=== PATIENT | female | born 1975 | race Caucasian/White ===

== ENCOUNTER 2020-01-05 22:11 | Emergency (ER) | payer SELFPAY ==
[2020-01-05 22:44] VITALS: BP 146/83; PULSE 91; RESP 18; TEMP 36.9; O2SAT 97; BMI 29.5
--- NOTE | 2020-01-05 22:59 | CTR_ITS ---
PROCEDURE INFORMATION: Exam: CT Abdomen And Pelvis With Contrast Exam date and time: 01/05/2020 11:41 PM Age: 44 years old Clinical indication: Other: Blood in stool; Abdominal pain; Acute; Prior surgery; Surgery date: 6+ months; Surgery type: Hysterectomy, bladder; Additional info: Diffuse abd pain, blood in stool TECHNIQUE: Imaging protocol: Computed tomography of the abdomen and pelvis with intravenous contrast. Total DLP: 1445.56 mGy-cm Radiation optimization: All CT scans at this facility use at least one of these dose optimization techniques: automated exposure control; mA and/or kV adjustment per patient size (includes targeted exams where dose is matched to clinical indication); or iterative reconstruction. Contrast material: OMNI 300; Contrast volume: 95 ml; Contrast route: 20G; COMPARISON: No relevant prior studies available. FINDINGS: Liver: Normal. No mass. Gallbladder and bile ducts: The gallbladder appears contracted. There is some haziness seen adjacent to the gallbladder wall. Acalculous cholecystitis cannot be entirely excluded. Pancreas: Normal. No ductal dilation. Spleen: Normal. No splenomegaly. Adrenals: Normal. No mass. Kidneys and ureters: Normal. No hydronephrosis. Stomach and bowel: See Reproductive Finding. Appendix: The appendix is visualized and is normal in configuration. Intraperitoneal space: Unremarkable. No free air. No significant fluid collection. Vasculature: Unremarkable. No abdominal aortic aneurysm. Lymph nodes: Unremarkable. No enlarged lymph nodes. Bladder: Unremarkable as visualized. Reproductive: Status post hysterectomy. There are some strandy and hazy opacity seen adjacent to the vaginal cuff possibly representing postoperative scarring although inflammatory changes cannot be excluded. There is some bowel wall thickening of the rectosigmoid junction adjacent to the strandy opacities and colitis cannot be excluded. Bones/joints: Unremarkable. No acute fracture. Soft tissues: Unremarkable. CT/CT abdomen pelvis w con* [id number] IMPRESSION: 1. There are strandy opacity seen within the pelvic floor adjacent to the distal sigmoid colon. There is mild bowel wall thickening of the distal sigmoid colon as well. Colitis cannot be excluded. 2. Hazy opacities are seen along the serosal margin of the contracted gallbladder. Acalculous cholecystitis cannot be excluded. Radiation Dose CTDIVOL = (mGy): DLP = 1445.56 (mGy-cm)
--- NOTE | 2020-01-05 23:00 | W.ED.ABDPA2 ---
HPI - Abdominal Pain General: Chief Complaint: Abdominal Pain Stated Complaint: abd pain Time Seen by Provider: 01/05/20 22:59 Source: patient Mode of arrival: ambulatory Limitations: no limitations History of Present Illness: HPI narrative: Patient comes in with lower abdominal pain and left abdominal pain for approximately 1 week. Patient reports worsening discomfort and noticeable blood in the stool. Patient states he feels like burning when she pees. Patient denies any pain with defecation. Patient appears well. Patient appears in mild to moderate pain. Associated Symptoms: Reports dysuria Review of Systems General: Reports: 10 or more systems reviewed and unremarkable except in HPI and below GI: Reports: abdominal pain : Reports: painful urination PFSH ED PFSH: Social History Smoking and tobacco status: current every day smoker Physical Exam Const: COMMON NORMALS: no apparent distress and oriented x3 GENERAL APPEARANCE: cooperative HENMT: COMMON NORMALS: normocephalic, external ears normal, EAC's normal, TM's normal bilaterally and external nose normal HEAD & SCALP: normal to inspection and normocephalic FACE & SINUS: normal facial exam NOSE: external nose normal GENERAL EAR: hearing not grossly impaired EXTERNAL EAR: Yes external ears normal EXTERNAL AUDITORY CANAL: EAC's normal TYMPANIC MEMBRANE: TM's normal bilaterally MOUTH: oral and palatal mucosa normal THROAT: posterior oropharynx normal Eye: COMMON NORMALS: PERRL and EOMs intact bilaterally PUPIL: Yes PERRL Neck/C-Spine: COMMON NORMALS: full ROM and no lymphadenopathy Lymph: LYMPHATIC: no lymphedema noted Chest: COMMONS NORMALS: inspection of chest normal and palpation of chest normal Resp: COMMON NORMALS: normal respiratory effort AUSCULTATION: wheezes expiratory wheezes Cardio: COMMON NORMALS: regular rate and regular rhythm RATE: regular rate RHYTHM: regular rhythm GI: COMMON NORMALS: normal to inspection, nondistended, normoactive bowel sounds PALPATION: Yes tender (diffuse, increase left abd wall) : COMMON NORMALS: Yes no CVA tenderness BLADDER/KIDNEY EXAM: Yes no CVA tenderness Back/Pelvis: COMMON NORMALS: no CVA tenderness and thoracic and lumbar spine normal to inspection Extremity: COMMON NORMALS: normal to inspection GENERAL: No edema Neuro: COMMON NORMALS: oriented x3, moves all extremities and no focal motor deficits Psych: COMMON NORMALS: mental status grossly normal and cooperative Skin: COMMON NORMALS: no rashes or lesions noted GENERAL SKIN EXAM: no rashes or lesions noted Course Vital Signs: Vital signs: Vital Signs Temperature 98.5 F 01/05/20 22:44 Pulse Rate 74 01/06/20 01:08 Respiratory Rate 18 01/06/20 01:08 Blood Pressure 123/86 01/06/20 01:08 Pulse Oximetry 98 01/06/20 01:08 MDM - Abdominal Pain MDM Narrative: Medical decision making narrative: Patient comes in today with left lower quadrant pain and pelvic pain. Patient states that she has had some blood in her stool for the last 2 to 3 weeks, and now she is also noted some pain with urination. Patient appears well. Exam notes tenderness to the left lower abdomen. Vital signs are normal. Differential diagnosis includes diverticulitis, UTI, renal calculi, appendicitis, colitis. Laboratory values were fairly normal. CBC showed no abnormalities, CMP showed no abnormalities, and UA was clean. CT scan did note some colitis in the left lower sigmoid colon. Also some pelvic wall inflammation. And some possible inflammation of the gallbladder. Laboratory values did not confirm the gallbladder problem. Suspect patient may have some segmental colitis due to diverticulosis we will treat for this with Cipro and Flaghardik. With recommendations for follow-up with surgeon for colonoscopy. Patient reported understanding and agreed to plan. Lab Data: Labs: Lab Results 01/05/20 01/05/20 01/05/20 Range/Units 22:51 23:00 23:00 WBC 7.0 (4.0-10.0) 10^3/ uL RBC 4.83 (4.1-5.3) 10^6/u L Hgb 13.7 (11.5-15.3) g/dL Hct 41.7 (37.0-47.0) % MCV 86.3 (81-99) fL MCH 28.4 (28.0-34.0) pg MCHC 32.9 (30.0-36.0) g/dL RDW 13.1 (12.1-15.1) % Plt Count 281 (130-400) 10^3/c mm MPV 10.7 H (7.4-10.4) fL Neut % (Auto) 36.0 % Lymph % (Auto) 41.3 % [place] % (Auto) 14.8 % Eos % (Auto) 7.4 % Baso % (Auto) 0.4 % Neut # (Auto) 2.5 (1.8-7.7) 10^3/u L Lymph # (Auto) 2.9 (0.8-4.8) 10^3/u L [place] # (Auto) 1.0 H (0.2-0.9) 10^3/u L Eos # (Auto) 0.5 (0.0-0.8) 10^3/u L Baso # (Auto) 0.0 (0.0-0.1) 10^3/u L Nucleated RBC % (a uto) 0 % Nucleated RBCs # 0.0 /100WBC Sodium 137 (136-145) mmol/L Potassium 4.1 (3.5-5.1) mmol/L Chloride 100 (98-107) mmol/L Carbon Dioxide 26 (22-29) mmol/L Anion Gap 15.1 (5-19) BUN 10 (6-20) mg/dL Creatinine 0.8 (0.5-0.9) mg/dL GFR Calculation 77.2 L (90-130) mL/min Glucose 95 (65-115) mg/dL Calcium 9.9 (8.5-10.5) mg/dL Total Bilirubin 0.2 (0.15-1.2) mg/dL AST 27 (0-32) U/L ALT 29 (0-33) U/L Alkaline Phosphata se 117 H (35-105) IU/L Total Protein 8.0 (6.6-8.7) g/dL Albumin 4.5 (3.5-5.2) g/dL Globulin 3.5 (1.3-4.6) g/dL Lipase 18 (13-60) U/L HCG, Qual (Negative) Urine Color Yellow (Yellow) Urine Appearance Clear (CLEAR) Urine pH 5 (5-7) Ur Specific Gravit y 1.020 (1.005-1.030) Urine Protein Neg (Negative) Urine Glucose (UA) Norm (Normal) Urine Ketones Negative (Negative) Urine Blood Neg (Negative) Urine Nitrate Negative (Negative) Urine Bilirubin Neg (NEGATIVE) Urine Urobilinogen Norm (Negative) mg/dL Ur Leukocyte Jacinda ase Negative (Negative) 01/05/20 Range/Units 23:00 WBC (4.0-10.0) 10^3/ uL RBC (4.1-5.3) 10^6/u L Hgb (11.5-15.3) g/dL Hct (37.0-47.0) % MCV (81-99) fL MCH (28.0-34.0) pg MCHC (30.0-36.0) g/dL RDW (12.1-15.1) % Plt Count (130-400) 10^3/c mm MPV (7.4-10.4) fL Neut % (Auto) % Lymph % (Auto) % [place] % (Auto) % Eos % (Auto) % Baso % (Auto) % Neut # (Auto) (1.8-7.7) 10^3/u L Lymph # (Auto) (0.8-4.8) 10^3/u L [place] # (Auto) (0.2-0.9) 10^3/u L Eos # (Auto) (0.0-0.8) 10^3/u L Baso # (Auto) (0.0-0.1) 10^3/u L Nucleated RBC % (a uto) % Nucleated RBCs # /100WBC Sodium (136-145) mmol/L Potassium (3.5-5.1) mmol/L Chloride (98-107) mmol/L Carbon Dioxide (22-29) mmol/L Anion Gap (5-19) BUN (6-20) mg/dL Creatinine (0.5-0.9) mg/dL GFR Calculation (90-130) mL/min Glucose (65-115) mg/dL Calcium (8.5-10.5) mg/dL Total Bilirubin (0.15-1.2) mg/dL AST (0-32) U/L ALT (0-33) U/L Alkaline Phosphata se (35-105) IU/L Total Protein (6.6-8.7) g/dL Albumin (3.5-5.2) g/dL Globulin (1.3-4.6) g/dL Lipase (13-60) U/L HCG, Qual Negative (Negative) Urine Color (Yellow) Urine Appearance (CLEAR) Urine pH (5-7) Ur Specific Gravit y (1.005-1.030) Urine Protein (Negative) Urine Glucose (UA) (Normal) Urine Ketones (Negative) Urine Blood (Negative) Urine Nitrate (Negative) Urine Bilirubin (NEGATIVE) Urine Urobilinogen (Negative) mg/dL Ur Leukocyte Jacinda ase (Negative) Discharge Plan Discharge Patient Disposition: Home, Self-Care Clinical Impression: Segmental colitis Qualifiers: Digestive disease complication type: unspecified complication Qualified Code(s): K50.119 - Crohn's disease of large intestine with unspecified complications Condition: Stable Prescriptions: New Cipro 500 mg tablet 500 mg PO BID Qty: 14 RF: 0 metronidazole 500 mg tablet 500 mg PO BID 7 Days Qty: 14 RF: 0 hydrocodone-acetaminophen 5-325 mg tablet 1 tab PO Q8H PRN (Reason: pain) Qty: 7 RF: 0 Discharge Orders: Discharge Order (Routine); Ordered 01/06/20 Ordered By: Jason Stock Referrals: Natalie Eric, [facility] [Primary Care Provider] - Discharge Diet: Usual diet Discharge Activity: Increase activity as tolerated Patient Instructions: Infectious Colitis (ED) Activity Restrictions/Additional Instructions: Drink plenty of fluids Activity as tolerated Medications as directed Follow-up with primary care in one week Case management will contact you regarding follow-up appointment for surgeon for colonoscopy. [email or web address] Discharge Date/Time: 01/06/20 01:08 Coding Level of Care Code ED Set Up [employer] Automatic Line for Justine Fwd Exam Comprehensive
[2020-01-05 23:09] LABS: Basophils % 0.4 %; Eosinophils # 0.5 10^3/uL (0.0-0.8); Eosinophils % 7.4 %; Hematocrit 41.7 % (37.0-47.0); Hemoglobin 13.7 g/dL (11.5-15.3); Lymphocytes # 2.9 10^3/uL (0.8-4.8); Lymphocytes % 41.3 %; Mean Corpuscular HGB Conc 32.9 g/dL (30.0-36.0); Mean Corpuscular Hemoglobin 28.4 pg (28.0-34.0); Mean Corpuscular Volume 86.3 fL (81-99); Mean Platelet Volume 10.7 fL (7.4-10.4); Monocytes % 14.8 %; Neutrophils # 2.5 10^3/uL (1.8-7.7); Nucleated Red Blood Cells % 0 %; Platelet Count 281 10^3/cmm (130-400); Red Blood Count 4.83 10^6/uL (4.1-5.3); Red Cell Distribution Width 13.1 % (12.1-15.1)
[2020-01-05] MEDS: HYDROcodone-acetaminophen 7.5-325 mg Tablet 1 TAB PO (23:12)
[2020-01-05] MEDS: ondansetron 4 MG Tablet PO (23:13)
[2020-01-05 23:21] LABS: Add Urine Microscopic? NO
[2020-01-05 23:26] LABS: Alanine Aminotransferase 29 U/L (0-33); Albumin Level 4.5 g/dL (3.5-5.2); Alkaline Phosphatase 117 IU/L (35-105); Anion Gap 15.1 (5-19); Aspartate Amino Transferase 27 U/L (0-32); Blood Urea Nitrogen 10 mg/dL (6-20); Calcium 9.9 mg/dL (8.5-10.5); Carbon Dioxide 26 mmol/L (22-29); Chloride 100 mmol/L (98-107); Creatinine Clr Calc Pharmacy 105.4336; Globulin 3.5 g/dL (1.3-4.6); Glomerular Filtration Rate 77.2 mL/min (90-130); Glucose 95 mg/dL (65-115); Lipase 18 U/L (13-60); Potassium 4.1 mmol/L (3.5-5.1); Sodium 137 mmol/L (136-145); Total Bilirubin 0.2 mg/dL (0.15-1.2)
[2020-01-05] MEDS: sodium chloride 0.9% 1,000 ML 999 ML IV (23:27)
[2020-01-05 23:28] LABS: Bilirubin Urine Neg (NEGATIVE); Blood Urine Neg (Negative); Glucose Urine UA Norm (Normal); Ketones Urine Negative (Negative); Leukocyte Esterase Urine Negative (Negative); Nitrate Urine Negative (Negative); Protein Urine Neg (Negative); Urine Appearance Clear (CLEAR); Urine Color Yellow (Yellow); Urobilinogen Urine Norm (Negative); pH Urine 5 (5-7)
[2020-01-05 23:36] LABS: HCG, Serum Qual Negative (Negative)
[2020-01-06] MEDS: iohexol 300 mg/mL 100 mL Btl IV (00:18)
[2020-01-06] MEDS: ciprofloxacin 500 mg Tablet PO (01:01)
[2020-01-06] MEDS: metroNIDAZOLE 500 MG Tablet PO (01:01)
[2020-01-06 01:08] VITALS: BP 123/86; PULSE 74; RESP 18; O2SAT 98
--- NOTE | 2020-01-06 14:03 | DCPLANNER ---
sourcing manager had message to schedule a follow up appointment for patient with [facility]. sourcing manager called patient to confirm that patient wanted to have the appointment scheduled. sourcing manager was unable to speak with patient at this time a voicemail was left for patient to return counter caser phone call.
== END 2020-01-06 01:08 | disposition home or self-care (01) ==
PROVIDERS: Emergency Provider Nurse Practitioner Family; Family Provider Nurse Practitioner; PCP Nurse Practitioner
DX: K50.10 Crohn's disease of large intestine without complications (principal); F17.200 Nicotine dependence, unspecified, uncomplicated
CPT/HCPCS: 74177; 80053; 81003; 83690; 84703; 85025; 96360; 99282; 99283; J7030; Q0162; Q9967

== ENCOUNTER 2020-04-14 23:51 | Emergency (ER) | payer SELFPAY ==
[2020-04-15 00:19] VITALS: BP 136/88; PULSE 74; RESP 14; TEMP 36.8; O2SAT 98; BMI 29.5
--- NOTE | 2020-04-15 00:29 | ED_ITS ---
HPI - Neuro Symptoms/Deficit General: Chief Complaint: Neuro Symptoms/Deficit Stated Complaint: high bp/dizziness Time Seen by Provider: 04/15/20 00:29 History of Present Illness: HPI Narrative: Oxana is a nice 44-year-old female who states that about 5 PM today she felt like she developed a headache in the left side her for her face became numb. She had noticed the previous day that her blood pressure was elevated but did not have the symptoms of headache and facial numbness till today. Because they persisted and she was getting concerned about the possibility of a stroke she presented here to the emergency department. She states her left arm feels strange but other than that she denies any other complaints or concerns. Associated symptoms: Reports headache(s); Deny chest pain, diaphoresis, malaise, nausea, syncope, vertigo or vomiting Review of Systems Const: Denies: fever(s), chills, body aches, fatigue, malaise or diaphoresis Eyes: Denies: change in vision, blind spots or photophobia ENMT: Denies: throat pain, odynophagia, hoarseness, swelling of lips/tongue, ear or mastoid pain, ear discharge, change in hearing or nasal discharge Card: Denies: chest pain, palpitations, irregular heart rhythm, edema, lightheadedness, syncope, pre-syncope, dyspnea on exertion or orthopnea Resp: Denies: dyspnea, productive cough, non-productive cough, wheezing, hemoptysis or chest congestion GI: Denies: abdominal pain, nausea, vomiting, hematemesis, coffee ground emesis, heartburn, diarrhea, constipation, GI cramping, hematochezia or melena : Denies: flank pain, dysuria, urinary frequency, urinary urgency or hematuria Musc: Denies: neck pain, back pain, extremity pain, extremity swelling, joint pain, joint swelling, joint redness, joint warmth or joint stiffness Skin/Breast: Denies: rash, pruritus, erythema, skin tenderness or jaundice Neuro: Reports: headache(s), numbness in extremities and weakness in extremities; Denies: lack of coordination, difficulty walking, dizziness, vertigo, confusion or Slurred speech present Hudson/Lymph: Denies: easy bruising, easy bleeding, petechiae, purpura or enlarged lymph nodes All/Imm: Denies: urticaria, throat swelling, tongue swelling, facial swelling or acute wheezing PFSH ED PFSH: Medical History (Updated 04/15/20 @ 02:58 by Jennifer Willingham) Migraines Social History Smoking and tobacco status: current every day smoker NIH stroke score NIHSS: Level Of Consciousness - 1a: 0 Level Of Consciousness Questions - 1b: Both Correct Level Of Consciousness Commands - 1c: Both Correct Best Gaze - 2: Normal Visual Santos - 3: No Visual Loss Facial Palsy - 4: Normal Motor Arm Right - 5: No Drift Motor Arm Left - 5: Drift Motor Leg Right - 6: No Drift Motor Leg Left - 6: Drift Limb Ataxia - 7: Present In One Limb Sensory - 8: Mild To Moderate Loss Best Language - 9: No Aphasia Dysarthia - 10: Normal Extinction And Inattention - 11: 0 Score: Total Score: 4 Physical Exam Const: COMMON NORMALS: no acute distress, patient oriented x3, no limitations, healthy appearing and well nourished GENERAL APPEARANCE: cooperative, well kempt and well developed HENMT: COMMON NORMALS: normocephalic, atraumatic, hearing grossly normal bilaterally, external ears normal, EAC's normal, Normal external nose present and moist oral mucous membranes HEAD & SCALP: normocephalic and atraumatic NOSE: Normal external nose present and Normal nares present EXTERNAL EAR: Yes external ears normal EXTERNAL AUDITORY CANAL: EAC's normal MOUTH: Normal oral and palatal mucosa present, lip normal and tongue normal Eye: COMMON NORMALS: Equal, round and reactive pupils present, EOMs intact bilaterally, conjunctivae normal and no scleral icterus GENERAL EYE: appearance normal, both eyes and all related structures ALIGNMENT: Yes alignment normal PERIORBITAL: periorbital findings normal EYELID: eyelids normal CONJUNCTIVA: Yes conjunctivae normal SCLERA: sclerae normal PUPIL: Yes Equal, round and reactive pupils present Neck/C-Spine: COMMON NORMALS: full ROM, no lymphadenopathy, supple, no me ningeal signs and no JVD GENERAL: Yes normal visual inspection and Yes trachea midline Chest: COMMONS NORMALS: normal inspection of the chest and normal palpation of entire chest wall Resp: COMMON NORMALS: normal respiratory effort, No retractions, No use of accessory muscles and clear to auscultation bilaterally EFFORT & INSPECTION: Yes able to speak in complete sentences and Yes symmetric chest movement AUSCULTATION: clear to auscultation bilaterally, no crackles, no rales, no rhonchi and no wheezes Cardio: COMMON NORMALS: no JVD, regular rate, regular rhythm, S1 normal heart sound present, S2 normal heart sound present, No gallops present (Cardio), No clicks present (Cardio), No murmurs present (Cardio) and No rub (Cardio) RATE: regular rate RHYTHM: regular rhythm HEART SOUNDS: S1 normal heart sound present and S2 normal heart sound present GI: COMMON NORMALS: Soft to palpation and No hepatosplenomegaly present PALPATION: Yes Soft to palpation, No Tenderness to palpation present (GI), No Guarding due to palpation present (GI), No Rigid due to palpation, Yes No hepatosplenomegaly present, No Hernia present, No Palpable mass present and No Pulsatile mass present : COMMON NORMALS: Yes no CVA tenderness BLADDER/KIDNEY EXAM: Yes no CVA tenderness EXTERNAL FEMALE EXAM: No Hernia present Back/Pelvis: COMMON NORMALS: no CVA tenderness, thoracic and lumbar spine normal to inspection, no thoracic nor lumbar tenderness and thoraco-lumbar ROM normal Extremity: COMMON NORMALS: normal to inspection, full ROM, capillary refill normal, no joint enlargement, no clubbing, cyanosis or edema and no calf ten derness Neuro: COMMON NORMALS: patient oriented x3 MENINGEAL SIGNS: Yes no meningeal signs Psych: COMMON NORMALS: mental status grossly normal, Normal thought process present, cooperative, normal affect, speech normal and activity/motor behavior normal APPEARANCE: Yes well kempt SPEECH: Yes normal speech THOUGHT PROCESS: Normal thought process present Skin: COMMON NORMALS: no rashes or lesions noted, turgor normal, no jaundice, no petechiae and no mottling GENERAL SKIN EXAM: no rashes or lesions noted and turgor normal Course ED course: 0213 -the patient is now refusing to stay for further evaluation. Her symptoms and headache are greatly improved but not resolved. She understands that if she leaves she will be leaving AGAINST MEDICAL ADVICE but at this time she she states that is what she wants to do. I am going to give her until her Depakote has finished infusing to see if she will change her mind and she understands this but at that time she states she will make her decision. Vital Signs: Vital signs: Vital Signs Temperature 98.2 F 04/15/20 00:19 Pulse Rate 64 04/15/20 03:36 Respiratory Rate 16 04/15/20 03:36 Blood Pressure 105/77 04/15/20 03:36 Pulse Oximetry 95 04/15/20 03:36 MDM - Neuro Symptoms/Deficit MDM Narrative: Medical decision making narrative: The case had been reviewed with Dr. Mercado and he had agreed to admit for CVA versus complicated migraine but the patient is changed her mind. She states her symptoms are significantly better although they have not completely resolved. I have informed the patient that this could be a prelude to a bigger stroke or she could have complication from this stroke to the extent it would threaten her life. Despite this the patient is refusing to stay and is demanding to go home. I have expressed to her that if she leaves she will be leaving AGAINST MEDICAL ADVICE and that a stroke could be a disabling thing as well as life-threatening problem but despite this warning she refuses and wants to leave. She believes this is just her migraine and if she can go home and get some sleep she will feel better. After much discussion the patient still understands that she is welcome to return but at this time she is still insisting upon discharge. The patient was warned but she was also welcome to to return. Lab Data: Attestation: I reviewed the patient's lab results. Labs: Lab Results 04/15/20 04/15/20 04/15/20 Range/Units 00:40 00:40 00:40 WBC 8.3 (4.0-10.0) 10^3/ uL RBC 4.71 (4.1-5.3) 10^6/u L Hgb 13.8 (11.5-15.3) g/dL Hct 41.2 (37.0-47.0) % MCV 87.5 (81-99) fL MCH 29.3 (28.0-34.0) pg MCHC 33.5 (30.0-36.0) g/dL RDW 13.1 (12.1-15.1) % Plt Count 262 (130-400) 10^3/c mm MPV 11.2 H (7.4-10.4) fL Neut % (Auto) 56.3 % Lymph % (Auto) 30.0 % [place] % (Auto) 9.2 % Eos % (Auto) 3.9 % Baso % (Auto) 0.4 % Neut # (Auto) 4.7 (1.8-7.7) 10^3/u L Lymph # (Auto) 2.5 (0.8-4.8) 10^3/u L [place] # (Auto) 0.8 (0.2-0.9) 10^3/u L Eos # (Auto) 0.3 (0.0-0.8) 10^3/u L Baso # (Auto) 0.0 (0.0-0.1) 10^3/u L Nucleated RBC % (a uto) 0 % Nucleated RBCs # 0.0 /100WBC PT 12.30 (10.5-13.3) SECO NDS INR 0.89 (0.8-1.2) APTT 32.5 (23.9-36.7) SECO NDS Sodium 139 (136-145) mmol/L Potassium 4.1 (3.5-5.1) mmol/L Chloride 103 (98-107) mmol/L Carbon Dioxide 24 (22-29) mmol/L Anion Gap 16.1 (5-19) BUN 8 (6-20) mg/dL Creatinine 0.7 (0.5-0.9) mg/dL GFR Calculation 90.1 (90-130) mL/min Glucose 109 (65-115) mg/dL Calculated Osmolal ity 284 L (285-295) mOsm/k g Calcium 9.7 (8.5-10.5) mg/dL Magnesium 2.6 H (1.7-2.3) mg/dL Total Bilirubin 0.2 (0.15-1.2) mg/dL AST 20 (0-32) U/L ALT 17 (0-33) U/L Alkaline Phosphata se 99 (35-105) IU/L Troponin T Baselin e (0-10) ng/mL Troponin T 120 Min white earth (0-10) ng/mL Delta Troponin T (0-10) ABS# Total Protein 7.1 (6.6-8.7) g/dL Albumin 4.4 (3.5-5.2) g/dL Globulin 2.7 (1.3-4.6) g/dL Urine Color (Yellow) Urine Appearance (CLEAR) Urine pH (5-7) Ur Specific Gravit y (1.005-1.030) Urine Protein (Negative) Urine Glucose (UA) (Normal) Urine Ketones (Negative) Urine Blood (Negative) Urine Nitrate (Negative) Urine Bilirubin (NEGATIVE) Prot Sulfosalicyli c Acd (Negative) Urine Urobilinogen (Negative) mg/dL Ur Leukocyte Jacinda ase (Negative) Urine RBC (0-2) /hpf Urine WBC (0-5) /hpf Ur Squamous Epith Cells (0-5) Amorphous Sediment Urine Bacteria (NONE) Urine Mucus Urine Opiates Scre en (Negative) ng/mL Ur Barbiturates Sc reen (Negative) ng/mL Ur Phencyclidine S crn (Negative) ng/mL Ur Amphetamines Sc reen (Negative) ng/mL U Benzodiazepines Scrn (Negative) ng/mL Urine Cocaine Scre en (Negative) ng/mL U Marijuana (THC) Screen (Negative) ng/mL Ethyl Alcohol < 10 (0-10) mg/dL 04/15/20 04/15/20 04/15/20 Range/Units 00:40 00:40 00:40 WBC (4.0-10.0) 10^3/ uL RBC (4.1-5.3) 10^6/u L Hgb (11.5-15.3) g/dL Hct (37.0-47.0) % MCV (81-99) fL MCH (28.0-34.0) pg MCHC (30.0-36.0) g/dL RDW (12.1-15.1) % Plt Count (130-400) 10^3/c mm MPV (7.4-10.4) fL Neut % (Auto) % Lymph % (Auto) % [place] % (Auto) % Eos % (Auto) % Baso % (Auto) % Neut # (Auto) (1.8-7.7) 10^3/u L Lymph # (Auto) (0.8-4.8) 10^3/u L [place] # (Auto) (0.2-0.9) 10^3/u L Eos # (Auto) (0.0-0.8) 10^3/u L Baso # (Auto) (0.0-0.1) 10^3/u L Nucleated RBC % (a uto) % Nucleated RBCs # /100WBC PT (10.5-13.3) SECO NDS INR (0.8-1.2) APTT (23.9-36.7) SECO NDS Sodium (136-145) mmol/L Potassium (3.5-5.1) mmol/L Chloride (98-107) mmol/L Carbon Dioxide (22-29) mmol/L Anion Gap (5-19) BUN (6-20) mg/dL Creatinine (0.5-0.9) mg/dL GFR Calculation (90-130) mL/min Glucose (65-115) mg/dL Calculated Osmolal ity (285-295) mOsm/k g Calcium (8.5-10.5) mg/dL Magnesium (1.7-2.3) mg/dL Total Bilirubin (0.15-1.2) mg/dL AST (0-32) U/L ALT (0-33) U/L Alkaline Phosphata se (35-105) IU/L Troponin T Baselin e 6 (0-10) ng/mL Troponin T 120 Min white earth (0-10) ng/mL Delta Troponin T (0-10) ABS# Total Protein (6.6-8.7) g/dL Albumin (3.5-5.2) g/dL Globulin (1.3-4.6) g/dL Urine Color Straw (Yellow) Urine Appearance Clear (CLEAR) Urine pH 8 H (5-7) Ur Specific Gravit y 1.005 (1.005-1.030) Urine Protein Neg (Negative) Urine Glucose (UA) Norm (Normal) Urine Ketones Negative (Negative) Urine Blood Neg (Negative) Urine Nitrate Negative (Negative) Urine Bilirubin Neg (NEGATIVE) Prot Sulfosalicyli c Acd Negative (Negative) Urine Urobilinogen Norm (Negative) mg/dL Ur Leukocyte Jacinda ase Negative (Negative) Urine RBC None (0-2) /hpf Urine WBC 0-4 H (0-5) /hpf Ur Squamous Epith Cells 0-4 H (0-5) Amorphous Sediment 1+ Urine Bacteria Trace (NONE) Urine Mucus Trace Urine Opiates Scre en Negative (Negative) ng/mL Ur Barbiturates Sc reen Negative (Negative) ng/mL Ur Phencyclidine S crn Negative (Negative) ng/mL Ur Amphetamines Sc reen Negative (Negative) ng/mL U Benzodiazepines Scrn Negative (Negative) ng/mL Urine Cocaine Scre en Negative (Negative) ng/mL U Marijuana (THC) Screen Negative (Negative) ng/mL Ethyl Alcohol (0-10) mg/dL 04/15/20 Range/Units 02:35 WBC (4.0-10.0) 10^3/ uL RBC (4.1-5.3) 10^6/u L Hgb (11.5-15.3) g/dL Hct (37.0-47.0) % MCV (81-99) fL MCH (28.0-34.0) pg MCHC (30.0-36.0) g/dL RDW (12.1-15.1) % Plt Count (130-400) 10^3/c mm MPV (7.4-10.4) fL Neut % (Auto) % Lymph % (Auto) % [place] % (Auto) % Eos % (Auto) % Baso % (Auto) % Neut # (Auto) (1.8-7.7) 10^3/u L Lymph # (Auto) (0.8-4.8) 10^3/u L [place] # (Auto) (0.2-0.9) 10^3/u L Eos # (Auto) (0.0-0.8) 10^3/u L Baso # (Auto) (0.0-0.1) 10^3/u L Nucleated RBC % (a uto) % Nucleated RBCs # /100WBC PT (10.5-13.3) SECO NDS INR (0.8-1.2) APTT (23.9-36.7) SECO NDS Sodium (136-145) mmol/L Potassium (3.5-5.1) mmol/L Chloride (98-107) mmol/L Carbon Dioxide (22-29) mmol/L Anion Gap (5-19) BUN (6-20) mg/dL Creatinine (0.5-0.9) mg/dL GFR Calculation (90-130) mL/min Glucose (65-115) mg/dL Calculated Osmolal ity (285-295) mOsm/k g Calcium (8.5-10.5) mg/dL Magnesium (1.7-2.3) mg/dL Total Bilirubin (0.15-1.2) mg/dL AST (0-32) U/L ALT (0-33) U/L Alkaline Phosphata se (35-105) IU/L Troponin T Baselin e (0-10) ng/mL Troponin T 120 Min white earth 6.00 (0-10) ng/mL Delta Troponin T 0 (0-10) ABS# Total Protein (6.6-8.7) g/dL Albumin (3.5-5.2) g/dL Globulin (1.3-4.6) g/dL Urine Color (Yellow) Urine Appearance (CLEAR) Urine pH (5-7) Ur Specific Gravit y (1.005-1.030) Urine Protein (Negative) Urine Glucose (UA) (Normal) Urine Ketones (Negative) Urine Blood (Negative) Urine Nitrate (Negative) Urine Bilirubin (NEGATIVE) Prot Sulfosalicyli c Acd (Negative) Urine Urobilinogen (Negative) mg/dL Ur Leukocyte Jacinda ase (Negative) Urine RBC (0-2) /hpf Urine WBC (0-5) /hpf Ur Squamous Epith Cells (0-5) Amorphous Sediment Urine Bacteria (NONE) Urine Mucus Urine Opiates Scre en (Negative) ng/mL Ur Barbiturates Sc reen (Negative) ng/mL Ur Phencyclidine S crn (Negative) ng/mL Ur Amphetamines Sc reen (Negative) ng/mL U Benzodiazepines Scrn (Negative) ng/mL Urine Cocaine Scre en (Negative) ng/mL U Marijuana (THC) Screen (Negative) ng/mL Ethyl Alcohol (0-10) mg/dL Imaging Data^: CT Head: Radiologist's impression: [address] [address] [address] Scan Report Signed Patient: Oxana Rock Unit #: [id number] : 1975 Age/Sex: 44 / F ADM Date: 04/14/20 Loc: ER Room/Bed: Attending Dr: Ordering Provider/Ordering MD: Jennifer Willingham DO Date of Service: 04/15/20 Procedure(s): CT head wo con* [id number] Accession Number(s): [id number] Report Number: [id number] PROCEDURE INFORMATION: Exam: CT Head Without Contrast Exam date and time: 04/15/2020 12:44 AM Age: 44 years old Clinical indication: Patient HX: C/O ENGLE and dizziness; Additional info: CVA symptoms TECHNIQUE: Imaging protocol: Computed tomography of the head without contrast. Radiation optimization: All CT scans at this facility use at least one of these dose optimization techniques: automated exposure control; mA and/or kV adjustment per patient size (includes targeted exams where dose is matched to clinical indication); or iterative reconstruction. COMPARISON: CT head wo con* [id number] 03/04/2016 2:37 PM RADIATION DOSE METRICS: Total DLP: 777.24 mGy-cm FINDINGS: Brain: No acute intracranial hemorrhage or mass effect. No definite acute infarct by CT. MRI could be more sensitive/specific for detection, as clinically directed. Ventricles: Ventricle size is normal for age. Bones/joints: No definite acute skull fracture. Sinuses: [id number] mucosal thickening/opacity in the ethmoid sinuses. Included paranasal sinuses otherwise appear essentially clear. Mastoid air cells: No significant acute finding. CT/CT head wo con* [id number] IMPRESSION: 1. No acute intracranial hemorrhage or mass effect. 2. No definite acute infarct by CT, see above. 3. Other findings discussed above. Radiation Dose CTDIVOL = (mGy): DLP = 777.24 (mGy-cm) Dictated By: Rolando Jones MD Signed By: Rolando Jones MD Signed Date/Time: 04/15/20117 DD/ 6 CTA Head Neck: Radiologist's impression: [address] [address] [address] Scan Report Signed Patient: Oxana Rock Unit #: [id number] : 1975 Age/Sex: 44 / F ADM Date: 04/14/20 Loc: ER Room/Bed: Attending Dr: Ordering Provider/Ordering MD: Jennifer Willingham DO Date of Service: 04/15/20 Procedure(s): CT angio headneck* [id number] Accession Number(s): [id number] Report Number: [id number] PROCEDURE INFORMATION: Exam: CT Angiography Head With Contrast Exam date and time: 04/15/2020 12:44 AM Age: 44 years old Clinical indication: Dizziness and giddiness and headache; Patient HX: C/O ENGLE and dizziness; Additional info: CVA symptoms TECHNIQUE: Imaging protocol: Computed tomography angiography of the head with intravenous contrast. 3D rendering: MIP and/or 3D reconstructed images were created by the technologist. Radiation optimization: All CT scans at this facility use at least one of these dose optimization techniques: automated exposure control; mA and/or kV adjustment per patient size (includes targeted exams where dose is matched to clinical indication); or iterative reconstruction. Contrast material: OMNI 350; Contrast volume: 95 ml; Contrast route: 20G; COMPARISON: CT head wo con* [id number] 04/15/2020 12:47 AM RADIATION DOSE METRICS: Total DLP: 1715.26 mGy-cm FINDINGS: Anterior cerebral arteries: No occlusion or significant stenosis. No aneurysm. Right internal carotid artery: Intracranial segment is patent with no significant stenosis or occlusion. No aneurysm. Right middle cerebral artery: No occlusion or significant stenosis. No aneurysm. Right posterior cerebral artery: No occlusion or significant stenosis. No aneurysm. Right vertebral artery: No occlusion or significant stenosis. No aneurysm. Left internal carotid artery: Intracranial segment is patent with no significant stenosis or occlusion. No aneurysm. Left middle cerebral artery: No occlusion or significant stenosis. No aneurysm. Left posterior cerebral artery: No occlusion or significant stenosis. No aneurysm. Left vertebral artery: No occlusion or significant stenosis. No aneurysm. Basilar artery: No occlusion or significant stenosis. No aneurysm. IMPRESSION: No large vessel stenosis or occlusion. PROCEDURE INFORMATION: Exam: CT Angiography Neck With Contrast Exam date and time: 04/15/2020 12:44 AM Age: 44 years old Clinical indication: Dizziness and giddiness and headache; Patient HX: C/O ENGLE and dizziness; Additional info: CVA symptoms TECHNIQUE: Imaging protocol: Computed tomography angiography of the neck with intravenous contrast. 3D rendering: MIP and/or 3D reconstructed images were created by the technologist. Radiation optimization: All CT scans at this facility use at least one of these dose optimization techniques: automated exposure control; mA and/or kV adjustment per patient size (includes targeted exams where dose is matched to clinical indication); or iterative reconstruction. Contrast material: OMNI 350; Contrast volume: 95 ml; Contrast route: 20G; COMPARISON: CT head wo con* [id number] 04/15/2020 12:47 AM RADIATION DOSE METRICS: Total DLP: 1715.26 mGy-cm FINDINGS: Right common carotid artery: No stenosis. No dissection or occlusion. Right internal carotid artery: No stenosis of the extracranial segment. No dissection or occlusion. Right external carotid artery: No occlusion or stenosis of the origin. Right vertebral artery: No stenosis. No dissection or occlusion. Left common carotid artery: No stenosis. No dissection or occlusion. Left internal carotid artery: No stenosis of the extracranial segment. No dissection or occlusion. Left external carotid artery: No occlusion or stenosis of the origin. Left vertebral artery: No stenosis. No dissection or occlusion. Bones/joints: No acute fracture. Soft tissues: Normal. No significant soft tissue swelling. CT/CT angio headneck* [id number] IMPRESSION: No stenosis or occlusion. REFERENCES: NASCET CRITERIA. The degree of internal carotid artery stenosis is based on NASCET criteria. Normal is no stenosis. Mild is less than 50% stenosis. Moderate is 50-69% stenosis. Severe is 70% to 99% stenosis. Total occlusion is no detectable patent lumen. Radiation Dose CTDIVOL = (mGy): DLP = 1715.26 1715.26 (mGy-cm) Dictated By: Rene Lake MD Signed By: Rene Lake MD Signed Date/Time: 04/15/20116 DD/ 5 EKG Data^: EKG 1: Attestation: I personally reviewed and interpreted this EKG as follows: EKG interpretation date: 04/15/20 EKG interpretation time: 01:29 Interpretation: Normal sinus rhythm at 65 beats a minute, no acute ST or T wave changes. Discharge Plan Discharge Patient Disposition: Home, Self-Care Clinical Impression: CVA (cerebral vascular accident) Qualifiers: CVA mechanism: unspecified Qualified Code(s): I63.9 - Cerebral infarction, unspecified Migraines Qualifiers: Migraine type: unspecified Status migrainosus presence: without status migrainosus Intractability: intractable Qualified Code(s): G43.919 - Migraine, unspecified, intractable, without status migrainosus Condition: Stable Prescriptions: New aspirin 325 mg tablet 325 mg PO DAILY Qty: 30 RF: 0 No Action Cipro 500 mg tablet 500 mg PO BID Qty: 14 RF: 0 hydrocodone-acetaminophen 5-325 mg tablet 1 tab PO Q8H PRN (Reason: pain) Qty: 7 RF: 0 Discharge Orders: Discharge Order (Routine); Ordered 04/15/20 Ordered By: Jennifer Willingham Referrals: Lidia Cruz MD [Physician] - 1-3 days Natalie Eric FNP-C [Primary Care Provider] - 1-3 days Discharge Diet: Advance as tolerated Discharge Activity: Increase activity as tolerated Patient Instructions: Migraine Headache (ED), Acute Headache (ED), Ischemic Stroke (GEN) Activity Restrictions/Additional Instructions: You're leaving AGAINST MEDICAL ADVICE and are at risk for or severe permanent disability by doing so. You are more than welcome to return at any time for recheck and for further evaluation and care suture change you change your mind. Stand Alone Forms: Against Medical Advice Discharge Date/Time: 04/15/20 03:37 Coding Level of Care Code ED Timber Inspector for Kongg Fwd Exam Comprehensive
[2020-04-15 00:31] VITALS: BP 156/95; PULSE 75; RESP 16; O2SAT 95
--- NOTE | 2020-04-15 00:37 | CTR_ITS ---
PROCEDURE INFORMATION: Exam: CT Angiography Head With Contrast Exam date and time: 04/15/2020 12:44 AM Age: 44 years old Clinical indication: Dizziness and giddiness and headache; Patient HX: C/O ENGLE and dizziness; Additional info: CVA symptoms TECHNIQUE: Imaging protocol: Computed tomography angiography of the head with intravenous contrast. 3D rendering: MIP and/or 3D reconstructed images were created by the technologist. Radiation optimization: All CT scans at this facility use at least one of these dose optimization techniques: automated exposure control; mA and/or kV adjustment per patient size (includes targeted exams where dose is matched to clinical indication); or iterative reconstruction. Contrast material: OMNI 350; Contrast volume: 95 ml; Contrast route: 20G; COMPARISON: CT head wo con* [id number] 04/15/2020 12:47 AM RADIATION DOSE METRICS: Total DLP: 1715.26 mGy-cm FINDINGS: Anterior cerebral arteries: No occlusion or significant stenosis. No aneurysm. Right internal carotid artery: Intracranial segment is patent with no significant stenosis or occlusion. No aneurysm. Right middle cerebral artery: No occlusion or significant stenosis. No aneurysm. Right posterior cerebral artery: No occlusion or significant stenosis. No aneurysm. Right vertebral artery: No occlusion or significant stenosis. No aneurysm. Left internal carotid artery: Intracranial segment is patent with no significant stenosis or occlusion. No aneurysm. Left middle cerebral artery: No occlusion or significant stenosis. No aneurysm. Left posterior cerebral artery: No occlusion or significant stenosis. No aneurysm. Left vertebral artery: No occlusion or significant stenosis. No aneurysm. Basilar artery: No occlusion or significant stenosis. No aneurysm. IMPRESSION: No large vessel stenosis or occlusion. PROCEDURE INFORMATION: Exam: CT Angiography Neck With Contrast Exam date and time: 04/15/2020 12:44 AM Age: 44 years old Clinical indication: Dizziness and giddiness and headache; Patient HX: C/O ENGLE and dizziness; Additional info: CVA symptoms TECHNIQUE: Imaging protocol: Computed tomography angiography of the neck with intravenous contrast. 3D rendering: MIP and/or 3D reconstructed images were created by the technologist. Radiation optimization: All CT scans at this facility use at least one of these dose optimization techniques: automated exposure control; mA and/or kV adjustment per patient size (includes targeted exams where dose is matched to clinical indication); or iterative reconstruction. Contrast material: OMNI 350; Contrast volume: 95 ml; Contrast route: 20G; COMPARISON: CT head wo con* [id number] 04/15/2020 12:47 AM RADIATION DOSE METRICS: Total DLP: 1715.26 mGy-cm FINDINGS: Right common carotid artery: No stenosis. No dissection or occlusion. Right internal carotid artery: No stenosis of the extracranial segment. No dissection or occlusion. Right external carotid artery: No occlusion or stenosis of the origin. Right vertebral artery: No stenosis. No dissection or occlusion. Left common carotid artery: No stenosis. No dissection or occlusion. Left internal carotid artery: No stenosis of the extracranial segment. No dissection or occlusion. Left external carotid artery: No occlusion or stenosis of the origin. Left vertebral artery: No stenosis. No dissection or occlusion. Bones/joints: No acute fracture. Soft tissues: Normal. No significant soft tissue swelling. CT/CT angio headneck* [id number] IMPRESSION: No stenosis or occlusion. REFERENCES: NASCET CRITERIA. The degree of internal carotid artery stenosis is based on NASCET criteria. Normal is no stenosis. Mild is less than 50% stenosis. Moderate is 50-69% stenosis. Severe is 70% to 99% stenosis. Total occlusion is no detectable patent lumen. Radiation Dose CTDIVOL = (mGy): DLP = 1715.26~1715.26 (mGy-cm)
--- NOTE | 2020-04-15 00:37 | CTR_ITS ---
PROCEDURE INFORMATION: Exam: CT Head Without Contrast Exam date and time: 04/15/2020 12:44 AM Age: 44 years old Clinical indication: Patient HX: C/O ENGLE and dizziness; Additional info: CVA symptoms TECHNIQUE: Imaging protocol: Computed tomography of the head without contrast. Radiation optimization: All CT scans at this facility use at least one of these dose optimization techniques: automated exposure control; mA and/or kV adjustment per patient size (includes targeted exams where dose is matched to clinical indication); or iterative reconstruction. COMPARISON: CT head wo con* [id number] 03/04/2016 2:37 PM RADIATION DOSE METRICS: Total DLP: 777.24 mGy-cm FINDINGS: Brain: No acute intracranial hemorrhage or mass effect. No definite acute infarct by CT. MRI could be more sensitive/specific for detection, as clinically directed. Ventricles: Ventricle size is normal for age. Bones/joints: No definite acute skull fracture. Sinuses: [id number] mucosal thickening/opacity in the ethmoid sinuses. Included paranasal sinuses otherwise appear essentially clear. Mastoid air cells: No significant acute finding. CT/CT head wo con* [id number] IMPRESSION: 1. No acute intracranial hemorrhage or mass effect. 2. No definite acute infarct by CT, see above. 3. Other findings discussed above. Radiation Dose CTDIVOL = (mGy): DLP = 777.24 (mGy-cm)
--- NOTE | 2020-04-15 00:38 | ECG_ITS ---
Measurements Intervals [place] Rate: 65 P: 54 IN: 135 QRS: -8 QRSD: 83 T: 41 QT: 401 QTc: 418 SINUS RHYTHM No previous ECG available for comparison Electronically Signed On 04-15-2020 7:48:19 CDT by Jose Hernandez M.D. [id number]
--- NOTE | 2020-04-15 00:38 | XRR_ITS ---
PROCEDURE INFORMATION: Exam: XR Chest, 1 View Exam date and time: 04/15/2020 12:39 AM Age: 44 years old Clinical indication: Other: Dizzy; Additional info: CVA TECHNIQUE: Imaging protocol: XR of the chest Views: 1 view. COMPARISON: CR Chest 1 [place] [id number] 08/12/2014 11:37 PM FINDINGS: Lungs: Unremarkable. No consolidation. Pleural space: Unremarkable. No pleural effusion. No pneumothorax. Heart/Mediastinum: Unremarkable. No cardiomegaly. Bones/joints: Unremarkable. XR/XR chest 1V portable [id number] IMPRESSION: No acute findings.
[2020-04-15] MEDS: metoclopramide 5 mg/mL SDV 2 mL 10 MG IV (00:47)
[2020-04-15 01:00] LABS: Basophils % 0.4 %; Eosinophils # 0.3 10^3/uL (0.0-0.8); Eosinophils % 3.9 %; Hematocrit 41.2 % (37.0-47.0); Hemoglobin 13.8 g/dL (11.5-15.3); Lymphocytes # 2.5 10^3/uL (0.8-4.8); Mean Corpuscular HGB Conc 33.5 g/dL (30.0-36.0); Mean Corpuscular Hemoglobin 29.3 pg (28.0-34.0); Mean Corpuscular Volume 87.5 fL (81-99); Mean Platelet Volume 11.2 fL (7.4-10.4); Monocytes # 0.8 10^3/uL (0.2-0.9); Monocytes % 9.2 %; Neutrophils # 4.7 10^3/uL (1.8-7.7); Neutrophils % 56.3 %; Nucleated Red Blood Cells % 0 %; Platelet Count 262 10^3/cmm (130-400); Red Blood Count 4.71 10^6/uL (4.1-5.3); Red Cell Distribution Width 13.1 % (12.1-15.1); White Blood Count 8.3 10^3/uL (4.0-10.0)
[2020-04-15 01:06] LABS: INR 0.89 (0.8-1.2)
[2020-04-15] MEDS: iohexol 350 mg/mL 100 mL Btl IV (01:06)
[2020-04-15 01:07] LABS: Partial Thromboplastin Time 32.5 SECONDS (23.9-36.7)
[2020-04-15 01:13] LABS: Alanine Aminotransferase 17 U/L (0-33); Albumin Level 4.4 g/dL (3.5-5.2); Alkaline Phosphatase 99 IU/L (35-105); Anion Gap 16.1 (5-19); Aspartate Amino Transferase 20 U/L (0-32); Blood Urea Nitrogen 8 mg/dL (6-20); Calcium 9.7 mg/dL (8.5-10.5); Carbon Dioxide 24 mmol/L (22-29); Chloride 103 mmol/L (98-107); Globulin 2.7 g/dL (1.3-4.6); Glomerular Filtration Rate 90.1 mL/min (90-130); Glucose 109 mg/dL (65-115); Magnesium 2.6 mg/dL (1.7-2.3); Osmolality Calculated 284 mOsm/kg (285-295); Potassium 4.1 mmol/L (3.5-5.1); Sodium 139 mmol/L (136-145); Total Bilirubin 0.2 mg/dL (0.15-1.2); Total Protein 7.1 g/dL (6.6-8.7)
[2020-04-15 01:14] LABS: Troponin(5th) Baseline 6 ng/mL (0-10)
[2020-04-15 01:29] LABS: Alcohol Level < 10 mg/dL (0-10)
[2020-04-15 01:33] LABS: Bilirubin Urine Neg (NEGATIVE); Blood Urine Neg (Negative); Glucose Urine UA Norm (Normal); Ketones Urine Negative (Negative); Leukocyte Esterase Urine Negative (Negative); Nitrate Urine Negative (Negative); Protein Urine Neg (Negative); Specific Gravity, Urine 1.005 (1.005-1.030); Sulfosalicylic Acid Urine Negative (Negative); Urine Appearance Clear (CLEAR); Urine Color Straw (Yellow); Urobilinogen Urine Norm (Negative); pH Urine 8 (5-7)
[2020-04-15 01:35] LABS: Add Urine Culture? No; Amorphous Sediment Urine 1+; Bacteria Urine TRACE; Mucus Urine TRACE; Squamous Epithelial Cell Urine 0-4 (0-5); WBC Urine 0-4 /hpf (0-5)
[2020-04-15 01:38] LABS: Amphetamines Screen Urine Negative (Negative); Barbiturates Screen Urine Negative (Negative); Benzodiazepines Screen Urine Negative (Negative); Cocaine Screen Urine Negative (Negative); Opiate Screen Urine Negative (Negative); PCP Screen Urine Negative (Negative); THC Screen Urine Negative (Negative)
[2020-04-15] MEDS: valproic acid inj 500 MG in sodium chloride 0.9% 50 ML 55 MG IV (01:58)
[2020-04-15 02:09] VITALS: BP 136/106; PULSE 75; RESP 16; O2SAT 98
[2020-04-15] MEDS: ketorolac 30 mg/mL INJ 10 MG IVP (02:21)
[2020-04-15] MEDS: aspirin 325 mg Tablet PO (02:21)
[2020-04-15 03:00] LABS: Troponin 5 2HR Delta 0 ABS# (0-10)
[2020-04-15 03:36] VITALS: BP 105/77; PULSE 64; RESP 16; O2SAT 95
--- NOTE | 2020-04-17 15:45 | DCPLANNER ---
senior catering sales manager had message to schedule a follow up appointment for patient with Dr. Cruz. senior catering sales manager called the office of Dr. Cruz, spoke with Karon. A follow up appointment is scheduled for Thursday, May 02, 2020 at 12:[address] Cruz. Clinic will call patient with appointment information.
--- NOTE | 2020-05-16 12:54 | DCPLANNER ---
Patient did attend appointment scheduled for 05.02.[address] Butcher office.
== END 2020-04-15 03:37 | disposition home or self-care (01) ==
PROVIDERS: Emergency Provider Emergency Medicine; PCP Nurse Practitioner
DX: I63.9 Cerebral infarction, unspecified (principal); G43.919 Migraine, unspecified, intractable, without status migrainosus; F17.210 Nicotine dependence, cigarettes, uncomplicated
CPT/HCPCS: 12345; 70450; 70496; 70498; 71045; 80053; 80306; 80307; 81001; 83735; 84484; 85025; 85610; 85730; 93005; 96365; 96375; 99283; 99284; J0131; J1885; J2765; Q9967

== ENCOUNTER → 2020-05-02 11:25 | Outpatient (BNVA) | payer SELFPAY | PROVIDERS: PCP Nurse Practitioner; Visit Provider Specialist | DX: G43.711 Chronic migraine without aura, intractable, with status migrainosus (principal); R20.0 Anesthesia of skin; Z86.73 Personal history of transient ischemic attack (TIA), and cerebral infarction without residual deficits | CPT/HCPCS: 96372; 99204 ==

== ENCOUNTER → 2020-05-28 14:45 | Outpatient (BNVA) | payer SELFPAY | PROVIDERS: PCP Nurse Practitioner; Visit Provider Nurse Practitioner | DX: K92.1 Melena (principal); G43.919 Migraine, unspecified, intractable, without status migrainosus | CPT/HCPCS: 85025 ==

== ENCOUNTER 2020-06-19 06:54 | Day surgery (SDC) | payer SELFPAY ==
[2020-06-18 09:58] VITALS: BMI 27.4
[2020-06-19 07:09] VITALS: BP 147/101; PULSE 70; RESP 18; TEMP 36.6; O2SAT 96
--- NOTE | 2020-06-19 07:19 | W.PM.OPSUD ---
Surgery/Procedure H&P Update DATE OF PROCEDURE: June 19, 2020 DATE H&P PERFORMED: 07/06/20 H&P UPDATE INFORMATION: I have reviewed H&P completed within last 30 days, I have examined patient prior to procedure and No changes to prior documentation PREOP DIAGNOSIS: constipation PLANNED PROCEDURE: Operation Date: 06/19/20 08:00 Proposed Procedures p Colonoscopy 02390 K92.1(Not Applicable) - Daquan Storm MD
--- NOTE | 2020-06-19 07:20 | P.ANESASSM_ITS ---
Pre-Anesthetic Assessment Pre-Anesthetic Assessment: Height/Weight: Height 1.75 m Weight 84.368 kg Temp Pulse Resp BP Pulse Ox 97.8 F 70 18 147/101 96 06/19/20 07:09 06/19/20 07:09 06/19/20 07:09 06/19/20 07:09 06/19/20 07:09 Preop Diagnosis: constipation Proposed Procedure: Operation Date: 06/19/20 08:00 Proposed Procedures p Colonoscopy 00605 K92.1(Not Applicable) - Daquan Storm MD Was Beta Paramjit taken within 24 hours: Yes Last intake: Intake Last Liquid Date 06/18/20 Last Liquid Time 22:00 Last Solid Date 06/18/20 Last Solid Time 22:00 Last Intake: 00:00 Social: Social History: Tobacco and No alcohol Packs per day: 1.5 Pack years: 20 Exam: Pre-Anes Outpt Exam: alert and oriented x 3 Airway: Submandibular: WNL Cervical ROM: WNL MP: 1 Dentition: Other (upper denture ) Pulmonary: Pulmonary: COPD (inhaler as needed ) CV/HEM: CV/HEM: Arrythmia and HTN : : None reported Hepatic: Hepatic: None reported GI: GI: None reported Metabolic: Metabolic: None reported Musc/skel: Musc/skel: OA/DJD (back and neck) Neuropsych: Neuropsych: Anxiety, CVA (April 2020 symptoms resolved) and Depression Anesthetic Plan: ASA status: 3 Anesthesia: Anesthesia Evaluation and MAC PFSH Anesthesia PFSH: Medical History Anxiety and depression DDD (degenerative disc disease), lumbar Essential (primary) hypertension Migraines Surgical History History of section one time History of hysterectomy History of laparoscopy For adhesion History of tubal ligation Family History Other Arthritis CAD (coronary artery disease) Cancer Diabetes Hypertension Stroke Denies family history of Anesthesia complication Bleeding disorder Social History Smoking and tobacco status: current every day smoker cigarettes Packs smoked per day: 1.5 Second hand smoke exposure: Yes Smoking risk assessment/counseling performed?: Yes Alcohol intake: current Alcohol intake frequency: holidays/special occasions only Desire information about alcohol rehabilitation?: No Counseling given: No Desire information about substance/drug rehabilitation?: No Counseling given: No Adopted: No Caregiver/support person: No Lives independently: Yes Household members: none Housing: House Marital status: Single Number of children: 3 service: No Current occupational status: employed Current occupation: [employer] History of recent travel: Yes (travels from [facility]) Current gender identity: Female Data Anesthesia Cardiac Studies: No Data to Display
[2020-06-19] MEDS: sodium chloride 0.9% 1,000 ML 30 ML IV (07:23)
--- NOTE | 2020-06-19 07:47 | SUR.OPER ---
2mL ink injected into sigmoid mass bx site
[2020-06-19 07:54] VITALS: BP 144/96; PULSE 71; RESP 16; TEMP 36.3; O2SAT 97
--- NOTE | 2020-06-19 07:55 | ANE.PACU2 ---
Inpatient post-anesthesia follow up: Airway intact: Yes Vital signs: Temperature 97.8 F Pulse Rate 70 Respiratory Rate 18 Blood Pressure 147/101 Pulse Oximetry 96 Oxygen Delivery Me thod Room Air Oxygen Flow Rate Fraction of Inspir ed Oxygen Hydration adequate: Yes Nausea and vomiting: No Pain level: 1 Mental status: Baseline
[2020-06-19 08:27] VITALS: BP 161/110; PULSE 67; RESP 18; O2SAT 97
--- NOTE | 2020-06-19 08:31 | CT_ITS ---
WS: [id number] CT ABDOMEN AND PELVIS WITH CONTRAST HISTORY: sigmoid colon mass TECHNIQUE: Imaging performed of the abdomen and pelvis with IV contrast. Single phase imaging of the abdomen. Coronal and sagittal reformats are submitted. All CT scans at [facility] use at least one of these dose optimization techniques: automated exposure control; mA and/or kV adjustment per patient size (includes targeted exams where dose is matched to clinical indication); or iterativ e reconstruction. IV CONTRAST: Omnipaque 300; 95 mL IV. Oral contrast: Yes. DLP: 1197.44 mGy.cm COMPARISON: 01/06/2020 Lower thorax: Lung bases are clear. Heart is normal size. No hiatal hernia. Liver/biliary system: Normal size liver. Mild hepatic steatosis along the falciform ligament. No bile duct dilatation. Gallbladder: Mild contraction of the gallbladder. Pancreas: Normal. Spleen: Normal. Adrenal glands: Normal. Right kidney: Normal. Left kidney: Normal. Aorta: Normal. Lymphadenopathy: None. Free fluid: None. GI tract: Majority of the oral contrast remains within the stomach and proximal small bowel. Delayed opacification is probably due to increased fluid and air within the colon and distal small bowel. Nor mal appendix. Soft tissue circumferential mass involving the sigmoid extends over length of 4.4 cm. L EFT lateral sigmoid wall measures up to 1.4 cm. Minimal adjacent fat stranding. No adenopathy or flui d. Abdominal wall: Unremarkable abdominal wall. No hernia. Pelvis: Normally distended urinary bladder. No free fluid. Prior hysterectomy. Bones: Unremarkable. CT/CT abdomen pelvis w con* [id number] IMPRESSION: 1. Short segment circumferential sigmoid mass or postinflammatory change. Stri cture extends over length of 4.4 cm with maximum mucosal thickening of 1.4 cm. This could be a neoplastic stricture or postinflammatory stricture. No adjacent lymph nodes. Biopsy recommended. 2. No ascites. 3. Normal appendix. 4. Prior hysterectomy.
--- NOTE | 2020-06-19 09:15 | PC.NURSE ---
0850-Brought patient to OPS to drink CT contrast, and to wait for CT. 904- Pt started drinking contrast. 924- Pt completed drinking contrast. CT notified
[2020-06-19 09:33] LABS: Carcinoembryonic Antigen 3.1 ng/mL (0.0-4.7)
[2020-06-19] MEDS: iohexol 300 mg/mL 100 mL Btl IV (11:43)
[2020-06-19] MEDS: iohexol 300 mg/mL 50 mL Btl PO (11:43)
[2020-09-18 11:54] VITALS: BMI 26.9
== END 2020-06-19 12:00 | disposition home or self-care (01) ==
PROVIDERS: PCP Nurse Practitioner; Visit Provider Surgery
PROC: 0DJD8ZZ Inspection of Lower Intestinal Tract, Via Natural or Artificial Opening Endoscopic (ICD-10-PCS; CPT 45330; principal; 2020-06-19 08:00)
DX: K59.00 Constipation, unspecified (principal); C18.7 Malignant neoplasm of sigmoid colon; J44.9 Chronic obstructive pulmonary disease, unspecified; F17.210 Nicotine dependence, cigarettes, uncomplicated; I10 Essential (primary) hypertension; M19.90 Unspecified osteoarthritis, unspecified site; Z86.73 Personal history of transient ischemic attack (TIA), and cerebral infarction without residual deficits; F32.9 Major depressive disorder, single episode, unspecified; Z82.49 Family history of ischemic heart disease and other diseases of the circulatory system; Z83.3 Family history of diabetes mellitus
CPT/HCPCS: 12345; 45331; 74177; 82378; 88305; J2704; J7030

== ENCOUNTER 2020-06-21 19:55 | Inpatient (IN) | payer SELFPAY ==
[2020-06-20 15:52] VITALS: BMI 27.1
[2020-06-21] VITALS (15 sets, daily range): BP systolic 108–140; BP diastolic 69–88; PULSE 60–75; RESP 12–31; TEMP 35.6–36.6; O2SAT 93–100
[2020-06-21] MEDS: sodium chloride 0.9% 1,000 ML 30 ML IV (13:11)
--- NOTE | 2020-06-21 13:57 | ANES.PREANE2 ---
Pre-Anesthetic Assessment Pre-Anesthetic Assessment: Height/Weight: Height 1.75 m Weight 83.461 kg Preop Diagnosis: Sigmoid cancer Proposed Procedure: Operation Date: 06/21/20 14:15 Proposed Procedures p Laparoscopic Sigmoidectomy(Not Applicable) - Daquan Storm MD Last intake: Intake Last Liquid Date 06/21/20 Last Liquid Time 07:00 Last Solid Date 06/20/20 Last Solid Time 17:00 Social: Social History: Alcohol (occ) and Tobacco Exam: Pre-Anes Outpt Exam: alert, oriented x 3, clear to auscultation bilaterally and regular rate & rhythm Airway: Submandibular: WNL Cervical ROM: WNL MP: 2 Dentition: Partials (upper) and Other (very poor dentation) History/ROS: No significant history except as noted Pulmonary: Pulmonary: COPD and FUNG CV/HEM: CV/HEM: HTN : : None reported Hepatic: Hepatic: None reported GI: GI: None reported Metabolic: Metabolic: None reported Musc/skel: Musc/skel: OA/DJD Neuropsych: Neuropsych: Anxiety and Depression Anesthetic Plan: ASA status: 3 Anesthesia: Anesthesia Evaluation and General Risk of > 500 ml blood loss (7ml/kg in children): Yes, adequate IV access and fluids planned Meds/Allergies Current Medications: Current Medications Generic Name Dose Route Start Last Admin Trade Name Freq PRN Reason Stop Dose Admin Sodium Chloride 1,000 mls @ 30 ml s/hr 06/21/20 08:30 06/21/20 13:11 Sodium Chloride 0.9% IV 06/22/20 08:29 30 mls/hr .Q24H STEPHEN Administration PFSH Anesthesia PFSH: Medical History Anxiety and depression DDD (degenerative disc disease), lumbar Essential (primary) hypertension Migraines Surgical History History of section one time History of hysterectomy History of laparoscopy For adhesion History of tubal ligation Family History Other Arthritis CAD (coronary artery disease) Cancer Diabetes Hypertension Stroke Denies family history of Anesthesia complication Bleeding disorder Social History Smoking and tobacco status: current every day smoker cigarettes Packs smoked per day: 1.5 Second hand smoke exposure: Yes Smoking risk assessment/counseling performed?: Yes Alcohol intake: current Alcohol intake frequency: holidays/special occasions only Desire information about alcohol rehabilitation?: No Counseling given: No Desire information about substance/drug rehabilitation?: No Counseling given: No Adopted: No Caregiver/support person: No Lives independently: Yes Household members: none Housing: House Marital status: Single Number of children: 3 service: No Current occupational status: employed Current occupation: [employer] History of recent travel: Yes (travels from [facility]) Current gender identity: Female Data Anesthesia Cardiac Studies: No Data to Display
[2020-06-21] MEDS: metroNIDAZOLE IV 500 MG/100 ML PREMIX 100 MG IV (16:45)
--- NOTE | 2020-06-21 19:27 | SUR.OPER ---
daughter was called via cell phone and given update on procedure
--- NOTE | 2020-06-21 20:34 | PM.OP ---
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 No evidence of carcinomatosis or liver lesions Procedure Done: Laparoscopic sigmoid colectomy with 29 mm EEA anastomosis Laparoscopic takedown of splenic flexure Proctoscopy Specimens removed/disposition: 1. Sigmoid colon, stitch on the proximal end 2. Proximal and distal donut from the EEA anastomosis Surgeon: Daquan Storm Anesthesia: General Estimated blood loss (mL): 50 IV fluids (mL): 1,400 Urine output (mL): 450 Condition: stable Disposition: PACU Procedure: The patient was taken to the operating room, intubated under general anesthesia after IV antibiotic had been administered. The patient was placed in modified lithotomy position with shoulder support and the Emmanuel catheter was placed. The rectum was irrigated with diluted Betadine using red rubber catheter. The abdomen and the perineum was prepped and draped in a sterile manner. Using a 15 blade, a midline infraumbilical incision was made and using open Villa technique the peritoneal cavity was entered, 10 mm port was placed and 15 mm of pneumoperitoneum was created. A 10 mm 30? scope was then introduced. 5 mm ports were placed in the left lower quadrant and in the right upper quadrant under direct visualization in the midclavicular line and and a 12 mm port was placed in the right lower quadrant. Examination of the colon revealed a a mass within the sigmoid colon which had been previously inked, no signs of liver lesions or peritoneal carcinomatosis. The patient was placed in steep Trendelenburg position and rotated to the right in order to place a small bowel loops in the right upper quadrant. The transverse colon was retracted superiorly. The junction between the descending colon and the sigmoid colon was identified and marked. The inferior mesenteric artery was identified near its takeoff, the peritoneum opened and dissection was carried posterior to the artery until the ureter was identified. A medial to lateral dissection of the sigmoid mesocolon was performed. There were adhesions of the sigmoid colon to the abdominal wall which were taken down. The line of Toldt was opened along the descending colon up to the splenic flexure and the avascular plane was entered to mobilize the descending colon medially. Splenocolic and frenulum colic ligaments were taken down. The anterior leaflet of the greater omentum was divided to enter the lesser sac it was carried to the splenic flexure resulting mobilization of the splenic flexure. The sigmoid mesocolon was divided using Endo YOON device down to the proximal rectum to ensure there was at least 5 cm distal margin. 3 loads of 45 mm blue load Endo YOON stapler was introduced through the right lower quadrant port to divide the rectum distally. At this point it appeared that the descending colon reached up to the rectum and the midline umbilical incision was extended up the pneumoperitoneum was released and a wound protector was placed and the divided sigmoid colon was exteriorized. A noncrushing bowel clamps were placed in the descending colon and an Autosuture pursestring was placed and the colon was divided and the specimen removed from the operating field. Serial anal dilators were used and it was decided to proceed with the 29 mm EEA stapler. The anvil of the EEA stapler was introduced into the descending colon and tied down. The descending colon was introduced into the peritoneal cavity and the pneumoperitoneum was recreated. The anus was digitally dilated and the EEA stapler was introduced through the anal canal and the trocar passed through the previously created staple line and attached to the anvil after ensuring that there was no twisting of the mesentery. The EEA stapler was fired to create the stapled 29 mm end-to-end anastomosis and 2 intact doughnuts were retrieved which were sent as proximal margin and distal margin. A colonoscope was introduced and passed beyond the anastomosis after submerging the anastomosis under saline in the pelvis. The air leak test was negative. There was no significant bleeding noted from the staple line. The colonoscope was withdrawn. 20 cc of saline mixed with 27.5% Marcaine mixed with 20 cc of Exparel was injected in the midclavicular line under laparoscopic visualization for a TAP block. all 4 ports were removed under direct visualization and the fascia the midline was closed using #1 loop PDS. The fascia of the right lower quadrant port was closed using [id number] 0 Vicryl suture. The subcutaneous tissue was approximated using 3-0 Vicryl suture and skin was closed using running subcuticular 4-0 Monocryl suture and surgical glue. The patient was subsequently extubated and transferred to recovery room with a Emmanuel catheter in place.
--- NOTE | 2020-06-21 20:44 | W.PM.OPSUD ---
Surgery/Procedure H&P Update DATE OF PROCEDURE: June 21, 2020 DATE H&P PERFORMED: 06/05/20 H&P UPDATE INFORMATION: I have reviewed H&P completed within last 30 days, I have examined patient prior to procedure and No changes to prior documentation PREOP DIAGNOSIS: Sigmoid cancer PLANNED PROCEDURE: Operation Date: 06/21/20 14:15 Proposed Procedures p Laparoscopic Sigmoidectomy(Not Applicable) - Daquan Storm MD
--- NOTE | 2020-06-21 20:52 | SUR.PHASEI ---
PT OPENS EYES TO TOUCH STIMULI ONLY, PT DOES NOT FOCUS ON SPEAKER, PT QUICKLY BACK TO SLEEP ORAL AIRWAY REMAINS IN PLACE, ABD SOFT WITH 4 SITES WITH DERMABOND D/I, MONZON TO DD WITH SMALL AMT YELLOW URINE TO TUBING AND BAG, SCDS ON BILAT LEGS. MONITOR SR NO ECTOPY. PT NOW ON RA. AND SATS REMAIN 100%
--- NOTE | 2020-06-21 21:46 | SUR.PHASEI ---
2130 PT TO FLOOR AWAKES EASILY TO VOICE PT MOVED TO BED WITH ASSIST OF 4 NURSES PT ALERT AND TALKATIVE WITH STAFF, IV PATENT ABD SOFT 4 SITES D/I MONZON PATENT TO DD. BP 123/77, HR 63, RESP 20 SATS ON 3LNC 95% PT ENCOURAGED TO COUGH AND DEEP BREATH, PT GIVEN PILLOW FOR ABD SUPPORT.AND PT MOVED UP IN BED HOB AT 30 DEGREES
--- NOTE | 2020-06-21 21:46 | PC.NURSE ---
pt resting in bed. Alert and oriented complaints of abd pain. Incisions to abd with durmabond no drainage or redness x3 stabs and midline incision. scd in place.
--- NOTE | 2020-06-21 21:56 | PC.NURSE ---
updated dtr at pt request seamus
[2020-06-21] MEDS: famotidine 20 mg/2 mL INJ IVP (22:00)
[2020-06-21] MEDS: D5-NS 0.45% + KCL 20 mEq 20 MEQ/1,000 ML BAG 100 MEQ IV (22:00)
[2020-06-22] VITALS (16 sets, daily range): BP systolic 106–154; BP diastolic 68–93; PULSE 50–98; RESP 16–20; TEMP 36.6–37.2; O2SAT 93–98
[2020-06-22] MEDS: metroNIDAZOLE IV 500 MG/100 ML PREMIX 100 MG IV ×2 (01:47→08:51)
[2020-06-22] MEDS: morphine 4 mg/mL SDV 1 mL 2 MG IVP ×2 (02:57→08:57)
[2020-06-22 04:15] LABS: Basophils % 0.1 %; Hematocrit 38.3 % (37.0-47.0); Hemoglobin 12.5 g/dL (11.5-15.3); Lymphocytes # 0.7 10^3/uL (0.8-4.8); Lymphocytes % 7.6 %; Mean Corpuscular HGB Conc 32.6 g/dL (30.0-36.0); Mean Corpuscular Hemoglobin 29.3 pg (28.0-34.0); Mean Corpuscular Volume 89.7 fL (81-99); Mean Platelet Volume 11.3 fL (7.4-10.4); Monocytes # 0.4 10^3/uL (0.2-0.9); Monocytes % 3.9 %; Neutrophils # 8.59 10^3/uL (1.8-7.7); Nucleated Red Blood Cells % 0 %; Platelet Count 243 10^3/cmm (130-400); Red Blood Count 4.27 10^6/uL (4.1-5.3); Red Cell Distribution Width 13.1 % (12.1-15.1); White Blood Count 9.8 10^3/uL (4.0-10.0)
[2020-06-22 04:39] LABS: Anion Gap 11.4 (5-19); Blood Urea Nitrogen 6 mg/dL (6-20); Calcium 8.7 mg/dL (8.5-10.5); Carbon Dioxide 24 mmol/L (22-29); Chloride 108 mmol/L (98-107); Glomerular Filtration Rate 89.7 mL/min (90-130); Glucose 173 mg/dL (65-115); Osmolality Calculated 288 mOsm/kg (285-295); Potassium 4.4 mmol/L (3.5-5.1); Sodium 139 mmol/L (136-145)
[2020-06-22] MEDS: HYDROcodone-acetaminophen 5-325 mg Tablet 1 TAB PO (05:51)
[2020-06-22] MEDS: famotidine 20 mg/2 mL INJ IVP ×2 (08:43→20:27)
[2020-06-22] MEDS: docusate sodium 100 mg Capsule PO ×2 (09:09→17:28)
[2020-06-22] MEDS: propranolol 20 mg Tablet 10 MG PO ×2 (09:10→17:28)
[2020-06-22] MEDS: venlafaxine ER (24HR) 150 mg Capsule PO (09:10)
[2020-06-22] MEDS: D5-NS 0.45% + KCL 20 mEq 20 MEQ/1,000 ML BAG 100 MEQ IV (09:17)
--- NOTE | 2020-06-22 12:39 | P.PN_ITS ---
Subjective Subjective: Interval history: Patient has been doing well denies any pain, nausea or vomiting Vitals/I&O/Wt Last Vital Signs Temp 98.1 F 06/22/20 11:30 Pulse 72 06/22/20 11:30 Resp 16 06/22/20 11:30 BP 114/74 06/22/20 11:30 Pulse Ox 95 06/22/20 11:30 06/21/20 06/22/20 06/22/20 22:59 06:59 14:59 Intake Total 155 / 345 190 / 345 1560 / 1560 Output Total 900 / 1575 675 / 1575 Balance -745 / -1230 -485 / -1230 1560 / 1560 Weight last 48 hrs Weight 184 lb Physical Exam Narrative: EXAM NARRATIVE: Abdomen: Soft, nontender, nondistended, incision clean dry and intact Urinary Catheter Management^: Emmanuel: Cath Placed During This Visit: yes, but has since been removed by the nurse Reason for Continuing Indwelling Catheter: Decision to DC Catheter Urinary Catheter Date of Insertion: 06/21/20 Urinary Catheter Time of Insertion: 16:45 Date Urinary Catheter Removed: 06/22/20 Time Urinary Catheter Discontinued: 07:00 Data : 06/23/20 04:18 06/23/20 04:18 A&P Assessment and plan (1) Status post laparoscopic-assisted sigmoidectomy: Status post sigmoid colectomy postop day 1 with postop ileus Start clear liquid diet DC Emmanuel Ambulate with PCT Lovenox for DVT prophylaxis Pepcid for GI prophylaxis Decrease IV fluids to 30 cc/h Patient will need greater than 2 nights of inpatient stay to ensure resolution of ileus Status: Acute Attestations Medical Necessity Statement*: Status post sigmoid colectomy requiring continued inpatient stay to ensure resolution of ileus Coding Level of Care Code Acute Event Security Officer for Chg Fwd Diagnoses Status post laparoscopic-assisted sigmoidectomy Z90.49
[2020-06-22] MEDS: acetaminophen 325 mg Tablet 650 MG PO (16:22)
[2020-06-22] MEDS: enoxaparin 40 mg/0.4 mL Syringe SUBCUT (17:28)
--- NOTE | 2020-06-22 18:43 | PC.RESP ---
SMOKING CESSATION SENT TO PATIENT.
[2020-06-22] MEDS: D5-NS 0.45% + KCL 20 mEq 20 MEQ/1,000 ML BAG 30 MEQ IV (20:26)
[2020-06-23] VITALS (9 sets, daily range): BP systolic 108–130; BP diastolic 57–83; PULSE 50–74; RESP 16–20; TEMP 36.4–36.9; O2SAT 94–97
[2020-06-23] MEDS: HYDROcodone-acetaminophen 5-325 mg Tablet 1 TAB PO ×2 (02:24→08:06)
[2020-06-23] MEDS: morphine 4 mg/mL SDV 1 mL 2 MG IVP (04:36)
[2020-06-23 04:43] LABS: Basophils % 0.2 %; Eosinophils # 0.1 10^3/uL (0.0-0.8); Eosinophils % 0.9 %; Hematocrit 33.6 % (37.0-47.0); Hemoglobin 11.1 g/dL (11.5-15.3); Lymphocytes % 29.3 %; Mean Corpuscular Hemoglobin 29.9 pg (28.0-34.0); Mean Corpuscular Volume 90.6 fL (81-99); Mean Platelet Volume 11.5 fL (7.4-10.4); Monocytes # 1.1 10^3/uL (0.2-0.9); Monocytes % 10.9 %; Neutrophils # 6.04 10^3/uL (1.8-7.7); Neutrophils % 58.4 %; Nucleated Red Blood Cells % 0 %; Platelet Count 221 10^3/cmm (130-400); Red Blood Count 3.71 10^6/uL (4.1-5.3); Red Cell Distribution Width 13.4 % (12.1-15.1); White Blood Count 10.3 10^3/uL (4.0-10.0)
[2020-06-23 05:11] LABS: Anion Gap 9.3 (5-19); Blood Urea Nitrogen 5 mg/dL (6-20); Calcium 8.6 mg/dL (8.5-10.5); Carbon Dioxide 27 mmol/L (22-29); Chloride 109 mmol/L (98-107); Glomerular Filtration Rate 89.7 mL/min (90-130); Glucose 106 mg/dL (65-115); Osmolality Calculated 288 mOsm/kg (285-295); Potassium 4.3 mmol/L (3.5-5.1); Sodium 141 mmol/L (136-145)
[2020-06-23] MEDS: famotidine 20 mg/2 mL INJ IVP ×2 (08:06→21:15)
[2020-06-23] MEDS: venlafaxine ER (24HR) 150 mg Capsule PO (08:07)
[2020-06-23] MEDS: docusate sodium 100 mg Capsule PO ×2 (08:07→17:02)
[2020-06-23] MEDS: propranolol 20 mg Tablet 10 MG PO ×2 (08:11→17:02)
--- NOTE | 2020-06-23 09:12 | P.PN_ITS ---
Subjective Subjective: Interval history: Patient doing well, passing flatus, no nausea or vomiting, no BM Medications: Reviewed: Yes Vitals/I&O/Wt Last Vital Signs Temp 97.5 F L 06/23/20 07:37 Pulse 60 06/23/20 09:01 Resp 16 06/23/20 09:01 BP 110/70 06/23/20 07:37 Pulse Ox 96 06/23/20 09:01 06/22/20 06/23/20 06/23/20 22:59 06:59 14:59 Intake Total 1720 / 3860 100 / 3860 Output Total 650 / 1170 520 / 1170 Balance 1070 / 2690 -420 / 2690 Physical Exam Narrative: EXAM NARRATIVE: Abdomen: Soft, nondistended, minimally tender, incision clean dry and intact Urinary Catheter Management^: Emmanuel: Cath Placed During This Visit: yes, but has since been removed by the nurse Reason for Continuing Indwelling Catheter: Decision to DC Catheter Urinary Catheter Date of Insertion: 06/21/20 Urinary Catheter Time of Insertion: 16:45 Date Urinary Catheter Removed: 06/22/20 Time Urinary Catheter Discontinued: 07:00 Data : 06/23/20 04:18 06/23/20 04:18 A&P Assessment and plan (1) Status post laparoscopic-assisted sigmoidectomy: Status post sigmoid colectomy postop day 2 with postop ileus Advance to full liquid diet Ambulate with PT Lovenox for DVT prophylaxis Pepcid for GI prophylaxis DC IV fluids Patient will need greater than 2 nights of inpatient stay to ensure resolution of ileus Status: Acute Attestations Medical Necessity Statement*: Status post sigmoid colectomy with postop ileus Coding Level of Care Code Acute Hospital Insurance Representative for Justine Fwomkar Diagnoses Status post laparoscopic-assisted sigmoidectomy Z90.49
[2020-06-23] MEDS: acetaminophen 325 mg Tablet 650 MG PO ×2 (13:12→22:14)
[2020-06-23] MEDS: enoxaparin 40 mg/0.4 mL Syringe SUBCUT (17:02)
[2020-06-24] VITALS: BP 115/72; PULSE 62; RESP 18; TEMP 36.7; O2SAT 93
[2020-06-24 05:05] LABS: Basophils % 0.4 %; Eosinophils # 0.3 10^3/uL (0.0-0.8); Eosinophils % 3.9 %; Hematocrit 34.5 % (37.0-47.0); Hemoglobin 11.3 g/dL (11.5-15.3); Lymphocytes # 2.9 10^3/uL (0.8-4.8); Lymphocytes % 37.3 %; Mean Corpuscular HGB Conc 32.8 g/dL (30.0-36.0); Mean Corpuscular Hemoglobin 29.1 pg (28.0-34.0); Mean Corpuscular Volume 88.9 fL (81-99); Mean Platelet Volume 11.6 fL (7.4-10.4); Monocytes # 0.9 10^3/uL (0.2-0.9); Monocytes % 12.3 %; Neutrophils # 3.51 10^3/uL (1.8-7.7); Neutrophils % 45.8 %; Nucleated Red Blood Cells % 0 %; Platelet Count 223 10^3/cmm (130-400); Red Blood Count 3.88 10^6/uL (4.1-5.3); Red Cell Distribution Width 13.1 % (12.1-15.1); White Blood Count 7.7 10^3/uL (4.0-10.0)
[2020-06-24 05:27] LABS: Anion Gap 8.3 (5-19); Blood Urea Nitrogen 5 mg/dL (6-20); Calcium 9.2 mg/dL (8.5-10.5); Carbon Dioxide 28 mmol/L (22-29); Chloride 106 mmol/L (98-107); Glomerular Filtration Rate 76.9 mL/min (90-130); Glucose 94 mg/dL (65-115); Osmolality Calculated 281 mOsm/kg (285-295); Potassium 4.3 mmol/L (3.5-5.1); Sodium 138 mmol/L (136-145)
[2020-06-24] MEDS: acetaminophen 325 mg Tablet 650 MG PO (06:02)
[2020-06-24 06:04] VITALS: BP 145/88; PULSE 64; RESP 18; TEMP 36.8; O2SAT 95
[2020-06-24 08:00] VITALS: BP 146/84; PULSE 82; RESP 18; TEMP 36.5
[2020-06-24] MEDS: famotidine 20 mg/2 mL INJ IVP (08:51)
[2020-06-24] MEDS: docusate sodium 100 mg Capsule PO (08:51)
[2020-06-24] MEDS: propranolol 20 mg Tablet 10 MG PO (08:51)
[2020-06-24] MEDS: venlafaxine ER (24HR) 150 mg Capsule PO (08:51)
--- NOTE | 2020-06-24 09:47 | P.PN_ITS ---
Subjective Subjective: Interval history: Patient denies any abdominal pain, taking Tylenol for pain control, passing flatus, no BM, no nausea or vomiting, tolerating full liquid diet Vitals/I&O/Wt Last Vital Signs Temp 97.7 F 06/24/20 08:00 Pulse 82 06/24/20 08:00 Resp 18 06/24/20 08:00 BP 146/84 06/24/20 08:00 Pulse Ox 95 06/24/20 06:04 06/23/20 06/24/20 06/24/20 22:59 06:59 14:59 Intake Total 600 / 2240 1000 / 2240 Output Total 1450 / 3350 900 / 3350 Balance -850 / -1110 100 / -1110 Physical Exam Narrative: EXAM NARRATIVE: Abdomen: Soft, nondistended, nontender, incision clean dry and intact Urinary Catheter Management^: Emmanuel: Cath Placed During This Visit: yes, but has since been removed by the nurse Reason for Continuing Indwelling Catheter: Decision to DC Catheter Urinary Catheter Date of Insertion: 06/21/20 Urinary Catheter Time of Insertion: 16:45 Date Urinary Catheter Removed: 06/22/20 Time Urinary Catheter Discontinued: 07:00 Data : 06/24/20 04:47 06/24/20 04:47 A&P Assessment and plan (1) Status post laparoscopic-assisted sigmoidectomy: Doing well, DC home today Status: Acute Attestations Medical Necessity Statement*: DC home today Coding Level of Care Code Acute Electric Locomotive Firer/Fireman for Chg Fwd Diagnoses Status post laparoscopic-assisted sigmoidectomy Z90.49
--- NOTE | 2020-06-24 09:48 | PM.DCS ---
Discharge Providers Date of Admission: 06/21/20 19:55 Date of Discharge: June 24, 2020 Attending Provider at Admission: Daquan Storm MD Attending Provider at Discharge: Daquan Storm MD Primary Care Provider: FLORI Peng Diagnoses at Discharge Discharge Diagnosis (1) Status post laparoscopic-assisted sigmoidectomy: Status: Acute Reason for Visit Reason for Visit: colon stricture Hospital Course Hospital Course: The patient was admitted to the hospital after she underwent laparoscopic sigmoid colectomy for colon cancer. By postop day 2 she was passing flatus, she denies any nausea vomiting and she is tolerating a liquid diet. Her vital signs are stable and her lab work is normal Physical Exam Narrative: EXAM NARRATIVE: Abdomen: Soft, nontender nondistended incisions healing well Urinary Catheter Management^: Emmanuel: Cath Placed During This Visit: yes, but has since been removed by the nurse Reason for Continuing Indwelling Catheter: Decision to DC Catheter Urinary Catheter Date of Insertion: 06/21/20 Urinary Catheter Time of Insertion: 16:45 Date Urinary Catheter Removed: 06/22/20 Time Urinary Catheter Discontinued: 07:00 Discharge Data Data Completed and Pending: Pending at discharge Category Date Time Status Pathology: Surgic al [PTH] Routine Pth 06/21/20 20:52 Received Labs from last 24 hours 06/24/20 06/24/20 04:47 04:47 WBC 7.7 RBC 3.88 L Hgb 11.3 L Hct 34.5 L MCV 88.9 MCH 29.1 MCHC 32.8 RDW 13.1 Plt Count 223 MPV 11.6 H Neut % (Auto) 45.8 Lymph % (Auto) 37.3 [place] % (Auto) 12.3 Eos % (Auto) 3.9 Baso % (Auto) 0.4 Neut # (Auto) 3.51 Lymph # (Auto) 2.9 [place] # (Auto) 0.9 Eos # (Auto) 0.3 Baso # (Auto) 0.0 Nucleated RBC % (a uto) 0 Nucleated RBCs # 0.0 Sodium 138 Potassium 4.3 Chloride 106 Carbon Dioxide 28 Anion Gap 8.3 BUN 5 L Creatinine 0.8 GFR Calculation 76.9 L Glucose 94 Calculated Osmolal ity 281 L Calcium 9.2 Vitals: Last Vital Signs Temp 97.7 F 06/24/20 08:00 Pulse 82 06/24/20 08:00 Resp 18 06/24/20 08:00 BP 146/84 06/24/20 08:00 Pulse Ox 95 06/24/20 06:04 Discharge Plan Discharge Patient Disposition: Home Condition: Stable Prescriptions: [place] 5-325 mg tablet 1 tab PO Q6H 7 Days Qty: 20 RF: 0 sennosides-docusate sodium [Senna-S] 8.6-50 mg tablet 1 tab-cap PO BID Qty: 30 RF: 0 Continued propranolol 10 mg tablet 10 mg PO BID Qty: 60 RF: 2 venlafaxine [Effexor XR] 150 mg capsule,extended release 24hr 150 mg PO DAILY Qty: 30 RF: 4 Discontinued erythromycin 250 mg tablet 250 mg PO .COMPLEX Qty: 6 RF: 0 neomycin 500 mg tablet 1 gm PO .COMPLEX Qty: 6 RF: 0 Discharge Orders: Discharge Order (Routine); Ordered 06/24/20 Ordered By: Daquan Storm Referrals: Daquan Storm MD [Physician] - 2 weeks Discharge Diet: Advance as tolerated Activity Restrictions/Additional Instructions: 1. Up and walking as tolerated. 2. Ok to shower in 48 hours after surgery. 3. Remove Dermabond dressing in 7-10 days. 4. Do not lift more than 10 pounds. 5. Do not operate heavy machinery or drive while using pain medications. 6. Advised to return to ER or contact my office if there are any signs of infection like, increasing pain, fevers, chills, redness or drainage of pus. 7. Stay on 4-5 small meals a day, continue on full liquid diet and advance to soft diet once you start having bowel movements. Limit high-fiber diets Discharge Attestations Time Spent in Discharge Care*: less than 30 min Quality Metrics Clinical Quality Measures During this hospital stay, did patient experience: None Coding Level of Care Code Acute Circular Shear Operator for Chg Fwd Diagnoses Status post laparoscopic-assisted sigmoidectomy Z90.49
[2020-06-24 10:04] VITALS: BP 146/84; PULSE 82; RESP 18; TEMP 36.5
[2020-06-24] MEDS: HYDROcodone-acetaminophen 5-325 mg Tablet 1 TAB PO (10:09)
== END 2020-06-24 11:44 | disposition home or self-care (01) | DRG 331 ==
LOC: MEDSURG 06-22 14:46
PROVIDERS: Admitting Provider Surgery; PCP Nurse Practitioner; Visit Provider Surgery
PROC: 0DTN4ZZ Resection of Sigmoid Colon, Percutaneous Endoscopic Approach (ICD-10-PCS; CPT 44204; principal; 2020-06-21 14:15)
PROC: 0DJD8ZZ Inspection of Lower Intestinal Tract, Via Natural or Artificial Opening Endoscopic (ICD-10-PCS; CPT 45378; 2020-06-21 14:15)
DX: C18.7 Malignant neoplasm of sigmoid colon (principal); F41.8 Other specified anxiety disorders; M51.36 Other intervertebral disc degeneration, lumbar region; I10 Essential (primary) hypertension; F17.210 Nicotine dependence, cigarettes, uncomplicated
CPT/HCPCS: 12345; 36415; 51702; 80048; 85025; 88309; 94664; 96372; 96375; 97116; 97161; C9290; J0131; J0690; J1100; J1650; J2270; J2405; J2704; J2710; J3010; J3490; J7030; S0030

== ENCOUNTER → 2020-07-02 08:53 | Outpatient (BNVA) | payer SELFPAY | PROVIDERS: PCP Nurse Practitioner; Visit Provider Nurse Practitioner | DX: R35.0 Frequency of micturition (principal) | CPT/HCPCS: 81000 ==

== ENCOUNTER 2020-07-18 09:10 | Outpatient (CLI) | payer SELFPAY ==
--- NOTE | 2020-07-18 16:25 | ONC CON_ITS ---
Dr. Patel New Patient Note Patient: Oxana Rock Unit #: [id number]: [id number] Dicatated By: Jh Patel M.D.Date of Visit: Jul 18, 2020 Onc MED New Patient/Consult Referring Physician: Dr. CINDY ROGEL M.D. History of Present Illness: Ms. Oxana Rock, is a 45-year-old female with history of bleeding per rectum recently underwent colonoscopy found to have near obstructive lesion in the sigmoid colon, biopsy confirmed adenocarcinoma, CT scan of abdomen pelvis done on June 19, 2020 showed circumferential sigmoid mass or postinflammatory changes no adjacent lymph nodes normal size liver with no abnormality., Subsequently on June 21, 2020 underwent laparoscopic sigmoid colectomy with end-to-end anastomosis and final pathology report came back moderately differentiated adenocarcinoma, tumor invades through muscularis propria into the iza-colorectal tissue, all margins negative with lymphovascular invasion seen in small vessel intramural, 14 lymph nodes were examined showed no evidence of metastatic disease e.g. pT3N0 Patient tolerated procedure well now recovering well. No nausea or vomiting no diarrhea constipation, no jaundice, no abdominal pain as per patient her hemoglobin was normal prior to the procedure but complaining of generalized weakness and fatigue. Patient smoke about 2 packs a day for the last 30 years, consume alcohol occasionally. Family history as per patient grandmother had either colon cancer or stomach cancer, was diagnosed at 60-year plus age. Patient has 3 daughters age 27, 25.22 healthy. Past Medical History: Ms. Rock's medical history consists of anxiety, degenerative disease of the spine, depression, hypertension, and migraine headaches. Past Surgical History: Ms. Rock's surgical/procedural history consists of caesarean section, hysterectomy, sigmoidectomy, and tubal ligation. Medications: Acetaminophen 2 Tablet (of 500 mg) Oral b.i.d. PRN, Albuterol Sulfate 1 Puff(s) (of 108 (90 base) mcg/act) Aerosol Powder, Breath Activated Inhalation four times a day PRN, Propranolol HCl 1 Tablet (of 10 mg) Oral b.i.d., Stool Softener 1 CA 125 Units/mL (of 50 mg) Capsule Oral b.i.d. PRN, Venlafaxine HCl ER 1 Capsule (of 150 mg) Capsule SR 24 HR Oral daily Allergies: Ibuprofen Social History: Ms. Rock is and she is an unknown. She is a daily smoker who smokes 2.0 packs/day. She has no history of drinking. She has indicated exposure to the following products: cigarettes. Family History: Ms. Rock's mother is alive: hypertension, and heart disease. Ms. Rock's father at age 57: cirrohsis, and heart disease, and hypertension, and diabetes. Ms. Rock has 1 sister who is alive. grandmother had colon cancer,. Review Of Symptoms: Review of Systems is not available for this patient. Vital Signs: Performed on Jul 18, 2020 10:25: 0, 26.73, 1.98 sq.m, 69.00 in, 98 %, 66 /min, 20 /min, 131/86 mm(hg), 98.4 F, and 181.0 lbs (HIGH). Performance Status: 0 - Fully active, able to carry on all predisease activities without restrictions. (ECOG) Physical Examination: ENMT - No mouth sores, no thrush, no jaundice, Respiratory - Lungs are clear, Cardiovascular - Regular rate and rhythm of heart, Abdomen - Soft, bowel sounds present, Extremities - No visible edema. Lab/Imaging: Most recent lab results are not available for this patient. Impression: Moderately differentiated adenocarcinoma involving sigmoid colon status post laparoscopic sigmoid colectomy with end-to-end anastomosis done on June 21, 2020, final pathology report showed moderately differentiated adenocarcinoma, tumor invades through muscularis propria into the iza-colorectal tissue, with clear surgical margins but lymphovascular invasion seen, 14 lymph nodes were examined showed no evidence of metastatic disease ,pT3,N0 stage II (with high risk features like near obstructive lesion at the presentation and with lymphovascular invasion.) Plan: Discussed with patient regarding her disease status and further treatment options, patient has stage II disease with high-risk features like near obstructive lesion at the time of presentation as well as lymphovascular invasion seen in final pathology report, as far as, role of adjuvant chemotherapy is concerned, there is no consensus but patient with a high risk stage II disease, usually recommended clinical trials or adjuvant chemotherapy. We will also check her MSI MMR status,If it shows normal expression,, considering her young age and excellent performance status, would recommend adjuvant chemotherapy, again knowing that there is no clear-cut consensus but being stage II with a high risk feature as mentioned above, she may benefit. On the other hand if MSI/MMR status shows deficiency/unstable, then we may offer her observation as literature has shown patient with stage II disease with MMR D/MSI usually carry better prognosis. And also recommend genetic counseling. But patient opted for evaluation at tertiary care center for clinical trial as well as second opinion, in that case we will refer her to GI oncology clinic at [facility] for evaluation and she will return to clinic in 1 week after her visit to [place] Signed By: Jh Patel M.D. <<Signature on File>>
[2020-08-09 12:42] LABS: Miscellaneous Test See Scanned Lab Rpt
== END 2020-07-18 09:11 | disposition home or self-care (01) ==
LOC: ONCMED 09:16
PROVIDERS: PCP Nurse Practitioner; Referring Provider Surgery; Visit Provider Internal Medicine Hematology & Oncology
DX: C18.7 Malignant neoplasm of sigmoid colon (principal); F41.9 Anxiety disorder, unspecified; F32.9 Major depressive disorder, single episode, unspecified; M47.9 Spondylosis, unspecified; I10 Essential (primary) hypertension; G43.909 Migraine, unspecified, not intractable, without status migrainosus
CPT/HCPCS: 81301; 88360; 99203

== ENCOUNTER 2020-08-21 10:01 | Outpatient (CLI) | payer SELFPAY ==
--- NOTE | 2020-08-21 11:00 | US_ITS ---
WS: [id number] ABDOMINAL ULTRASOUND LIMITED REASON FOR VISIT: right upper quadrant pain TECHNIQUE: Grayscale and Doppler ultrasound examination of the abdomen. FINDINGS: Pancreas: Visualized portions of the pancreas are unremarkable. Abdominal aorta and IVC are within normal limits. Liver: Liver measures 14.8 cm in length. Normal echotexture and no focal lesion. Gallbladder: Gallbladder wall thickness measures 0.3 mm. No calculi or signs of mural or iza cholecy stic inflammation. No bile duct dilatation identified. Right kidney: Right kidney measures 9.4 cm x 4 .8 cm x 5.5 cm. Right kidney cortex measures 1.4 cm. No mass, hydronephrosis, or calculus. US/US gall bladder 51199 IMPRESSION: No acute abnormality identified.
== END 2020-08-21 10:02 | disposition home or self-care (01) ==
LOC: US 10:05
PROVIDERS: PCP Nurse Practitioner; Visit Provider Surgery
DX: R10.11 Right upper quadrant pain (principal)
CPT/HCPCS: 76705

== ENCOUNTER 2020-09-06 08:56 | Outpatient (CLI) | payer SELFPAY ==
--- NOTE | 2020-09-06 10:00 | NM_ITS ---
WS: [id number] NUCLEAR MEDICINE HIDA SCAN CLINICAL INFORMATION: chronic abdominal pain TECHNIQUE: Following intravenous administration of mCi of technetium 99m mebrofenin, images of the ab domen were obtained over the course of 60 minutes. Next, gallbladder ejection fraction was determined by obtaining preprandial and one-hour postprandial images of the gallbladder following oral ingestio n of Ensure. COMPARISON: and ultrasound August 21, 2020 FINDINGS: Normal hepatic uptake at 5 minutes. Normal activity in the common bile duct. Gallbladder is visualize d by 20 minutes. Normal small bowel activity. No evidence of acute cholecystitis or choledocholithias is. Gallbladder ejection fraction 65% within normal limits. No evidence of chronic cholecystitis. NM/NM hepatobiliary w phar* [id number] IMPRESSION: 1. No evidence of acute or chronic cholecystitis. 2. Gallbladder ejection fraction 65% within normal limits.
== END 2020-09-06 08:57 | disposition home or self-care (01) ==
LOC: NM 08:58
PROVIDERS: PCP Nurse Practitioner; Visit Provider Surgery
DX: R10.9 Unspecified abdominal pain (principal); G89.29 Other chronic pain
CPT/HCPCS: 78227; A9537

== ENCOUNTER → 2020-09-15 10:41 | Outpatient (BNVA) | payer OTHER, SELFPAY | PROVIDERS: PCP Nurse Practitioner; Visit Provider Surgery | DX: Z11.59 Encounter for screening for other viral diseases (principal) | CPT/HCPCS: 87635 ==

== ENCOUNTER 2020-09-19 06:50 | Day surgery (SDC) | payer SELFPAY ==
[2020-09-19] VITALS (11 sets, daily range): BP systolic 141–172; BP diastolic 85–99; PULSE 60–87; RESP 16–24; TEMP 36.4–36.9; O2SAT 92–100; BMI 26.6
[2020-09-19] MEDS: sodium chloride 0.9% 1,000 ML 30 ML IV (07:14)
--- NOTE | 2020-09-19 07:16 | ANES.PREANE2 ---
Pre-Anesthetic Assessment Pre-Anesthetic Assessment: Height/Weight: Height 1.75 m Weight 81.647 kg Temp Pulse Resp BP Pulse Ox 97.9 F 80 18 151/86 98 09/19/20 07:03 09/19/20 07:03 09/19/20 07:03 09/19/20 07:03 09/19/20 07:03 Preop Diagnosis: Chronic cholecystitis Proposed Procedure: Operation Date: 09/19/20 08:30 Proposed Procedures p Laparoscopic poss Open Cholecystectomy 79057 K82.9(Not Applicable) - Daquan Storm MD Familial anesthetic complications: None Was Beta Paramjit taken within 24 hours: Yes Last intake: Intake Last Liquid Date 09/19/20 Last Liquid Time 00:00 Last Solid Date 09/18/20 Last Solid Time 18:00 Social: Social History: Tobacco and No alcohol Exam: Pre-Anes Outpt Exam: alert, oriented x 3, clear to auscultation bilaterally and regular rate & rhythm Airway: Cervical ROM: WNL MP: 2 Dentition: Partials Pulmonary: Pulmonary: COPD CV/HEM: CV/HEM: Murmur (since ) Neuropsych: Neuropsych: CVA (? Was very hypertensive and became numb on left side (april 14) - back to normal (scans were negative however)) Anesthetic Plan: ASA status: 2 Anesthesia: General Risk of > 500 ml blood loss (7ml/kg in children): No Meds/Allergies Current Medications: Current Medications Generic Name Dose Route Start Last Admin Trade Name Freq PRN Reason Stop Dose Admin Sodium Chloride 1,000 mls @ 30 ml s/hr 09/19/20 07:00 09/19/20 07:14 Sodium Chloride 0.9% IV 09/20/20 06:59 30 mls/hr .Q24H STEPHEN Administration PFSH Anesthesia PFSH: Medical History Anxiety and depression Cancer of sigmoid colon [id number] DDD (degenerative disc disease), lumbar Essential (primary) hypertension Migraines Surgical History History of section one time History of hysterectomy History of laparoscopy For adhesion History of tubal ligation Status post colonoscopy (06/19/20) Status post laparoscopic-assisted sigmoidectomy (06/21/20) Family History Other Arthritis CAD (coronary artery disease) Cancer Diabetes Hypertension Stroke Denies family history of Anesthesia complication Bleeding disorder Social History Smoking and tobacco status: current every day smoker cigarettes Packs smoked per day: 1.5 Second hand smoke exposure: Yes Smoking risk assessment/counseling performed?: Yes Alcohol intake: current Alcohol intake frequency: holidays/special occasions only Desire information about alcohol rehabilitation?: No Counseling given: No Desire information about substance/drug rehabilitation?: No Counseling given: No Adopted: No Caregiver/support person: No Lives independently: Yes Household members: none Housing: House Marital status: Single Number of children: 3 service: No Current occupational status: employed Current occupation: [employer] History of recent travel: Yes (travels from [facility]) Current gender identity: Female Data Anesthesia Cardiac Studies: No Data to Display
--- NOTE | 2020-09-19 07:54 | W.PM.OPSUD ---
Surgery/Procedure H&P Update DATE OF PROCEDURE: September 19, 2020 DATE H&P PERFORMED: 09/11/20 H&P UPDATE INFORMATION: I have reviewed H&P completed within last 30 days, I have examined patient prior to procedure and No changes to prior documentation PREOP DIAGNOSIS: Chronic cholecystitis PLANNED PROCEDURE: Operation Date: 09/19/20 08:30 Proposed Procedures p Laparoscopic poss Open Cholecystectomy 00862 K82.9(Not Applicable) - Daquan Storm MD
--- NOTE | 2020-09-19 09:48 | PM.OP ---
Operative Report Date of procedure: September 19, 2020 Pre-op Diagnosis: Chronic cholecystitis Post-op diagnosis: same Procedure Done: Laparoscopic cholecystectomy Specimens removed/disposition: Gallbladder Surgeon: Daquan Storm Anesthesia: General Condition: stable Disposition: PACU Procedure: The patient was taken to the operating room and was intubated under general anesthesia. After the antibiotic had been administered, the abdomen was prepped and draped in a sterile manner. Using a #15 blade, a 1 centimeter infraumbilical longitudinal incision was made and using an open Tami technique the peritoneal cavity was entered. A 10 millimeter port was placed and 15 millimeters of pneumoperitoneum was created. A 10 millimeter, 30 degrees scope was then introduced. Three 5 millimeter ports were placed in the epigastric, midclavicular and the anterior axillary line two fingerbreadths below the costal margin on the right side under the direct visualization. Ratcheted forceps were introduced into the lateral most port and was used to retract the fundus of the gallbladder cephalad and using forceps the infundibulum of the gallbladder was retracted laterally. Omentum adherent to the fundus and body of the gallbladder was freed away using electrocautery. Using L-hook cautery the peritoneum overlying the Calot's triangle was opened medially and laterally until the cystic duct and the cystic artery were skeletonized. Dissection was carried along the body of the gallbladder and after ensuring critical view of safety, 4 clips applied on the cystic duct and 3 clips applied on the anterior and posterior branch of cystic artery and cut leaving, 3 clips on the remaining portion of the duct and 2 clips on the remaining portion of the anterior and posterior branch of cystic artery. The rest of the gallbladder was dissected off the liver using L-hook cautery. There was no bleeding or bile leaking noted from the gallbladder fossa and the clips appeared to be in place. An EndoCatch bag was introduced to remove the gallbladder. All the ports were removed under direct visualization and there was no bleeding noted from the port sites. The fascia of the umbilicus was closed using [id number] 0 Vicryl sutures and the subcutaneous tissue was approximated using 3-0 Vicryl sutures. The skin at all four ports were closed using 4-0 Monocryl and Dermabond. A total of 10 millimeters of 0.5% Marcaine was infiltrated around the port sites. The patient was stable throughout the procedure.
--- NOTE | 2020-09-19 10:15 | SUR.PHASEI ---
PT AWAKES TO VOICE DENIES PAIN PT ON RA TRIAL, PT TAKING MASK OFF, VSS SATS 99%. ABD SOFT WITH 4 SITES D/I PT QUICKLY BACK TO SLEEP
--- NOTE | 2020-09-19 10:21 | SUR.PHASEI ---
PT RATES ABD PAIN AT 4 BUT QUICKLY BACK TO SLEEP PT GIVEN ICE CHIP TOLERATED WELL PT PLACED ON 2LNC TO KEEP SATS OVER 94%
[2020-09-19] MEDS: morphine 4 mg/mL SDV 1 mL 2 MG IVP (10:27)
[2020-09-19] MEDS: HYDROcodone-acetaminophen 5-325 mg Tablet 1 TAB PO (10:50)
--- NOTE | 2020-09-19 12:18 | ANE.PACU2 ---
Inpatient post-anesthesia follow up: Airway intact: Yes Vital signs: Temperature 97.9 F Pulse Rate 66 Respiratory Rate 18 Blood Pressure 141/93 Pulse Oximetry 93 Oxygen Delivery Me thod Room Air Oxygen Flow Rate 2.0 Fraction of Inspir ed Oxygen Hydration adequate: Yes Nausea and vomiting: No Pain level: 4 Mental status: Baseline
== END 2020-09-19 12:25 | disposition home or self-care (01) ==
PROVIDERS: PCP Nurse Practitioner; Visit Provider Surgery
PROC: 0FT44ZZ Resection of Gallbladder, Percutaneous Endoscopic Approach (ICD-10-PCS; CPT 47562; principal; 2020-09-19 08:30)
DX: K80.10 Calculus of gallbladder with chronic cholecystitis without obstruction (principal); J44.9 Chronic obstructive pulmonary disease, unspecified; Z86.73 Personal history of transient ischemic attack (TIA), and cerebral infarction without residual deficits; I10 Essential (primary) hypertension; F17.210 Nicotine dependence, cigarettes, uncomplicated
CPT/HCPCS: 47562; 12345; 88304; J0690; J1100; J1885; J2250; J2270; J2405; J2704; J2710; J3010; J3490; J7030

== ENCOUNTER 2020-09-24 11:30 | Emergency (ER) | payer SELFPAY ==
[2020-09-24 11:32] VITALS: BP 165/92; PULSE 97; RESP 18; TEMP 36.3; O2SAT 97; BMI 26.6
--- NOTE | 2020-09-24 11:47 | W.ED.ABDPA2 ---
HPI - Abdominal Pain General: Chief Complaint: Abdominal Pain Stated Complaint: ABD pain-post gallbladder surgery Time Seen by Provider: 09/24/20 11:32 Source: patient Mode of arrival: ambulatory Limitations: no limitations History of Present Illness: HPI narrative: 45-year-old female patient status post cholecystectomy 09/19/2020. Dr. Storm surgeon. She reports onset of increased abdominal pain right upper quadrant, x24 hours. She reports hydrocodone prescription not touching the pain. She denies nausea vomiting. Reports colectomy June 2020 due to colon cancer. She denies fever or chills, states contacted Dr. Storm's office who advised her to come to the ER for evaluation. Reports yesterday, noted stool with hematochezia, small amount. MD elicited complaint: abdominal pain Onset (ago): day(s) (1) Pain Consistency: constant Location: RUQ Severity: moderate Quality: cramping and aching Radiation: RUQ and back Exacerbating factors: nothing Relieving factors: nothing Context: recent surgery/procedure Associated Symptoms: Reports anorexia and change in stool character; Denies chills, dysuria, fever(s), nausea and vomiting Review of Systems General: Reports: 10 or more systems reviewed and unremarkable except in HPI and below Const: Denies: fever(s), chills or diaphoresis Eyes: Denies: blurry vision or eye redness ENMT: Denies: throat pain, dental pain or disequilibrium Card: Denies: chest pain, palpitations or irregular heart rhythm Resp: Reports: dyspnea (chronic due to COPD) and wheezing (chronic due to COPD); Denies: productive cough or non-productive cough GI: Reports: abdominal pain (RUQ) and change in stool character; Denies: nausea or vomiting : Denies: difficulty voiding or dysuria Musc: Denies: neck pain, back pain, joint warmth or muscle cramps Skin/Breast: Denies: rash or pruritus Neuro: Denies: headache(s), weakness in extremities or behavioral changes Psych: Denies: anxiety or depression Hudson/Lymph: Denies: easy bruising PFS ED PFSH: Medical History (Updated 09/24/20 @ 15:30 by GRACIELA Weaver) Anxiety and depression Cancer of sigmoid colon T3N0M0 DDD (degenerative disc disease), lumbar Essential (primary) hypertension Migraines Surgical History (Updated 09/19/20 @ 09:41 by Daquan Storm MD) History of section one time History of hysterectomy History of laparoscopy For adhesion History of tubal ligation Status post colonoscopy (06/19/20) Status post laparoscopic cholecystectomy (09/19/20) Status post laparoscopic-assisted sigmoidectomy (06/21/20) Family History Other Arthritis CAD (coronary artery disease) Cancer Diabetes Hypertension Stroke Denies family history of Anesthesia complication Bleeding disorder Social History Smoking and tobacco status: current every day smoker cigarettes Packs smoked per day: 1.5 Second hand smoke exposure: Yes Smoking risk assessment/counseling performed?: Yes Alcohol intake: current Alcohol intake frequency: holidays/special occasions only Desire information about alcohol rehabilitation?: No Counseling given: No Desire information about substance/drug rehabilitation?: No Counseling given: No Adopted: No Caregiver/support person: No Lives independently: Yes Household members: none Housing: House Marital status: Single Number of children: 3 service: No Current occupational status: employed Current occupation: [employer] History of recent travel: Yes (travels from [facility]) Current gender identity: Female Physical Exam Const: COMMON NORMALS: no acute distress, patient oriented x3, healthy appearing and alert GENERAL APPEARANCE: cooperative, comfortable and well hydrated HENMT: COMMON NORMALS: normocephalic, Normal external nose present and moist oral mucous membranes HEAD & SCALP: normocephalic NOSE: Normal external nose present Eye: COMMON NORMALS: Equal, round and reactive pupils present and EOMs intact bilaterally GENERAL EYE: appearance normal, both eyes and all related structures PUPIL: Yes Equal, round and reactive pupils present Neck/C-Spine: COMMON NORMALS: full ROM and no lymphadenopathy GENERAL: Yes normal visual inspection and Yes trachea midline CERVICAL SPINE: Yes cervical ROM normal Lymph: LYMPHATIC: no lymphadenopathy noted Chest: COMMONS NORMALS: normal inspection of the chest Resp: COMMON NORMALS: normal respiratory effort EFFORT & INSPECTION: Yes able to speak in complete sentences AUSCULTATION: wheezes scattered wheezes and diminished lung sounds bilateral in the lower lung flores Cardio: COMMON NORMALS: regular rhythm, S1 normal heart sound present, S2 normal heart sound present and Peripheral pulses 2+ throughout RHYTHM: regular rhythm HEART SOUNDS: S1 normal heart sound present and S2 normal heart sound present PERIPHERAL PULSES: Peripheral pulses 2+ throughout GI: COMMON NORMALS: Soft to palpation INSPECTION: Yes normal to inspection, No abdominal distension, Yes incision Inspection of incision: healing well and other (slight ecchymosis) and No visible herniation PALPATION: Yes Soft to palpation and Yes Tenderness to palpation present (GI) Details: RUQ : COMMON NORMALS: Yes no CVA tenderness BLADDER/KIDNEY EXAM: Yes no CVA tenderness Back/Pelvis: COMMON NORMALS: no CVA tenderness and thoracic and lumbar spine normal to inspection Extremity: COMMON NORMALS: normal to inspection and capillary refill normal Neuro: COMMON NORMALS: patient oriented x3 and no focal motor deficits SENSORIUM/ORIENTATION: Yes alert Psych: COMMON NORMALS: mental status grossly normal, Normal thought process present and cooperative ACTIVITY/MOTOR BEHAVIOR: Yes appropriate eye contact THOUGHT PROCESS: Normal thought process present Skin: COMMON NORMALS: no rashes or lesions noted and turgor normal GENERAL SKIN EXAM: no rashes or lesions noted and turgor normal Course Consultations: Consultation #1: Dr Storm -ultrasound abdomen and serology/UA results discussed; advised to proceed with CT of the abdomen and pelvis due to patient's complaints of pain and colon resection in June. Advised to call back with results. Time: 14:00 Consultation #2: Dr Storm, 1521 -CT results discussed, CT abdomen pelvis with contrast results reviewed, advised to attempt pain control with Toradol 10 mg 3 times daily with follow-up in his office. Time: 15:20 Vital Signs: Vital signs: Vital Signs Temperature 98.1 F 09/24/20 15:43 Pulse Rate 84 09/24/20 15:43 Respiratory Rate 18 09/24/20 15:43 Blood Pressure 131/94 09/24/20 15:43 Pulse Oximetry 97 09/24/20 15:43 MDM - Abdominal Pain Lab Data: Labs: Lab Results 09/24/20 09/24/20 09/24/20 Range/Units 12:36 12:36 13:24 WBC 8.3 (4.0-10.0) 10^3/ uL RBC 4.60 (4.1-5.3) 10^6/u L Hgb 13.5 (11.5-15.3) g/dL Hct 41.4 (37.0-47.0) % MCV 90.0 (81-99) fL MCH 29.3 (28.0-34.0) pg MCHC 32.6 (30.0-36.0) g/dL RDW 12.9 (12.1-15.1) % Plt Count 317 (130-400) 10^3/c mm MPV 10.3 (7.4-10.4) fL Neut % (Auto) 48.0 % Lymph % (Auto) 28.7 % Boyle % (Auto) 9.9 % Eos % (Auto) 12.7 % Baso % (Auto) 0.5 % Neut # (Auto) 3.96 (1.8-7.7) 10^3/u L Lymph # (Auto) 2.4 (0.8-4.8) 10^3/u L Boyle # (Auto) 0.8 (0.2-0.9) 10^3/u L Eos # (Auto) 1.1 H (0.0-0.8) 10^3/u L Baso # (Auto) 0.0 (0.0-0.1) 10^3/u L Nucleated RBC % (a uto) 0 % Nucleated RBCs # 0.0 /100WBC Sodium 140 (136-145) mmol/L Potassium 4.6 (3.5-5.1) mmol/L Chloride 105 (98-107) mmol/L Carbon Dioxide 26 (22-29) mmol/L Anion Gap 13.6 (5-19) BUN 11 (6-20) mg/dL Creatinine 0.7 (0.5-0.9) mg/dL GFR Calculation 89.7 L (90-130) mL/min Glucose 91 (65-115) mg/dL Calculated Osmolal ity 289 (285-295) mOsm/k g Calcium 9.5 (8.5-10.5) mg/dL Total Bilirubin 0.2 (0.15-1.2) mg/dL AST 23 (0-32) U/L ALT 18 (0-33) U/L Alkaline Phosphata se 128 H (35-105) IU/L Total Protein 7.0 (6.6-8.7) g/dL Albumin 4.1 (3.5-5.2) g/dL Globulin 2.9 (1.3-4.6) g/dL Lipase 37 (13-60) U/L Urine Color Yellow (Yellow) Urine Appearance Sl hazy (CLEAR) Urine pH 9 H (5-7) Ur Specific Gravit y 1.015 (1.005-1.030) Urine Protein Neg (Negative) Urine Glucose (UA) Norm (Normal) Urine Ketones Negative (Negative) Urine Blood Neg (Negative) Urine Nitrate Negative (Negative) Urine Bilirubin Neg (Negative) Prot Sulfosalicyli c Acd Negative (Negative) Urine Urobilinogen Norm (Negative) mg/dL Ur Leukocyte Jacinda ase Negative (Negative) Urine RBC None (0-2) /hpf Urine WBC 0-4 H (0-5) /hpf Ur Squamous Epith Cells 0-4 H (0-5) /hpf Amorphous Sediment 1+ /hpf Urine Bacteria Trace (NONE) /hpf Imaging Data ^: US: Radiologist's impression: [address] [address] XRay Report Signed Patient: Oxana Rock Unit #: [id number] : 1975 Age/Sex: 45 / F ADM Date: 09/24/20 Loc: ER Room/Bed: Attending Dr: Ordering Provider/Ordering MD: Oxana Mclaughlin Date of Service: 09/24/20 Procedure(s): XR chest 1V portable [id number] Accession Number(s): [id number] Report Number: [id number] WS: [id number] XR chest 1V portable [id number] REASON FOR EXAM: syncope FINDINGS: The chest is unchanged compared to 04/15/2020. The heart and mediastinum are within normal limits. No active pulmonary parenchymal or pleural disease is noted. Calcified granulomatous changes are noted in both hemithoraces. Degenerative spondylosis in the mid lower thoracic spine. XR/XR chest 1V portable [id number] IMPRESSION: No acute chest abnormality, specifically no right pleural effusion or right lower lobe infiltrate is identified. Dictated By: Triston Alvares Jr, MD Signed By: Triston Alvares Jr, MD Signed Date/Time: 09/24/20 1233 DD/ 1229 CXR: Radiologist's impression: [place] [address] XRay Report Signed Patient: Oxana Rock Unit #: [id number] : 1975 Age/Sex: 45 / F ADM Date: 09/24/20 Loc: ER Room/Bed: Attending Dr: Ordering Provider/Ordering MD: Oxana Mclaughlin Date of Service: 09/24/20 Procedure(s): XR chest 1V portable [id number] Accession Number(s): [id number] Report Number: [id number] WS: [id number] XR chest 1V portable [id number] REASON FOR EXAM: syncope FINDINGS: The chest is unchanged compared to 04/15/2020. The heart and mediastinum are within normal limits. No active pulmonary parenchymal or pleural disease is noted. Calcified granulomatous changes are noted in both hemithoraces. Degenerative spondylosis in the mid lower thoracic spine. XR/XR chest 1V portable [id number] IMPRESSION: No acute chest abnormality, specifically no right pleural effusion or right lower lobe infiltrate is identified. Dictated By: Triston Alvares Jr, MD Signed By: Triston Alvares Jr, MD Signed Date/Time: 09/24/20 1233 DD/ 12 CT Abd/Pel: Radiologist's impression: [place] [address] CT Scan Report Signed Patient: Oxana Rock Unit #: [id number] : 1975 Age/Sex: 45 / F ADM Date: 09/24/20 Loc: ER Room/Bed: Attending Dr: Ordering Provider/Ordering MD: Oxana Mclaughlin Date of Service: 09/24/20 Procedure(s): CT abdomen pelvis w con* [id number] Accession Number(s): [id number] Report Number: [id number] WS: [id number] CT ABDOMEN PELVIS TECHNIQUE: Contrast-enhanced CT of the abdomen and pelvis with coronal and sagittal reformatted images. CLINICAL INFORMATION: abd pain COMPARISON: CT June 19, 2020 DLP: 1129.[address] scans at [facility] use at least one of these dose optimization techniques: automated exposure control; mA and/or kV adjustment per patient size (includes targeted exams where dose is matched to clinical indication); or iterative reconstruction. FINDINGS: Normal liver. Cholecystectomy. No free fluid in the gallbladder fossa. Normal visualized common bile duct. No intrahepatic biliary ductal dilatation. Induration involving the right periumbilical fat and subcutaneous soft tissues likely due to recent surgery. No drainable abscess or fluid collection. Normal spleen. Adrenal glands are normal. Normal renal parenchymal enhancement. No hydronephrosis. Normal pancreas. Normal caliber abdominal aorta. Postoperative changes involving the rectosigmoid. Postoperative changes in the right lower quadrant likely prior appendectomy. No evidence of small or large bowel obstruction. Fat-containing umbilical hernia CT/CT abdomen pelvis w con* [id number] IMPRESSION: 1. Recent cholecystectomy. No fluid in the gallbladder fossa. Normal visualized common bile duct. 2. Inflammatory stranding and induration in the right periumbilical fat likely due to recent surgery. No drainable fluid collection or abscess. 3. Postoperative changes rectosigmoid. 4. No hydronephrosis. Normal renal parenchymal enhancement. 5. No free fluid in the abdomen or pelvis. 6. No other significant findings. Dictated By: Carter Esparza MD Signed By: Carter Esparza MD Signed Date/Time: 09/24/201511 DD/ 01 EKG Data ^: EKG 1: EKG interpretation date: 09/24/20 EKG interpretation time: 12:48 Computer generated interpretation: Sinus rhythm, borderline left axis deviation, borderline ECG Discharge Plan Discharge Patient Disposition: Home Clinical Impression: Postoperative abdominal pain Condition: Stable Prescriptions: New ketorolac 10 mg tablet 10 mg PO Q8H PRN (Reason: pain) Qty: 20 RF: 0 No Action propranolol 10 mg tablet 10 mg PO BID Qty: 60 RF: 2 venlafaxine [Effexor XR] 150 mg capsule,extended release 24hr 150 mg PO DAILY Qty: 30 RF: 4 hydrocodone-acetaminophen [[place]] 5-325 mg tablet 1 tab PO Q6H 7 Days Qty: 20 RF: 0 ondansetron HCl [Zofran] 4 mg tablet 4 mg PO Q6H PRN (Reason: nausea and vomiting) Qty: 20 RF: 0 Tylenol 325 mg Tablet 325 - 650 mg PO Q6H PRN (Reason: Pain) RF: 0 albuterol sulfate 90 mcg/actuation Hfa Aerosol Inhaler See Rx Instructions .ROUTE .COMPLEX RF: 0 Discharge Orders: Discharge Order (Routine); Ordered 09/24/20 Ordered By: Oxana Mclaughlin Referrals: Natalie Eric, MUSHROOM GROWING SUPERVISOR-C [Primary Care Provider] - Discharge Diet: Usual diet Discharge Activity: Limit activity as instructed Patient Instructions: Abdominal Pain - Adult, Wound Healing and Your Diet (ED), Abdominal Pain (ED) Activity Restrictions/Additional Instructions: Continue follow-up with Dr. Storm as scheduled Contact Dr. Storm or return to the emergency room if you develop fever, increased abdominal pain, concerning symptoms such as vomiting or nausea. Continue to monitor incision sites, call Dr. Storm if he develops redness or drainage from the sites. New medication today; Toradol 10 mg p.o. every 8 hours as needed for pain, make sure you eat with medication to avoid stomach upset. Do not take fxzu-ykt-uabvjly medication such as ibuprofen, naproxen, Aleve as duplication of therapy can occur Drink lots and lots of fluids, stay hydrated to avoid constipation No heavy lifting, continue surgical instructions until follow-up with Dr. Storm. 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
--- NOTE | 2020-09-24 11:48 | XR_ITS ---
WS: [id number] XR chest 1V portable [id number] REASON FOR EXAM: syncope FINDINGS: The chest is unchanged compared to 04/15/2020. The heart and mediastinum are within normal limits. No active pulmonary parenchymal or pleural disease is noted. Calcified granulomatous changes are note d in both hemithoraces. Degenerative spondylosis in the mid lower thoracic spine. XR/XR chest 1V portable [id number] IMPRESSION: No acute chest abnormality, specifically no right pleural effusion or right low er lobe infiltrate is identified.
--- NOTE | 2020-09-24 11:48 | US_ITS ---
WS: [id number] ULTRASOUND ABDOMEN LIMITED CLINICAL INFORMATION: RUQ pain s/p cholecystectomy COMPARISON: Ultrasound August 21, 2020 FINDINGS: Liver Size: Normal. Craniocaudal length: 15.8 cm. Echogenicity: Normal. Surface nodularity: None. Mass (size and location): None. Bile ducts Intrahepatic ducts: Normal. Common bile duct diameter: 0.6 cm. Gallbladder Removed Pancreas Normal as visualized. Right kidney: Normal. Hydronephrosis: None. Size: 9.3 cm x 5.1 cm x 4.0 cm. Abdominal aorta and IVC Visualized portions are normal. Ascites: None. US/US abdomen limited [id number] IMPRESSION: 1. Normal liver. 2. Gallbladder is been removed. 3. No hydronephrosis in right kidney. 4. No other significant findings.
--- NOTE | 2020-09-24 11:52 | ECG_ITS ---
[facility] Test Date: 2020-09-24 Pat Name: Oxana Rock Department: Room: Gender: Female Media Coordinator: dalton : 1975 Requested By: Oxana Crain Order Number: [id number] Swati MD: Elisa Fontaine M.D. Measurements Intervals Ola Rate: 70 P: 64 IL: 126 QRS: -23 QRSD: 78 T: 9 QT: 350 QTc: 379 Interpretive Statements SINUS RHYTHM BORDERLINE LEFT AXIS DEVIATION [QRS AXIS < -20] Compared to ECG 04/15/2020 01:29:02 No significant changes Electronically Signed On 09-24-2020 18:52:40 IN ROOM DINING SERVER by Elisa Fontaine M.D. [email or web address]
[2020-09-24 12:48] VITALS: RESP 18
[2020-09-24] MEDS: morphine 4 mg/mL SDV 1 mL IVP ×2 (12:48→14:22)
[2020-09-24 12:49] LABS: Basophils % 0.5 %; Eosinophils # 1.1 10^3/uL (0.0-0.8); Eosinophils % 12.7 %; Hematocrit 41.4 % (37.0-47.0); Hemoglobin 13.5 g/dL (11.5-15.3); Lymphocytes # 2.4 10^3/uL (0.8-4.8); Lymphocytes % 28.7 %; Mean Corpuscular HGB Conc 32.6 g/dL (30.0-36.0); Mean Corpuscular Hemoglobin 29.3 pg (28.0-34.0); Mean Platelet Volume 10.3 fL (7.4-10.4); Monocytes # 0.8 10^3/uL (0.2-0.9); Monocytes % 9.9 %; Neutrophils # 3.96 10^3/uL (1.8-7.7); Nucleated Red Blood Cells % 0 %; Platelet Count 317 10^3/cmm (130-400); Red Cell Distribution Width 12.9 % (12.1-15.1); White Blood Count 8.3 10^3/uL (4.0-10.0)
[2020-09-24] MEDS: ondansetron 2 mg/ML SDV 2 mL 4 MG IVP (12:49)
[2020-09-24 13:09] LABS: Alanine Aminotransferase 18 U/L (0-33); Albumin Level 4.1 g/dL (3.5-5.2); Alkaline Phosphatase 128 IU/L (35-105); Anion Gap 13.6 (5-19); Aspartate Amino Transferase 23 U/L (0-32); Blood Urea Nitrogen 11 mg/dL (6-20); Calcium 9.5 mg/dL (8.5-10.5); Carbon Dioxide 26 mmol/L (22-29); Chloride 105 mmol/L (98-107); Globulin 2.9 g/dL (1.3-4.6); Glomerular Filtration Rate 89.7 mL/min (90-130); Glucose 91 mg/dL (65-115); Lipase 37 U/L (13-60); Osmolality Calculated 289 mOsm/kg (285-295); Potassium 4.6 mmol/L (3.5-5.1); Sodium 140 mmol/L (136-145); Total Bilirubin 0.2 mg/dL (0.15-1.2)
[2020-09-24 13:55] LABS: Urine Appearance SL Hazy (CLEAR); Urine Color Yellow (Yellow)
[2020-09-24 13:56] LABS: Add Urine Microscopic? YES; Bilirubin Urine Neg (Negative); Blood Urine Neg (Negative); Glucose Urine UA Norm (Normal); Ketones Urine Negative (Negative); Leukocyte Esterase Urine Negative (Negative); Nitrate Urine Negative (Negative); Protein Urine Neg (Negative); Specific Gravity, Urine 1.015 (1.005-1.030); Sulfosalicylic Acid Urine Negative (Negative); Urobilinogen Urine Norm (Negative); pH Urine 9 (5-7)
[2020-09-24 13:57] LABS: Amorphous Sediment Urine 1+ /hpf; Bacteria Urine TRACE /hpf; Squamous Epithelial Cell Urine 0-4 /hpf (0-5); WBC Urine 0-4 /hpf (0-5)
[2020-09-24 13:58] LABS: Add Urine Culture? No
--- NOTE | 2020-09-24 14:01 | CT_ITS ---
WS: [id number] CT ABDOMEN PELVIS TECHNIQUE: Contrast-enhanced CT of the abdomen and pelvis with coronal and sagittal reformatted image s. CLINICAL INFORMATION: abd pain COMPARISON: CT June 19, 2020 DLP: 1129.[address] scans at [facility] use at least one of these dose optimization techniques: automat ed exposure control; mA and/or kV adjustment per patient size (includes targeted exams where dose is matched to clinical indication); or iterative reconstruction. FINDINGS: Normal liver. Cholecystectomy. No free fluid in the gallbladder fossa. Normal visualized common bile duct. No intrahepatic biliary ductal dilatation. Induration involving the right periumbilical fat and subcutaneous soft tissues likely due to recent surgery. No drainable abscess or fluid collection. Normal spleen. Adrenal glands are normal. Normal renal parenchymal enhancement. No hydronephrosis. No rmal pancreas. Normal caliber abdominal aorta. Postoperative changes involving the rectosigmoid. Postoperative changes in the right lower quadrant l ikely prior appendectomy. No evidence of small or large bowel obstruction. Fat-containing umbilical h johnia CT/CT abdomen pelvis w con* [id number] IMPRESSION: 1. Recent cholecystectomy. No fluid in the gallbladder fossa. Normal visualize d common bile duct. 2. Inflammatory stranding and induration in the right periumbilical fat likely due to recent surgery. No drainable fluid collection or abscess. 3. Postoperative changes rectosigmoid. 4. No hydronephrosis. Normal renal parenchymal enhancement. 5. No free fluid in the abdomen or pelvis. 6. No other significant findings.
[2020-09-24 14:22] VITALS: RESP 18
[2020-09-24] MEDS: iohexol 300 mg/mL 100 mL Btl IV (14:47)
[2020-09-24] MEDS: ketorolac 30 mg/mL INJ IVP (15:35)
[2020-09-24 15:39] VITALS: BP 131/97; PULSE 86; RESP 18; O2SAT 97
[2020-09-24 15:43] VITALS: BP 131/94; PULSE 84; RESP 18; TEMP 36.7; O2SAT 97
== END 2020-09-24 15:55 | disposition home or self-care (01) ==
PROVIDERS: Emergency Provider Nurse Practitioner Family; PCP Nurse Practitioner
DX: G89.18 Other acute postprocedural pain (principal); R10.9 Unspecified abdominal pain; Z85.038 Personal history of other malignant neoplasm of large intestine; I10 Essential (primary) hypertension; F17.210 Nicotine dependence, cigarettes, uncomplicated
CPT/HCPCS: 12345; 71045; 74177; 76705; 80053; 81001; 83690; 85025; 93005; 96374; 96375; 96376; 99282; 99284; J1885; J2270; J2405; Q9967

== ENCOUNTER 2020-12-09 15:31 | Outpatient (CLI) | payer SELFPAY ==
--- NOTE | 2020-12-09 15:46 | XRR_ITS ---
PROCEDURE INFORMATION: Exam: XR Thoracic Spine, 3 Views Exam date and time: 12/09/2020 3:46 PM Age: 45 years old Clinical indication: Pain in thoracic spine; Additional info: M54.9 - dorsalgia, unspecified TECHNIQUE: Imaging protocol: XR of the thoracic spine, 3 views. COMPARISON: No relevant prior studies available. FINDINGS: Bones/joints: There is evidence of mild osteoarthritis with narrowing of the intervertebral disc space and bone bridging at multiple levels. No acute fracture. Normal alignment. Soft tissues: Unremarkable. XR/XR thoracic spine 3V* [id number] IMPRESSION: Mild dorsal spine osteoarthritis Otherwise No acute findings.
--- NOTE | 2020-12-09 15:46 | XRR_ITS ---
PROCEDURE INFORMATION: Exam: XR Lumbosacral Spine, 2 or 3 Views Exam date and time: 12/09/2020 3:46 PM Age: 45 years old Clinical indication: Low back pain; Additional info: M54.9 - dorsalgia, unspecified TECHNIQUE: Imaging protocol: XR of the lumbosacral spine, 2 or 3 views. COMPARISON: CT abdomen pelvis w con* [id number] 09/24/2020 2:42 PM FINDINGS: Bones/joints: Normal. No acute fracture. Normal alignment. Soft tissues: Unremarkable. XR/XR lumbar spine 2-3V* [id number] IMPRESSION: No acute findings.
== END 2020-12-09 15:32 | disposition home or self-care (01) ==
LOC: RAD 15:34
PROVIDERS: PCP Nurse Practitioner; Visit Provider Nurse Practitioner
DX: M47.814 Spondylosis without myelopathy or radiculopathy, thoracic region (principal)
CPT/HCPCS: 72072; 72100

== ENCOUNTER → 2021-03-11 14:29 | Outpatient (BNVA) | payer SELFPAY | PROVIDERS: PCP Nurse Practitioner; Visit Provider Nurse Practitioner | DX: C18.7 Malignant neoplasm of sigmoid colon (principal); E55.9 Vitamin D deficiency, unspecified; M79.18 Myalgia, other site; M54.9 Dorsalgia, unspecified | CPT/HCPCS: 80053; 82306; 82378; 85025 ==

== ENCOUNTER 2021-06-03 09:03 | Outpatient (CLI) | payer SELFPAY ==
[2021-06-03] MEDS: iohexol 300 mg/mL 50 mL Btl PO (09:15)
[2021-06-03] MEDS: iohexol 300 mg/mL 100 mL Btl IV (10:29)
--- NOTE | 2021-06-03 10:30 | CT_ITS ---
WS: [id number] CT ABDOMEN PELVIS TECHNIQUE: Contrast-enhanced CT of the abdomen and pelvis with coronal and sagittal reformatted image s. CLINICAL INFORMATION: C18.7 - Malignant neoplasm of sigmoid colon COMPARISON: CT September 24, 2020 DLP: 1064.[address] scans at [facility] use at least one of these dose optimization techniques: automat ed exposure control; mA and/or kV adjustment per patient size (includes targeted exams where dose is matched to clinical indication); or iterative reconstruction. FINDINGS: Prior cholecystectomy and hysterectomy. Prior appendectomy. Postoperative changes involving the recto sigmoid from prior resection. Diffuse fatty infiltration liver. Normal portal vein and splenic vein. Normal spleen. Normal GE junction. Lung bases are well aerated. Adrenal glands are normal. Normal re nal parenchymal enhancement. No hydronephrosis. Normal caliber abdominal aorta. No abdominal lymphade nopathy. Urine distended bladder. No pelvic or inguinal lymphadenopathy. Normal caliber abdominal aorta. Blank l pancreas. Lung bases are well aerated. Normal lumbar spine.Incidental fat-containing umbilical rossana ia. CT/CT abdomen pelvis w con* [id number] IMPRESSION: 1. Prior postoperative changes rectosigmoid for neoplasm resection. 2. No evidence of residual or recurrent disease. No adenopathy in the abdomen or pelvis. 3. Incidental fat-containing umbilical hernia. 4. Cholecystectomy. 5. Prior hysterectomy. 6. No other significant findings.
== END 2021-06-03 09:04 | disposition home or self-care (01) ==
PROVIDERS: PCP Nurse Practitioner; Visit Provider Surgery
DX: C18.7 Malignant neoplasm of sigmoid colon (principal); Z90.710 Acquired absence of both cervix and uterus; Z90.49 Acquired absence of other specified parts of digestive tract; K42.9 Umbilical hernia without obstruction or gangrene
CPT/HCPCS: 74177; Q9967

== ENCOUNTER → 2021-06-26 10:24 | Outpatient (BNVA) | payer MEDICAID, SELFPAY | PROVIDERS: PCP Nurse Practitioner; Visit Provider Nurse Practitioner | DX: C18.7 Malignant neoplasm of sigmoid colon (principal); E55.9 Vitamin D deficiency, unspecified; M79.18 Myalgia, other site; Z20.822 Contact with and (suspected) exposure to COVID-19 | CPT/HCPCS: 82306; 82378; 87635 ==

== ENCOUNTER 2021-07-01 06:09 | Day surgery (SDC) | payer SELFPAY ==
[2021-06-26 13:39] VITALS: BMI 30.7
[2021-07-01 06:24] VITALS: BP 121/82; PULSE 75; RESP 16; TEMP 36.1; O2SAT 96
[2021-07-01] MEDS: sodium chloride 0.9% 1,000 ML 30 ML IV (06:38)
--- NOTE | 2021-07-01 06:50 | W.PM.OPSFHP ---
Same Day Surgery H&P Indication for Procedure/HPI DATE OF PROCEDURE: July 01, 2021 CHIEF COMPLAINT/INDICATIONFOR SURGICAL PROCEDURE: colonoscopy for colon cancer PREOP DIAGNOSIS: screening colonoscopy PLANNED PROCEDRUE: Operation Date: 07/01/21 07:00 Proposed Procedures p Colonoscopy 07115 C18.7(Not Applicable) - Daquan Storm MD Medications/Allergies* Home Medications Medication Instructions Recorded Confirmed Type acetaminophen [Tylenol] 325 - 650 mg PO Q6H PRN 09/24/20 07/01/21 History albuterol sulfate See Rx Instructions .ROUTE .COMPLEX 09/24/20 07/01/21 History cholecalciferol (vitamin D3) 250 250 mcg PO .MTWRF cap 05/13/21 07/01/21 History mcg (10,000 unit) capsule Allergies/Adverse Reactions Allergy/AdvReac Type Severity Reaction Status Date / Time ibuprofen AdvReac vomiting Verified 05/17/21 11:16 Current Medications: Generic Name Dose Route Start Last Admin Trade Name Freq PRN Reason Stop Dose Admin Sodium Chloride 1,000 mls @ 30 mls/hr 07/01/21 06:15 07/01/21 06:38 Sodium Chloride 0.9% IV 07/02/21 06:14 30 mls/hr .Q24H STEPHEN Administration Pertinent History/Comorbid Conditions* Medical History (Updated 06/26/21 @ 10:58 by FLORI Peng) Anxiety and depression Cancer of sigmoid colon T3N0M0 DDD (degenerative disc disease), lumbar Essential (primary) hypertension Migraines Osteoarthritis of spine at multiple levels Surgical History (Updated 10/16/20 @ 18:11 by Daquan Storm MD) History of section one time History of hysterectomy History of laparoscopy For adhesion History of tubal ligation Status post colonoscopy (06/19/20) Status post laparoscopic cholecystectomy (09/19/20) Status post laparoscopic-assisted sigmoidectomy (06/21/20) Family History (Updated 06/05/20 @ 13:33 by Katia Tobias LPN) Diabetes CAD (coronary artery disease) Arthritis Cancer Hypertension Stroke Denies family history of Anesthesia complication Bleeding disorder Social History Second hand smoke exposure: Yes Smoking risk assessment/counseling performed?: Yes Alcohol intake: current Alcohol intake frequency: holidays/special occasions only Desire information about alcohol rehabilitation?: No Counseling given: No Desire information about substance/drug rehabilitation?: No Counseling given: No Adopted: No Caregiver/support person: No Lives independently: Yes Household members: none Housing: House Marital status: Single Number of children: 3 service: No Current occupational status: employed Current occupation: [employer] History of recent travel: Yes (travels from [facility]) Current gender identity: Female Pertinent Exam Findings alert, oriented x 3 and regular rate & rhythm Recommendations Surgery/Procedure today Coding Level of Care Code Acute Cosmetic Chemist for Justine Mullins
--- NOTE | 2021-07-01 06:56 | ANES.PREANE2 ---
Pre-Anesthetic Assessment Pre-Anesthetic Assessment: Height/Weight: Height 1.63 m Weight 81.193 kg Temp Pulse Resp BP Pulse Ox 97 F L 75 16 121/82 96 07/01/21 06:24 07/01/21 06:24 07/01/21 06:24 07/01/21 06:24 07/01/21 06:24 Preop Diagnosis: screening colonoscopy Proposed Procedure: Operation Date: 07/01/21 07:00 Proposed Procedures p Colonoscopy 27528 C18.7(Not Applicable) - Daquan Storm MD Was Clonidine taken within 24 hours: N/A Last intake: Intake Last Liquid Date 06/30/21 Last Liquid Time 23:00 Last Solid Date 06/29/21 Last Solid Time 00:00 Social: Social History: Tobacco and No alcohol Exam: Pre-Anes Outpt Exam: alert, oriented x 3, clear to auscultation bilaterally and regular rate & rhythm Airway: Submandibular: WNL Cervical ROM: WNL MP: 2 Dentition: Chipped, Loose and Partials History/ROS: No significant history except as noted and No significant complaints Pulmonary: Pulmonary: COPD CV/HEM: CV/HEM: HTN : : None reported Hepatic: Hepatic: None reported GI: GI: None reported Comments: Hx colon CA Metabolic: Metabolic: None reported Musc/skel: Musc/skel: None reported Neuropsych: Neuropsych: None reported Anesthetic Plan: ASA status: 3 Anesthesia: Anesthesia Evaluation and MAC Risk of > 500 ml blood loss (7ml/kg in children): No Meds/Allergies Current Medications: Current Medications Generic Name Dose Route Start Last Admin Trade Name Freq PRN Reason Stop Dose Admin Sodium Chloride 1,000 mls @ 30 ml s/hr 07/01/21 06:15 07/01/21 06:38 Sodium Chloride 0.9% IV 07/02/21 06:14 30 mls/hr .Q24H STEPHEN Administration PFSH Anesthesia PFSH: Medical History Anxiety and depression Cancer of sigmoid colon T3N0M0 DDD (degenerative disc disease), lumbar Essential (primary) hypertension Migraines Osteoarthritis of spine at multiple levels Surgical History History of section one time History of hysterectomy History of laparoscopy For adhesion History of tubal ligation Status post colonoscopy (06/19/20) Status post laparoscopic cholecystectomy (09/19/20) Status post laparoscopic-assisted sigmoidectomy (06/21/20) Family History Other Arthritis CAD (coronary artery disease) Cancer Diabetes Hypertension Stroke Denies family history of Anesthesia complication Bleeding disorder Social History Second hand smoke exposure: Yes Smoking risk assessment/counseling performed?: Yes Alcohol intake: current Alcohol intake frequency: holidays/special occasions only Desire information about alcohol rehabilitation?: No Counseling given: No Desire information about substance/drug rehabilitation?: No Counseling given: No Adopted: No Caregiver/support person: No Lives independently: Yes Household members: none Housing: House Marital status: Single Number of children: 3 service: No Current occupational status: employed Current occupation: [employer] History of recent travel: Yes (travels from [facility]) Current gender identity: Female Data Anesthesia Cardiac Studies: No Data to Display
[2021-07-01 07:22] VITALS: BP 125/82; PULSE 73; RESP 16; TEMP 36.1; O2SAT 98
[2021-07-01 07:36] VITALS: BP 131/85; PULSE 67; RESP 16; O2SAT 98
--- NOTE | 2021-07-01 15:08 | ANE.PACU2 ---
Inpatient post-anesthesia follow up: Airway intact: Yes Vital signs: Temperature 97 F Pulse Rate 67 Respiratory Rate 16 Blood Pressure 131/85 Pulse Oximetry 98 Oxygen Delivery Me thod Room Air Oxygen Flow Rate Fraction of Inspir ed Oxygen Hydration adequate: Yes Nausea and vomiting: No Pain level: 1 Mental status: Baseline
== END 2021-07-01 07:49 | disposition home or self-care (01) ==
PROVIDERS: PCP Nurse Practitioner; Visit Provider Surgery
PROC: 0DJD8ZZ Inspection of Lower Intestinal Tract, Via Natural or Artificial Opening Endoscopic (ICD-10-PCS; CPT 45378; principal; 2021-07-01 07:00)
DX: Z12.11 Encounter for screening for malignant neoplasm of colon (principal); I10 Essential (primary) hypertension; M47.9 Spondylosis, unspecified; Z83.3 Family history of diabetes mellitus; Z82.49 Family history of ischemic heart disease and other diseases of the circulatory system; Z82.3 Family history of stroke; Z85.038 Personal history of other malignant neoplasm of large intestine; J44.9 Chronic obstructive pulmonary disease, unspecified
CPT/HCPCS: 45378; 96360; J2704; J7030

== ENCOUNTER → 2021-08-21 11:37 | Outpatient (BNVA) | payer MEDICAID, SELFPAY | PROVIDERS: PCP Nurse Practitioner; Visit Provider Nurse Practitioner | DX: C18.7 Malignant neoplasm of sigmoid colon (principal); R10.31 Right lower quadrant pain | CPT/HCPCS: 80053; 81000; 85025 ==

== ENCOUNTER 2021-08-22 10:06 | Outpatient (CLI) | payer SELFPAY ==
[2021-08-22] MEDS: iohexol 300 mg/mL 50 mL Btl IV (11:38)
--- NOTE | 2021-08-22 12:00 | CT_ITS ---
WS: [id number] CT ABDOMEN PELVIS TECHNIQUE: Noncontrast CT of the abdomen and pelvis with coronal and sagittal reformatted images. CLINICAL INFORMATION: R10.31 - Right lower quadrant pain COMPARISON: June 03, 2021 DLP: 1533.[address] scans at [facility] use at least one of these dose optimization techniques: automated e xposure control; mA and/or kV adjustment per patient size (includes targeted exams where dose is matc hed to clinical indication); or iterative reconstruction. FINDINGS: Prior cholecystectomy and hysterectomy. Prior appendectomy. Prior postoperative changes involving the rectosigmoid with partial resection. Diffuse fatty infiltration of the liver. Lung bases are well ae rated. Normal noncontrast spleen. Normal GE junction. Adrenal glands are normal. No hydronephrosis in either kidney. No evidence of high-grade small or large bowel obstruction. Tiny fat-containing umbilical hernia. Nor mal caliber noncontrast aorta. No abdominal or pelvic lymphadenopathy. No inguinal lymphadenopathy. N ormal lumbar spine. CT/CT abdomen pelvis wo con [id number] IMPRESSION: 1. No acute findings in the abdomen or pelvis. 2. Prior cholecystectomy and appendectomy. Prior hysterectomy. 3. No hydronephrosis in either kidney. 4. No evidence of small or large bowel obstruction. 5. Prior postoperative changes partial rectosigmoid resection with anastomosis . 6. No adenopathy in the abdomen or pelvis.
== END 2021-08-22 10:07 | disposition home or self-care (01) ==
LOC: RAD 10:09
PROVIDERS: PCP Nurse Practitioner; Visit Provider Nurse Practitioner
DX: R10.31 Right lower quadrant pain (principal); Z90.49 Acquired absence of other specified parts of digestive tract; Q42.8 Congenital absence, atresia and stenosis of other parts of large intestine
CPT/HCPCS: 74176

== ENCOUNTER → 2022-01-06 09:16 | Outpatient (BNVA) | payer MEDICAID, SELFPAY | PROVIDERS: PCP Nurse Practitioner; Visit Provider Nurse Practitioner | DX: F41.9 Anxiety disorder, unspecified (principal); F32.9 Major depressive disorder, single episode, unspecified; M79.18 Myalgia, other site; J02.9 Acute pharyngitis, unspecified; J98.01 Acute bronchospasm; Z12.39 Encounter for other screening for malignant neoplasm of breast | CPT/HCPCS: 71046; 87071; 87880 ==

== ENCOUNTER → 2022-01-27 09:52 | Outpatient (BNVA) | payer MEDICAID, SELFPAY | PROVIDERS: PCP Nurse Practitioner; Visit Provider Nurse Practitioner | DX: E55.9 Vitamin D deficiency, unspecified (principal); F32.9 Major depressive disorder, single episode, unspecified; F41.9 Anxiety disorder, unspecified; Z13.6 Encounter for screening for cardiovascular disorders; M79.18 Myalgia, other site | CPT/HCPCS: 80053; 80061; 82306; 82607; 84443; 85025 ==

== ENCOUNTER 2022-03-13 14:51 | Outpatient (CLI) | payer MEDICAID, SELFPAY ==
--- NOTE | 2022-03-13 14:59 | MM_ITS ---
WS: [id number] BILATERAL 3D TOMOSYNTHESIS DIGITAL SCREENING MAMMOGRAPHY WITH CAD CLINICAL INFORMATION: SCREENING HISTORY: Screening mammogram. RIGHT breast soreness. LEFT breast lump. ........... COMPARISON: None. TECHNIQUE: Bilateral CC and MLO views. FINDINGS: Scattered fibroglandular densities bilaterally. No suspicious focal mass, asymmetry, calcifications, or architectural distortion. No evidence of malignancy. MM/[place] [id number] IMPRESSION: BI-RADS: 1-Negative FOLLOW UP: 1 Year Follow-up Recommend return to annual screening mammography.
== END 2022-03-13 14:52 | disposition home or self-care (01) ==
LOC: RADSHAW 14:54
PROVIDERS: PCP Nurse Practitioner; Visit Provider Nurse Practitioner
DX: Z12.31 Encounter for screening mammogram for malignant neoplasm of breast (principal)
CPT/HCPCS: 77063; 77067

== ENCOUNTER → 2022-06-16 09:34 | Outpatient (BNVA) | payer MEDICAID, SELFPAY | PROVIDERS: PCP Nurse Practitioner; Visit Provider Nurse Practitioner | DX: M79.18 Myalgia, other site (principal); K12.2 Cellulitis and abscess of mouth; C18.7 Malignant neoplasm of sigmoid colon | CPT/HCPCS: 82270 ==

== ENCOUNTER 2022-07-05 05:14 | Emergency (ER) | payer MEDICAID, SELFPAY ==
[2022-07-05 05:25] VITALS: BP 167/92; PULSE 80; RESP 18; TEMP 36.6; O2SAT 95; BMI 31.1
--- NOTE | 2022-07-05 05:34 | ED_ITS ---
Documented by User: Froilan St DO 07/06/22 16:15 HPI - Headache General: Chief Complaint: Headache Stated Complaint: Headache Time Seen by Provider: 07/05/22 05:25 History of Present Illness: 47-year-old female with a history of migraine headache. She presents today with 2 days of the worst headache of my life . She notes the headache is mainly on the left side. It stretches down from her head, behind her eye and temporally, into her neck and left shoulder blade. It is a throbbing headache. She has been somewhat nauseated, has not vomited. She is mildly light sensitive. She has been in a dark room, taken Tylenol, with no improvement. She notes her migraines have usually been well controlled after starting venlafaxine for prophylaxis a couple of years ago. She denies weakness or significant dizziness. No language problems. MD elicited complaint: headache Onset (ago): day(s) Onset description: gradually Location: left, frontal and occipital Quality & Timing: throbbing Relieving factors: nothing Associated symptoms: Reports nausea; Deny chest pain, confusion, fever(s), rash, short of breath or vomiting Review of Systems Const: Denies: fever(s) Eyes: Reports: change in vision ENMT: Denies: throat pain Card: Denies: chest pain Resp: Denies: dyspnea GI: Reports: nausea; Denies: vomiting Musc: Reports: neck pain Skin/Breast: Denies: rash Neuro: Reports: headache(s); Denies: numbness in extremities, weakness in extremities, sensory changes, dizziness, confusion or Slurred speech present [facility] ED PFSH: Medical History Anxiety and depression Cancer of sigmoid colon T3N0M0 Chronic migraine without aura, intractable, with status migrainosus DDD (degenerative disc disease), lumbar Essential (primary) hypertension Osteoarthritis of spine at multiple levels Surgical History History of section one time History of hysterectomy History of laparoscopy For adhesion History of tubal ligation Status post colonoscopy (07/01/21) 06/19/20 Repeat in 3 years Status post laparoscopic cholecystectomy (09/19/20) Status post laparoscopic-assisted sigmoidectomy (08/06/20) Family History Other Arthritis CAD (coronary artery disease) Cancer Diabetes Hypertension Stroke Denies family history of Anesthesia complication Bleeding disorder Social History Smoking and tobacco status: current every day smoker cigarettes Packs smoked per day: 1.5 Second hand smoke exposure: Yes Smoking risk assessment/counseling performed?: Yes Alcohol intake: current Alcohol intake frequency: holidays/special occasions only Desire information about alcohol rehabilitation?: No Counseling given: No Desire information about substance/drug rehabilitation?: No Counseling given: No Adopted: No Caregiver/support person: No Lives independently: Yes Household members: none Housing: House Marital status: Single Number of children: 3 service: No Current occupational status: employed Current occupation: [employer] History of recent travel: Yes (travels from [facility]) Current gender identity: Female Physical Exam Const: COMMON NORMALS: alert GENERAL APPEARANCE: cooperative; not comfortable, not ill appearing and not frail appearing HENMT: COMMON NORMALS: normocephalic and Normal external nose present HEAD & SCALP: normocephalic FACE & SINUS: no erythema and no edema NOSE: Normal external nose present Eye: COMMON NORMALS: Equal, round and reactive pupils present, EOMs intact bi laterally and conjunctivae normal VISUAL ACUITY: Yes acuity normal EYELID: eyelid abnormality left upper eyelid ptosis CONJUNCTIVA: Yes conjunctivae normal PUPIL: Yes Equal, round and reactive pupils present Chest: CHEST: Yes Symmetrical chest wall rise Resp: COMMON NORMALS: normal respiratory effort, No retractions, No use of accessory muscles and clear to auscultation bilaterally AUSCULTATION: clear to auscultation bilaterally Cardio: COMMON NORMALS: regular rate and regular rhythm RATE: regular rate RHYTHM: regular rhythm GI: COMMON NORMALS: Normal to inspection, nondistended, normoactive bowel sounds present Neuro: OMEGA COMA SCALE: document GCS findings Moega coma scale eye opening: Spontaneous [place] coma scale verbal response: Orientated [place] coma scale motor response: Obey commands Omega coma scale total score: 15 SENSORIUM/ORIENTATION: Yes alert COORDINATION/BALANCE: [id number] test normal SENSORY EXAM: Yes extremities (intact) MOTOR EXAM: Pronator motor function not present COORDINATION: [id number] test normal Psych: COMMON NORMALS: mental status grossly normal Course Vital Signs: Vital signs: Vital Signs Temperature 97.8 F 07/05/22 05:25 Pulse Rate 66 07/05/22 09:08 Respiratory Rate 16 07/05/22 09:08 Blood Pressure 127/97 07/05/22 09:08 Pulse Oximetry 96 07/05/22 09:08 Oxygen Delivery Me thod 07/05/22 05:25 MDM - Headache Medical Decision Making Patient is given a migraine cocktail head CT given the fact that this is the worst headache of her life, and she does have some lid ptosis on the left. Result is pending. She will be discharged pending a normal CT result. Lab Data Radiology Impressions Head CT 07/05/22 05:35 IMPRESSION: 1. No acute intracranial hemorrhage or mass effect. 2. No definite acute infarct by CT, see above. 3. Paranasal sinus findings as discussed above. 4. Other findings discussed above. Discharge Plan Discharge Patient Disposition: Home Clinical Impression: Migraine Condition: Stable Prescriptions: No Action cholecalciferol (vitamin D3) 250 mcg (10,000 unit) capsule 250 mcg PO .MTWRF chlorhexidine gluconate [Peridex] 0.12 % mouthwash 15 ml buccal BID Qty: 473 0RF Rx Instructions: 340B venlafaxine [Effexor XR] 150 mg capsule,extended release 24hr 150 mg PO DAILY Qty: 30 2RF Rx Instructions: Stop Lexapro and Wellburtin budesonide-formoterol [Symbicort] 80-4.5 mcg/actuation HFA aerosol inhaler 2 puff inhalation Q12H Qty: 10.2 2RF [id number]-qaxqljrlwshej-tjga [Esgic] 50-325-40 mg tablet 1 tab PO Q6H PRN (Reason: pain) Qty: 20 0RF penicillin V potassium 500 mg tablet 500 mg PO TID Qty: 30 0RF albuterol sulfate 90 mcg/actuation HFA aerosol inhaler 2 puff inhalation Q4H PRN (Reason: bronchospasm) Qty: 8.5 2RF acetaminophen [Tylenol] 325 mg Tablet 325 - 650 mg PO Q6H PRN (Reason: Pain) Discharge Orders: Discharge ED (Routine); Ordered 07/05/22 Ordered By: Kaveh Serrano Referrals: Hernesto,FLORI Juarez [Primary Care Provider] - 1-3 days Discharge Diet: Advance as tolerated Discharge Activity: Increase activity as tolerated Patient Instructions: Acute Headache (ED) Activity Restrictions/Additional Instructions: Return for fever, worsening headache, vomiting, mental status changes, weakness, language problems, any other concerning symptoms. Sign Out Sign Out Data: Patient Sign Out occurred on 07/05/22 at 06:32. Patient's care was discussed, and care was transferred from to Kaveh Serrano DO. Coding Level of Care Code ED [facility] Documented by User: Kaveh Serrano DO 07/05/22 09:03 HPI - Headache General: Chief Complaint: Headache Stated Complaint: Headache Time Seen by Provider: 07/05/22 05:25 PFSH ED PFSH: Medical History Anxiety and depression Cancer of sigmoid colon T3N0M0 Chronic migraine without aura, intractable, with status migrainosus DDD (degenerative disc disease), lumbar Essential (primary) hypertension Osteoarthritis of spine at multiple levels Surgical History History of section one time History of hysterectomy History of laparoscopy For adhesion History of tubal ligation Status post colonoscopy (07/01/21) 06/19/20 Repeat in 3 years Status post laparoscopic cholecystectomy (09/19/20) Status post laparoscopic-assisted sigmoidectomy (06/21/20) Family History Other Arthritis CAD (coronary artery disease) Cancer Diabetes Hypertension Stroke Denies family history of Anesthesia complication Bleeding disorder Social History Smoking and tobacco status: current every day smoker cigarettes Packs smoked per day: 1.5 Second hand smoke exposure: Yes Smoking risk assessment/counseling performed?: Yes Alcohol intake: current Alcohol intake frequency: holidays/special occasions only Desire information about alcohol rehabilitation?: No Counseling given: No Desire information about substance/drug rehabilitation?: No Counseling given: No Adopted: No Caregiver/support person: No Lives independently: Yes Household members: none Housing: House Marital status: Single Number of children: 3 service: No Current occupational status: employed Current occupation: [employer] History of recent travel: Yes (travels from [facility]) Current gender identity: Female Course Vital Signs: Vital signs: Vital Signs Temperature 97.8 F 07/05/22 05:25 Pulse Rate 66 07/05/22 09:08 Respiratory Rate 16 07/05/22 09:08 Blood Pressure 127/97 07/05/22 09:08 Pulse Oximetry 96 07/05/22 09:08 Oxygen Delivery Me thod 07/05/22 05:25 MDM - Headache Medical Decision Making Patient is given a migraine cocktail head CT given the fact that this is the worst headache of her life, and she does have some lid ptosis on the left. Result is pending. She will be discharged pending a normal CT result. Care assumed from Dr. St at change of shift. CT head is negative. She still had residual headaches and was given another round of medications and had pretty significant improvement rated her pain down to a 3 out of 10. On repeat exam no focal neurologic deficits noted. Discussed findings with the patient we will discharge her home continue previously prescribed medications advised rest for the remainder the day. Medical Records I reviewed the patient's medical records. Lab Data I reviewed the patient's lab results. (Imaging reviewed) Radiology Impressions Head CT 07/05/22 05:35 IMPRESSION: 1. No acute intracranial hemorrhage or mass effect. 2. No definite acute infarct by CT, see above. 3. Paranasal sinus findings as discussed above. 4. Other findings discussed above. Discharge Plan Discharge Patient Disposition: Home Clinical Impression: Migraine Condition: Stable Prescriptions: No Action cholecalciferol (vitamin D3) 250 mcg (10,000 unit) capsule 250 mcg PO .MTWRF chlorhexidine gluconate [Peridex] 0.12 % mouthwash 15 ml buccal BID Qty: 473 0RF Rx Instructions: 340B venlafaxine [Effexor XR] 150 mg capsule,extended release 24hr 150 mg PO DAILY Qty: 30 2RF Rx Instructions: Stop Lexapro and Wellburtin budesonide-formoterol [Symbicort] 80-4.5 mcg/actuation HFA aerosol inhaler 2 puff inhalation Q12H Qty: 10.2 2RF ddrotawllw-qsqbxdlblqgjh-qxpe [Esgic] 50-325-40 mg tablet 1 tab PO Q6H PRN (Reason: pain) Qty: 20 0RF penicillin V potassium 500 mg tablet 500 mg PO TID Qty: 30 0RF albuterol sulfate 90 mcg/actuation HFA aerosol inhaler 2 puff inhalation Q4H PRN (Reason: bronchospasm) Qty: 8.5 2RF acetaminophen [Tylenol] 325 mg Tablet 325 - 650 mg PO Q6H PRN (Reason: Pain) Discharge Orders: Discharge ED (Routine); Ordered 07/05/22 Ordered By: Kaveh Serrano Referrals: Natalie Eric, [facility] [Primary Care Provider] - 1-3 days Discharge Diet: Advance as tolerated Discharge Activity: Increase activity as tolerated Patient Instructions: Acute Headache (ED) Activity Restrictions/Additional Instructions: Return for fever, worsening headache, vomiting, mental status changes, weakness, language problems, any other concerning symptoms. Sign Out Sign Out Data: Patient Sign Out occurred on 07/05/22 at 06:32. Patient's care was discussed, and care was transferred from to Kaveh Serrano DO. Coding Level of Care Code ED [facility]
--- NOTE | 2022-07-05 05:35 | CTR_ITS ---
PROCEDURE INFORMATION: Exam: CT Head Without Contrast Exam date and time: 07/05/2022 5:42 AM Age: 47 years old Clinical indication: Pain; Headache; Patient HX: Severe headahce with left sided ptosis. History of migraines; Additional info: Headache, left ptosis TECHNIQUE: Imaging protocol: Computed tomography of the head without contrast. Radiation optimization: All CT scans at this facility use at least one of these dose optimization techniques: automated exposure control; mA and/or kV adjustment per patient size (includes targeted exams where dose is matched to clinical indication); or iterative reconstruction. COMPARISON: CT head wo con* [id number] 04/15/2020 12:47 AM RADIATION DOSE METRICS: Total DLP (mGy-cm): 1048.18 FINDINGS: Brain: No acute intracranial hemorrhage or mass effect. No definite acute infarct by CT. MRI could be more sensitive/specific for detection, as clinically directed. Cerebral ventricles: Ventricle size is normal for age. Paranasal sinuses: Mild mucosal thickening/opacity in the ethmoid and frontal sinuses. Included paranasal sinuses otherwise appear essentially clear. Mastoid air cells: No significant acute finding. Bones/joints: No definite acute skull fracture. Soft tissues: No significant acute finding. CT/CT head wo con* [id number] IMPRESSION: 1. No acute intracranial hemorrhage or mass effect. 2. No definite acute infarct by CT, see above. 3. Paranasal sinus findings as discussed above. 4. Other findings discussed above.
[2022-07-05] MEDS: ketorolac 30 mg/mL INJ 15 MG IVP ×2 (05:53→06:45)
[2022-07-05] MEDS: metoclopramide 5 mg/mL SDV 2 mL 10 MG IVP (05:53)
[2022-07-05 05:54] VITALS: RESP 18
[2022-07-05] MEDS: SUMAtriptan 25 mg Tablet 100 MG PO (05:54)
[2022-07-05] MEDS: fentaNYL 50 mcg/mL INJ 2mL IVP (05:54)
[2022-07-05] MEDS: sodium chloride 0.9% 1,000 ML 999 ML IV (06:45)
[2022-07-05] MEDS: diphenhydrAMINE 50 mg/mL SDV 1mL IVP (06:47)
[2022-07-05] MEDS: promethazine 25 mg/mL SDV 1 mL IM (06:50)
[2022-07-05 08:20] VITALS: RESP 18; O2SAT 93
[2022-07-05] MEDS: morphine 4 mg/mL SDV 1 mL IVP (08:20)
[2022-07-05 09:08] VITALS: BP 127/97; PULSE 66; RESP 16; O2SAT 96
== END 2022-07-05 09:10 | disposition home or self-care (01) ==
PROVIDERS: Emergency Provider Family Medicine; PCP Nurse Practitioner
DX: G43.909 Migraine, unspecified, not intractable, without status migrainosus (principal); Z85.038 Personal history of other malignant neoplasm of large intestine; I10 Essential (primary) hypertension; F17.210 Nicotine dependence, cigarettes, uncomplicated
CPT/HCPCS: 70450; 96372; 96374; 96375; 96376; 99285; J1200; J1885; J2270; J2550; J2765; J3010; J7030

== ENCOUNTER → 2022-08-18 09:39 | Outpatient (BNVA) | payer MEDICAID, SELFPAY | PROVIDERS: PCP Nurse Practitioner; Visit Provider Nurse Practitioner | DX: E55.9 Vitamin D deficiency, unspecified (principal); M47.819 Spondylosis without myelopathy or radiculopathy, site unspecified; M79.18 Myalgia, other site | CPT/HCPCS: 82306; 84550; 85025; 85651; 86140 ==

== ENCOUNTER → 2022-10-20 11:05 | Outpatient (BNVA) | payer MEDICAID, SELFPAY | PROVIDERS: PCP Nurse Practitioner; Visit Provider Anesthesiology Pain Medicine | DX: M47.819 Spondylosis without myelopathy or radiculopathy, site unspecified (principal) | CPT/HCPCS: 72110 ==

== ENCOUNTER 2022-10-22 13:30 | Outpatient (CLI) | payer MEDICAID, SELFPAY ==
--- NOTE | 2022-10-22 15:00 | CT_ITS ---
WS: [id number] CT ABDOMEN AND PELVIS WITH CONTRAST HISTORY: R10.9 - Unspecified abdominal pain, sharp pain that radiates from front to the mid abdomen i nto back for 2 months. History of colon cancer. TECHNIQUE: Imaging performed of the abdomen and pelvis with IV contrast. Single phase imaging of the abdomen. Coronal and sagittal reformats are submitted. All CT scans at [facility] use at [facility] one of these dose optimization techniques: automated exposure control; mA and/or kV adjustment per patient size (includes targeted exams where dose is matched to clinical indication); or iterative re construction. IV CONTRAST: Omnipaque 350; 95 mL IV. Oral contrast: Yes. DLP: 1230.63 mGy.cm COMPARISON: 08/22/2021, 06/03/2021 Lower thorax: Focal linear atelectasis RIGHT middle lobe incompletely visualized. Mild tree-in-bud ai rspace disease at the lung bases but greatest on the RIGHT. 7 mm irregularly shaped nodule at the LEF T lung base may be an area of atelectasis or pneumonitis. Heart is normal size. No hiatal hernia. Liver/biliary system: Normal size with no intrahepatic dilatation. Gallbladder: Status post cholecystectomy. Pancreas: Normal size pancreas and pancreatic duct. No adjacent inflammation. Spleen: Normal size spleen. No mass or infarct. Adrenal glands: Normal. Right kidney: Normal. Left kidney: Normal. Aorta: Normal. Lymphadenopathy: There are a few small subcentimeter lymph nodes around the celiac axis with the larg est measuring 7.5 mm. No retroperitoneal nodes. Free fluid: None. GI tract: Stomach is well distended with oral contrast. There is a large amount of debris within the stomach from recent meal ingestion. Rectosigmoid anastomotic sutures are unchanged. No recurrent mass and no obstruction. No adjacent adenopathy. Normal appendix. Abdominal wall: Fat containing umbilical hernia. Pelvis: No free fluid or adenopathy within the pelvis. Prior hysterectomy. Bones: Unremarkable. CT/CT abdomen pelvis w con* [id number] IMPRESSION: 1. Rectosigmoid anastomosis is stable. No recurrent mass. 2. Stomach is markedly distended with food products and there is increased sof t tissue within the duodenal C-loop. These changes all may be related to ingest ed food products. The soft tissue nodularity within the duodenal C-loop is krystina stinct from the submucosa. Endoscopy may be necessary to exclude neoplasm. Comp onent of gastroparesis should also be considered due to the distention of the s tomach with food products. 3. No adenopathy or ascites. 4. Bilateral lower lobe areas of very minimal atelectasis and tree-in-bud airs pace disease. Likely pneumonitis. Recommend follow-up chest CT in 3 months to e xclude persistent nodule or increasing size of these opacifications. CT of the abdomen and pelvis can also be obtained at that time to reevaluate the duodenal C-loop if endoscopy is not performed. Study should be performed with IV and or al contrast. 5. Prior cholecystectomy and hysterectomy.
[2022-10-22] MEDS: iohexol 350 mg/mL 500 mL Btl (per mL) IV (15:19)
[2022-10-22] MEDS: iohexol 350 mg/mL 500 mL Btl (per mL) PO (15:19)
== END 2022-10-22 13:31 | disposition home or self-care (01) ==
LOC: RAD 13:31
PROVIDERS: PCP Nurse Practitioner; Visit Provider Nurse Practitioner
DX: C18.7 Malignant neoplasm of sigmoid colon (principal); R10.9 Unspecified abdominal pain
CPT/HCPCS: 74177; Q9967

== ENCOUNTER → 2022-11-03 10:13 | Outpatient (BNVA) | payer MEDICAID, SELFPAY | PROVIDERS: PCP Nurse Practitioner; Visit Provider Nurse Practitioner | DX: R19.5 Other fecal abnormalities (principal) | CPT/HCPCS: 85025 ==

== ENCOUNTER → 2022-11-06 09:49 | Outpatient (BNVA) | payer MEDICAID, SELFPAY | PROVIDERS: PCP Nurse Practitioner; Visit Provider Nurse Practitioner | DX: R19.5 Other fecal abnormalities (principal) | CPT/HCPCS: 82270 ==

== ENCOUNTER → 2022-12-22 10:45 | Outpatient (BNVA) | payer MEDICAID, SELFPAY | PROVIDERS: PCP Nurse Practitioner; Visit Provider Nurse Practitioner | DX: C18.7 Malignant neoplasm of sigmoid colon (principal); J98.01 Acute bronchospasm; J44.9 Chronic obstructive pulmonary disease, unspecified; R93.5 Abnormal findings on diagnostic imaging of other abdominal regions, including retroperitoneum; M79.18 Myalgia, other site; M51.36 Other intervertebral disc degeneration, lumbar region; F41.9 Anxiety disorder, unspecified; I10 Essential (primary) hypertension; F32.9 Major depressive disorder, single episode, unspecified | CPT/HCPCS: 80053; 80061; 82378; 85025 ==

== ENCOUNTER 2023-02-11 15:16 | Outpatient (CLI) | payer MEDICAID, SELFPAY ==
--- NOTE | 2023-02-11 17:00 | CT_ITS ---
WS: [id number] CT CHEST, ABDOMEN AND PELVIS WITH CONTRAST HISTORY: Follow-up CT to reevaluate the GI track and lungs. History of colon cancer. TECHNIQUE: Contiguous 5 mm axial imaging performed through the chest, abdomen and pelvis with IV cont rast, oral contrast has been provided. Coronal and sagittal reformats chest. Coronal and sagittal ref ormats through the abdomen and pelvis. All CT scans at [facility] use at least one of these d ose optimization techniques: automated exposure control; mA and/or kV adjustment per patient size (in cludes targeted exams where dose is matched to clinical indication); or iterative reconstruction. CONTRAST: Omnipaque 350; 100 mL IV. DLP: 1117.31 mGy.cm COMPARISON: 10/22/[address]: There are aeration of both lungs as compared to the prior study. Changes of moderate hypere xpansion from emphysema. Linear atelectasis noted along the fissures bilaterally. Mild hazy attenuati on probably from history of smoking. 5 mm nodule posterior RIGHT upper lobe. Numerous mediastinal and hilar lymph nodes. Majority of these lymph nodes contain calcifications suggesting benign appearance . Normal size heart. No pericardial or pleural effusions. Normal size aorta and pulmonary artery. Abdomen CT: Small hiatal hernia. Normal liver and spleen. Normal portal vein. Prior cholecystectomy. Normal pancreas and adrenal glands. Mildly prominent pancreatic head is similar to prior studies. No pancreatic duct dilatation. Normal kidneys. Mild atherosclerosis aorta. Stomach is well distended with oral contrast. There is mild continued thickening involving the antrum of the stomach and duodenum but slightly improved since the prior study. No small bowel obstruction. Normal appendix. Rectosigmoid sutures again identified with no obstruction or increasing soft tissue mass or adenopathy. Small umbilical fat-containing hernia. No adenopathy or ascites. Pelvic CT: No free fluid or adenopathy. Prior hysterectomy. Negative urinary bladder. No destructive bone lesions. CT/CT chest abdpel w/*[id number] IMPRESSION: 1. Persistent but slightly improved mild circumferential thickening of the sto mach antrum and proximal duodenum. No focal mass identified. 2. Prior cholecystectomy and hysterectomy. 3. Chronic emphysema. 4. RIGHT upper lobe 5 mm nodule. Recommend follow-up chest CT in 3-4 months. 5. Mediastinal and hilar lymph nodes. Majority of these contain calcifications suggesting they are benign. 6. Rectosigmoid anastomotic sutures are identified. No recurrent mass or adeno jass identified. 7. No metastatic disease to the liver or adrenal glands.
[2023-02-11] MEDS: iohexol 350 mg/mL 500 mL Btl (per mL) PO (17:04)
[2023-02-11] MEDS: iohexol 350 mg/mL 500 mL Btl (per mL) IV (17:04)
== END 2023-02-11 15:17 | disposition home or self-care (01) ==
LOC: RAD 15:16
PROVIDERS: PCP Nurse Practitioner; Visit Provider Nurse Practitioner
DX: R93.89 Abnormal findings on diagnostic imaging of other specified body structures (principal); R93.5 Abnormal findings on diagnostic imaging of other abdominal regions, including retroperitoneum; Z85.038 Personal history of other malignant neoplasm of large intestine; J43.9 Emphysema, unspecified; R91.1 Solitary pulmonary nodule
CPT/HCPCS: 71260; 74177; Q9967

== ENCOUNTER 2023-03-30 06:04 | Outpatient (CLI) | payer MEDICAID, SELFPAY ==
--- NOTE | 2023-03-30 06:15 | USCV_ITS ---
Oxana Rock Age: 47 Gender: F : 1975 Exam Date: 03/30/2023 06:23 Ordering Phys: Natalie Eric Technologist: CT Exam Location: [place] Indication: Risk Factors: Previous Vascular Surgery: RIGHT LEFT BP: 135.0 / 40.00 BP: / 0 Waveform Velocity (cm/s) Velocity (cm/s) Waveform Triphasic 70.0 Iliac Prox Triphasic 68.8 Iliac Mid Triphasic 72.1 Iliac Distal Triphasic 61.5 CONSTRUCTION PROJECT MANAGER Triphasic 73.0 SFA Prox Triphasic 76.9 SFA Mid Triphasic 74.0 SFA Dist Triphasic 39.5 POP Triphasic 49.8 DIAGNOSTICS SALES DEVELOPER Triphasic 69.9 DPA 1.2 RANDY FINDINGS Triphasic Doppler waveforms Normal Doppler flow velocities Normal resting RANDY of 1.2 CONCLUSIONS No evidence of any significant arterial obstruction, based on the above findings. Dr Kelvin Houser MD [facility] (Electronically Signed) Final Date: 30 Mar 2023 09:46 S
== END 2023-03-30 06:05 | disposition home or self-care (01) ==
PROVIDERS: PCP Nurse Practitioner; Visit Provider Nurse Practitioner
DX: I70.90 Unspecified atherosclerosis (principal)
CPT/HCPCS: 93926

== ENCOUNTER → 2023-06-22 10:08 | Outpatient (BNVA) | payer BC, SELFPAY | PROVIDERS: PCP Nurse Practitioner; Visit Provider Nurse Practitioner | DX: I10 Essential (primary) hypertension (principal); E78.2 Mixed hyperlipidemia | CPT/HCPCS: 80053; 80061; 81000; 85025 ==

== ENCOUNTER 2023-06-25 10:35 | Outpatient (CLI) | payer BC, MEDICAID, SELFPAY ==
--- NOTE | 2023-06-25 11:00 | CT_ITS ---
WS: [id number] CT chest wo con [id number] HISTORY: R91.1 - Solitary pulmonary nodule TECHNIQUE: Axial imaging performed through the thorax. Coronal and sagittal reformats are submitted. All CT scans at [facility] use at least one of these dose optimization techniques: automated exposure control; mA and/or kV adjustment per patient size (includes targeted exams where dose is mat ched to clinical indication); or iterative reconstruction. CONTRAST: None DLP: 315.68 mGy.cm COMPARISON: 02/11/2023 Lungs and central airway: 5 mm nodule in the posterior right upper lobe is reidentified with no inter braydon change. Mild atelectasis towards the lingula and right middle lobes. There is an area of bronchia l wall thickening involving the central right middle lobe bronchus which has progressed since 02/12/20. Pleura: Normal. No pleural effusion. Heart and pericardium: Normal size heart with no pericardial effusion. Mediastinum and melania: Increasing soft tissue at the right hilum adjacent to benign calcifications. Th is is the site of the bronchial wall thickening and partial obstruction. Benign-appearing mediastinal and hilar lymph nodes otherwise. These additional lymph nodes contains calcifications. Vessels: Normal size aortic and pulmonary artery. No coronary artery calcifications. Chest wall and lower neck: No soft tissue masses. Upper abdomen: No adrenal mass. Prior cholecystectomy. Osseous structures: No destructive process. IMPRESSION: 1. No increase in size of the 5 mm nodule in the right upper lobe. Recommend continued CT surveillanc e. Recommend follow-up chest CT in 6 months. 2. Increasing soft tissue thickening and bronchial obstruction involving the proximal right middle lo be bronchus. Consider evaluation by pulmonology for possible bronchoscopy. Early neoplasm versus muco us.
== END 2023-06-25 10:36 | disposition home or self-care (01) ==
LOC: RAD 10:36
PROVIDERS: PCP Nurse Practitioner; Visit Provider Nurse Practitioner
DX: R91.1 Solitary pulmonary nodule (principal); J98.09 Other diseases of bronchus, not elsewhere classified
CPT/HCPCS: 71250

== ENCOUNTER → 2023-06-30 14:46 | Outpatient (BNVA) | payer BC, MEDICAID, SELFPAY | PROVIDERS: PCP Nurse Practitioner; Referring Provider Nurse Practitioner; Visit Provider Internal Medicine Pulmonary Disease | DX: R91.1 Solitary pulmonary nodule (principal) | CPT/HCPCS: 36415; 82785; 86003 ==

== ENCOUNTER 2023-07-25 05:35 | Outpatient (CLI) | payer BC, MEDICAID, SELFPAY ==
--- NOTE | 2023-07-25 | PETR_ITS ---
PROCEDURE INFORMATION: Exam: PET/CT Skull Base to Mid-thigh Exam date and time: 07/25/2023 8:52 AM Age: 48 years old Clinical indication: Symptoms: Pulmonary nodule; Additional info: Nodule right lung LABS AND CLINICAL REPORTS: Glucose: 87 mg/dl Treatment strategy for malignancy (PET staging): Initial Staging (PI) TECHNIQUE: Imaging protocol: Following at least four-hour fasting and following the injection of radiopharmaceutical, low dose CT images were obtained. Then, PET images were obtained. Attenuation corrected images were constructed using the CT scan. Fused images of PET and CT were reviewed. The standardized uptake values (SUV) reported below are maximum values within a region of interest, expressed in gm/ml. Exam includes orbital meatal line to mid-thigh. Radiopharmaceutical: 14.3 mCi F-18 FDG (Fluorodeoxyglucose), IV. Time of imaging post radiopharmaceutical administration: 1 hour Injection site: Not specified COMPARISON: [facility] [id number] 06/25/2023 11:01 AM, CT chest, abdomen and pelvis 02/11/2023 FINDINGS: Brain: Visualized brain has normal physiologic uptake. Pharynx: No abnormal uptake. Larynx: No abnormal uptake. Lungs, pleura and trachea: A solid posterior right upper lobe 4 mm nodule on series 3, image 46 is not radiotracer avid, SUV max 0.7. There is evidence of similar truncation of the right middle lobe bronchus. There is mild streaky density in the lingula and right middle lobe compatible with atelectasis or scarring. Heart: Normal physiologic uptake. Mediastinal space: No abnormal uptake. Liver: No abnormal uptake. Gallbladder and bile ducts: No abnormal uptake. Pancreas: No abnormal uptake. Spleen: No abnormal uptake. Adrenal glands: No abnormal uptake. Kidneys and ureters: Normal physiologic uptake. Stomach and bowel: No abnormal uptake. There is a surgical staple line in the sigmoid colon. Vasculature: No abnormal uptake. Lymph nodes: No abnormal uptake. There are small partially calcified bilateral hilar and mediastinal lymph nodes. In a region of partially calcified soft tissue density likely representing a lymph node in the right hilar region measuring approximately 1 cm in diameter on series 3, image 57, low-level uptake is identified, SUV max 3.4. Bones/joints: No abnormal uptake in the visualized axial and appendicular skeleton. There is mild diffuse vertebral body spondylosis. Soft tissues: No abnormal uptake in the visualized head, neck, chest, abdomen, pelvis, and extremities. METRICS: Mediastinal blood pool: SUV max 2.1 PET[facility] SUB[facility] [id number] IMPRESSION: 1. A similar posterior right upper lobe solid nodule is not radiotracer avid. Assessment of small nodules can be limited by PET-CT. 2. There are small partially calcified bilateral hilar and mediastinal lymph nodes, one of which is mildly radiotracer avid in the right hilar region. This uptake may be inflammatory or atypical infectious in etiology. A neoplastic etiology cannot be entirely excluded. 3. Similar truncation of the right middle lobe bronchus possibly related to the mildly radiotracer avid right hilar lymph node. Bronchoscopy may be useful for more definitive evaluation of this finding as clinically indicated. 4. Additional nonurgent findings as detailed above.
== END 2023-07-25 05:36 | disposition home or self-care (01) ==
LOC: RAD 07-27 05:36
PROVIDERS: PCP Nurse Practitioner; Visit Provider Internal Medicine Pulmonary Disease
DX: R91.1 Solitary pulmonary nodule (principal); I89.8 Other specified noninfective disorders of lymphatic vessels and lymph nodes; R91.8 Other nonspecific abnormal finding of lung field
CPT/HCPCS: 78815; A9552

== ENCOUNTER 2023-08-04 08:36 | Day surgery (SDC) | payer BC, MEDICAID, SELFPAY ==
[2023-08-04] VITALS (10 sets, daily range): BP systolic 95–132; BP diastolic 54–76; PULSE 73–89; RESP 14–19; TEMP 36.2–36.3; O2SAT 90–99; BMI 31.1
--- NOTE | 2023-08-04 09:09 | P.HP_ITS ---
Providers/Chief Complaint Primary Care Provider: Natalie Eric, [facility]-C Chief Complaint: R91.1 R59.0 History of Present Illness Ms. Oxana Rock is 48 year old female with PMH of COPD colon cancer in june 2020; s/p resection in june 2020; referred by by Ms. Hernesto ALEJANDRE for abnormal finding of lung. Smoking 2 ppd with hx of 1-2 ppd X 35 years, started at age 13. No plan to quit SOB with exertion, coughing, wheezing, and fatigue. She was diagnosed colon cancer in june 2020; s/p resection in june 2020; :? 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 She was referred to [facility] and was told to manage expectantly and no adjuvanct chemo was offered. As part of survelliance she had CT chest abd pelvis in january 2023 which showed ?RIGHT upper lobe 5 mm nodule. Follow-up chest CT in June 25 2023 showed No increase in size of the 5 mm nodule in the right upper lobe. Recommend continued CT surveillance. Increasing soft tissue thickening and bronchial obstruction involving the proximal right middle lobe bronchus. Subsequent PET CT scan 07/25/2023: Showed similar truncation of right middle lobe bronchus possibly related to mildly radiotracer avid right hilar lymph node with SUV 3.4. This uptake may be inflammatory or atypical infectious in etiology.A neoplastic etiology cannot be entirely excluded. recommended evaluation by pulmonology for possible bronchoscopy to rule out malignancy Hence she is here today for bronchoscopic inspection of airways as well as endobronchial biopsies if there is any obstructive lesion; followed by endobronchial ultrasound-guided biopsy of hilar/mediastinal lymph nodes. Review of Systems General: Reports: 10 or more systems reviewed and unremarkable except in HPI and below Medications/Allergies Home Medications Medication Instructions Recorded Confirmed Last Taken Type acetaminophen 325 mg tablet 325 - 650 mg PO Q6H PRN Pain 11/09/20 09/19/23 09/15/23 History (Tylenol) cholecalciferol (vitamin D3) 250 250 mcg PO DAILY 09/22/22 08/04/23 08/03/23 History mcg (10,000 unit) capsule triamcinolone acetonide 0.1 % 1 applic topical BID PRN itching 09/22/22 08/04/23 08/03/23 Rx topical cream arms #30 grams albuterol sulfate 90 mcg/actuation 2 puff inhalation Q4H PRN 02/27/23 08/04/23 08/04/23 06:00 Rx aerosol inhaler bronchospasm #8.5 grams fenofibrate nanocrystallized 145 145 mg PO DAILY #30 tabs 02/27/23 08/04/23 08/03/23 Rx mg tablet (Tricor) pen needle, diabetic 33 gauge x #100 ea 04/20/23 08/04/23 07/31/23 Rx /32 budesonide-formoterol HFA 80 2 puff inhalation Q12H #10.2 grams 05/18/23 08/04/23 08/04/23 06:00 Rx mcg-4.5 mcg/actuation aerosol inhaler (Symbicort) gabapentin 300 mg capsule 300 mg PO TID pain #90 caps 05/18/23 08/04/23 08/04/23 06:00 Rx losartan 50 mg tablet (Cozaar) 50 mg PO DAILY #30 tabs 05/18/23 08/04/23 08/03/23 Rx pantoprazole 40 mg tablet,delayed 40 mg PO DAILY #30 tabs 05/18/23 08/04/23 08/03/23 Rx release (Protonix) venlafaxine 150 mg 150 mg PO DAILY #30 caps 05/18/23 08/04/23 08/04/23 06:00 Rx capsule,extended release 24 hr (Effexor XR) liraglutide 0.6 mg/0.1 mL (18 mg/3 1.8 mg (0.3 mL) SUBCUT DAILY #9 mL 06/22/23 08/04/23 08/02/23 Rx mL) subcutaneous pen injector (Victoza 3-Truman) topiramate 25 mg tablet (Topamax) 25 mg PO BID #60 tabs 06/22/23 08/04/23 08/03/23 Rx cyclobenzaprine 10 mg tablet 10 mg PO BID #60 tabs 07/21/23 08/04/23 08/04/23 06:00 Rx Allergies Allergy/AdvReac Type Severity Reaction Status Date / Time celecoxib [From Celebrex] AdvReac ADR-Gastrointestinal Verified 08/04/23 09:03 Upset ibuprofen AdvReac vomiting Verified 08/04/23 09:03 PFSH PFSH: Medical History Anxiety and depression Cancer of sigmoid colon T3N0M0 in June 19, 2020 Chronic migraine without aura, intractable, with status migrainosus COPD (chronic obstructive pulmonary disease) Essential (primary) hypertension Hyperlipidemia, mixed OA (osteoarthritis of spine) Obesity (BMI 30-39.9) Osteoarthritis of spine at multiple levels Surgical History History of section one time History of hysterectomy History of laparoscopy For adhesion History of tubal ligation Status post colonoscopy (07/01/21) 06/19/20 Repeat in 3 years Status post laparoscopic cholecystectomy (09/19/20) Status post laparoscopic-assisted sigmoidectomy (06/21/20) Family History Other Arthritis CAD (coronary artery disease) Cancer Diabetes Hypertension Stroke Denies family history of Anesthesia complication Bleeding disorder Social History Smoking and tobacco status: current every day smoker cigarettes Packs smoked per day: 2 Years cigarettes smoked: 35 [ Other cigarette details: started at age 13] Second hand smoke exposure: Yes Smoking risk assessment/counseling performed?: Yes Alcohol intake: current Alcohol intake frequency: holidays/special occasions only Desire information about alcohol rehabilitation?: No Counseling given: No Substance/Drug Use: never Desire information about substance/drug rehabilitation?: No Counseling given: No Adopted: No Caregiver/support person: No Lives independently: Yes Household members: none Housing: House Marital status: Single Number of children: 3 service: No Current occupational status: employed Current occupation: [employer] Do you think of yourself as: Straight/Heterosexual Current gender identity: Female Dietary Habits: Caffeine: Yes Vital Signs Vitals Signs: Last Vital Signs Temp 97.1 F L 08/04/23 08:58 Pulse 79 08/04/23 08:58 Resp 17 08/04/23 08:58 BP 132/76 08/04/23 08:58 Pulse Ox 97 08/04/23 08:58 O2 Del Method Room Air 08/04/23 08:58 Weight: Weight last 48 hrs Weight 211 lb Physical Exam Narrative: EXAM NARRATIVE: General: alert, NAD HEENT: conj clear, EOMI, PERRL, mmm, Neck: supple, no meningismus Heme: no cervical LAP Respiratory: Inspection: No visible deformity of the chest wall Palpation: Trachea is mildly deviated to the right, bilateral symmetric expansio n Percussion: Bilateral tympanic percussion note both anterior and posteriorly Auscultation: Bilateral clear to auscultation both anterior and posteriorly, no crackles wheezing or rhonchi Cardiovascular: rrr, nl s1s2, no mrg Abdomen: soft, nt, nd, no r/g, bs+ Extremities: pulses +, no edema, no c/c : no CVA tenderness Skin: intact, no rash MSK: no back or neck pain Neurologic: grossly intact A&P Assessment and plan (1) Hilar adenopathy: PET/CT showed mildly avid right hilar lymph node with SUV 3.4-patient being chronic smoker and history of colon cancer s/p resection in 2019-today we will do endobronchial ultrasound-guided surveillance and biopsies to rule out malignancy (2) Bronchial obstruction: Surveillance CT chest abdomen pelvis done with history of colon cancer in June 2023 showed increase soft tissue thickening and bronchial obstruction involving proximal right middle lobe bronchus-today she is scheduled for bronchoscopic inspection of airways and possible endobronchial biopsies if there is an obstruction. (3) Smoker: Smoking 2 ppd with hx of 1-2 ppd X 35 years, started at age 13. No plan to quit -Strongly counseled to quit smoking Coding Level of Care Code Acute Code for Chg Fwd Diagnoses Hilar adenopathy R59.0 Bronchial obstruction J98.09 Smoker F17.200 Time Spent (min) 18
[2023-08-04 09:18] LABS: Glucose Point of Care 86 mg/dL (70-110)
--- NOTE | 2023-08-04 09:25 | ANES.PREANE2 ---
Pre-Anesthetic Assessment Height/Weight: Height 1.75 m Weight 95.708 kg Temp Pulse Resp BP Pulse Ox O2 Del Method 97.1 F L 79 17 132/76 97 Room Air 08/04/23 08:58 08/04/23 08:58 08/04/23 08:58 08/04/23 08:58 08/04/23 08:58 08/04/23 08:58 Operation Date: 08/04/23 10:05 Proposed Procedures p Bronch with BAL, EBUS, 75915, [id number], 73923, 46570, 84016, 08630,40669, R91.1,R59.0(Not Applicable) - Ryan Santana MD s Ebus(Not Applicable) - Ryan Santana MD Familial anesthetic complications: None Was Beta Paramjit taken within 24 hours: N/A Was Clonidine taken within 24 hours: N/A Last intake: Intake Last Liquid Date 08/03/23 Last Liquid Time 22:00 Last Solid Date 08/03/23 Last Solid Time 19:30 Social Tobacco and No alcohol Exam alert, oriented x 3, clear to auscultation bilaterally and regular rate & rhythm Airway Mallampati: Class III Dentition: other (missing) Pulmonary Chronic Obstructive Pulmonary Disease GI Gastroesophageal Reflux Disease Metabolic Diabetes Mellitus Anesthetic Plan ASA status: 2 Anesthesia: General Risk of > 500 ml blood loss (7ml/kg in children): No Medications/Allergies Home Medications Medication Instructions Recorded Confirmed Last Taken Type acetaminophen 325 mg tablet 325 - 650 mg PO Q6H PRN Pain 09/24/20 08/04/23 07/31/23 History (Tylenol) cholecalciferol (vitamin D3) 250 250 mcg PO DAILY 09/22/22 08/04/23 08/03/23 History mcg (10,000 unit) capsule triamcinolone acetonide 0.1 % 1 applic topical BID PRN itching 09/22/22 08/04/23 08/03/23 Rx topical cream arms #30 grams albuterol sulfate 90 mcg/actuation 2 puff inhalation Q4H PRN 02/27/23 08/04/23 08/04/23 06:00 Rx aerosol inhaler bronchospasm #8.5 grams fenofibrate nanocrystallized 145 145 mg PO DAILY #30 tabs 02/27/23 08/04/23 08/03/23 Rx mg tablet (Tricor) pen needle, diabetic 33 gauge x #100 ea 04/20/23 08/04/23 07/31/23 Rx 5/32 budesonide-formoterol HFA 80 2 puff inhalation Q12H #10.2 grams 05/18/23 08/04/23 08/04/23 06:00 Rx mcg-4.5 mcg/actuation aerosol inhaler (Symbicort) gabapentin 300 mg capsule 300 mg PO TID pain #90 caps 05/18/23 08/04/23 08/04/23 06:00 Rx losartan 50 mg tablet (Cozaar) 50 mg PO DAILY #30 tabs 05/18/23 08/04/23 08/03/23 Rx pantoprazole 40 mg tablet,delayed 40 mg PO DAILY #30 tabs 05/18/23 08/04/23 08/03/23 Rx release (Protonix) venlafaxine 150 mg 150 mg PO DAILY #30 caps 05/18/23 08/04/23 08/04/23 06:00 Rx capsule,extended release 24 hr (Effexor XR) liraglutide 0.6 mg/0.1 mL (18 mg/3 1.8 mg (0.3 mL) SUBCUT DAILY #9 mL 06/22/23 08/04/23 08/02/23 Rx mL) subcutaneous pen injector (Victoza 3-Truman) topiramate 25 mg tablet (Topamax) 25 mg PO BID #60 tabs 06/22/23 08/04/23 08/03/23 Rx cyclobenzaprine 10 mg tablet 10 mg PO BID #60 tabs 07/21/23 08/04/23 08/04/23 06:00 Rx Allergies Allergy/AdvReac Type Severity Reaction Status Date / Time celecoxib [From Celebrex] AdvReac ADR-Gastrointestinal Verified 08/04/23 09:03 Upset ibuprofen AdvReac vomiting Verified 08/04/23 09:03 [facility] Anesthesia Medical History Anxiety and depression Cancer of sigmoid colon T3N0M0 in June 19, 2020 Chronic migraine without aura, intractable, with status migrainosus COPD (chronic obstructive pulmonary disease) Essential (primary) hypertension Hyperlipidemia, mixed OA (osteoarthritis of spine) Obesity (BMI 30-39.9) Osteoarthritis of spine at multiple levels Surgical History History of section one time History of hysterectomy History of laparoscopy For adhesion History of tubal ligation Status post colonoscopy (07/01/21) 06/19/20 Repeat in 3 years Status post laparoscopic cholecystectomy (09/19/20) Status post laparoscopic-assisted sigmoidectomy (06/21/20) Family History Other Arthritis CAD (coronary artery disease) Cancer Diabetes Hypertension Stroke Denies family history of Anesthesia complication Bleeding disorder Social History Smoking and tobacco status: current every day smoker cigarettes Packs smoked per day: 2 Years cigarettes smoked: 35 [ Other cigarette details: started at age 13] Second hand smoke exposure: Yes Smoking risk assessment/counseling performed?: Yes Alcohol intake: current Alcohol intake frequency: holidays/special occasions only Desire information about alcohol rehabilitation?: No Counseling given: No Substance/Drug Use: never Desire information about substance/drug rehabilitation?: No Counseling given: No Adopted: No Caregiver/support person: No Lives independently: Yes Household members: none Housing: House Marital status: Single Number of children: 3 service: No Current occupational status: employed Current occupation: [employer] Do you think of yourself as: Straight/Heterosexual Current gender identity: Female Data Anesthesia Cardiac Studies: No Data to Display
[2023-08-04] MEDS: sodium chloride 0.9% 1,000 ML 30 ML IV (09:44)
[2023-08-04] MEDS: lidocaine 1% INJ 10 mL (per mL) XX (10:05)
--- NOTE | 2023-08-04 11:21 | PM.OP ---
Operative Report Date of procedure: August 04, 2023 Pre-op diagnosis: Right middle lobe bronchial obstruction and PET active hilar lymph node-rule out malignancy Post-op diagnosis: No malignancy seen on biopsies Procedure done: 70454 Dx Bronchoscope w/BAL 00113 Dx Bronchoscopy w/Bronchial or Endobronchial biopsy(s), single or multiple sites 62279 Bronchoscopy w/ therapeutic aspiration of the tracheobronchial tree (clearance of airway secretions, removal of mucus plugs) 45905 EBUS Sampling 1/2 nodes 15279 EBUS Diag or Interven Peripheral lesion (radial EBUS) Surgeon: Ryan Santana MD Brief History: Ms. Oxana Rock is 48 year old female with past medical history of colon cancer in june 2020; s/p resection in june 2020; :? 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 She was referred to [facility] and was told to manage expectantly and no adjuvanct chemo was offered. As part of survelliance she had CT chest abd pelvis in january 2023 which showed ?RIGHT upper lobe 5 mm nodule. Follow-up chest CT in June 25 2023 showed No increase in size of the 5 mm nodule in the right upper lobe. Recommend continued CT surveillance. Increasing soft tissue thickening and bronchial obstruction involving the proximal right middle lobe bronchus. Subsequent PET CT scan 07/25/2023: Showed?similar truncation of right middle lobe bronchus possibly related to mildly radiotracer avid right hilar lymph node with SUV 3.4.? This uptake may be inflammatory or atypical infectious in etiology.A neoplastic etiology cannot be entirely excluded. recommended evaluation by pulmonology for possible bronchoscopy to rule out malignancy Hence she is here today for bronchoscopic inspection of airways as well as endobronchial biopsies if there is any obstructive lesion; followed by endobronchial ultrasound-guided biopsy of hilar/mediastinal lymph nodes. Procedure: 19546 Dx Bronchoscope w/BAL 90696 Dx Bronchoscopy w/Bronchial or Endobronchial biopsy(s), single or multiple sites 47403 Bronchoscopy w/ therapeutic aspiration of the tracheobronchial tree (clearance of airway secretions, removal of mucus plugs) 35987 EBUS Sampling 1/2 nodes 91055 EBUS Diag or Interven Peripheral lesion (radial EBUS) Indication: PET active hilar lymph nodes and right middle lobe obstruction-rule out Malignancy Anesthesia: General anesthesia. Local anesthesia: The jean claude in the right and left mainstem bronchi were anesthetized with 1% lidocaine, 3 mL. Description of the procedure: The procedure was explained to the patient and the consent was obtained. The patient was brought to the OR. The patient underwent induction for general anesthesia and endotracheal tube was placed. The bronchoscope was advanced through the ET tube. The distal trachea was visualized. Tracheal mucosa appeared normal, no endotracheal lesion was seen. The jean claude was sharp. 1 mL each of 1% lidocaine was instilled in the trachea, right mainstem bronchus, right middle lobe, and left mainstem bronchi for local anesthesia. In a systematic manner bilateral bronchial tree was then examined. The bronchoscope was advanced into the left mainstem bronchus. There is a endobronchial lesion which is completely occluding left lower lobe airway. It is friable and started to bleed as soon as bronchoscope touched the surface. The left upper lobe, and lingula were examined up to the third subsegmental level and no abnormalities were identified. There were some normal variance noted. Mucosa of left upper lobe and lingula appeared normal with no endobronchial lesion. There were clear secretions which were suctioned right away(48303). The bronchoscope was then introduced into the right mainstem bronchus. The right upper lobe, right middle lobe and right lower lobe bronchi were examined up to the third subsegmental level. The right middle lobe is completely obstructed with what appeared to be healed granulation tissue..There were clear secretions in other subsegments which were suctioned right away(49577). With the help of forceps-several endobronchial biopsies were taken from the mass in the distal left mainstem occluding right middle lobe airway.(02154). After taking 5 pieces-there appeared to be an opening and then noted surge of thick mucus coming out of the airway. At this point bronchoalveolar lavage was taken from right middle lobe. Surprisingly there was no significant bleeding noted. Bronchoscope was retracted and Endobronchial Ultrasound (EBUS)(49964 ) was introduced. Identified a lymph nodes in station 12 R and 4R. Using [id number] were taken from station 12 R and 4R (45906); there was some evidence of bleeding which is controlled with instillation of cold saline. After making sure there is no active bleeding, bronchoscope retracted and procedure terminated. Samples: A. Endobronchial biopsies from right middle lobe bronchus occluding right middle lobe (36181). 1 pass was used to make a slide for rapid onsite evaluation; pathology reported not seeing any malignancy; rest of the material was placed in formalin for histopathology 2. Bronchoalveolar lavage (14371) was performed after wedging the bronchoscope at the entrance of occluded right middle lobe. 50 mL of saline was instilled, fluid return was 25 mL. Bronchoalveolar lavage specimen was sent for cell count and differential, gram stain and culture, cytology B. EBUS guided Fine-needle aspiration biopsies were taken from station 12 R and 4R (50428) 1. Total of 4 passes were made using needle aspiration(06283) from station 12R; 1 pass was used to make a slide for rapid onsite evaluation; pathology reported not seeing any malignancy; rest of the material was placed in formalin for histopathology 2. Total of 4 passes were made using needle aspiration(73767) from station 4R; 1 pass was used to make a slide for rapid onsite evaluation; pathology reported not seeing any malignancy; rest of the material was placed in formalin for histopathology Complications: None.The patient was extubated and brought to the PACU in stable condition. Disposition: Patient can be discharged home in stable condition. Pt and family are aware that I am going to call them to update final biopsy results once available. Related Problem List Diagnoses (1) Bronchial obstruction: (2) Hilar adenopathy:
--- NOTE | 2023-08-04 11:23 | XR_ITS ---
WS: [id number] PORTABLE CHEST HISTORY: post ebus COMPARISON: 01/06/[address] 06/25/2023 Chronic emphysema. No pulmonary mass or pneumonia. No pulmonary hemorrhage. No pleural effusion or pn eumothorax. Cardiac size: Normal. Mediastinum/Aorta: Normal mediastinum. No osseous abnormality seen. IMPRESSION: Chronic emphysema. No pneumothorax.
--- NOTE | 2023-08-04 11:50 | ANE.PACU2 ---
Inpatient post-anesthesia follow up: Airway intact: Yes Vital signs: Temperature 97.3 F Pulse Rate 73 Respiratory Rate 17 Blood Pressure 95/67 Pulse Oximetry 98 Oxygen Delivery Me thod Room Air Oxygen Flow Rate Fraction of Inspir ed Oxygen Hydration adequate: Yes Nausea and vomiting: No Pain level: 1 Mental status: Baseline
== END 2023-08-04 12:39 | disposition home or self-care (01) ==
PROVIDERS: PCP Nurse Practitioner; Visit Provider Internal Medicine Pulmonary Disease
PROC: (CPT 31624; principal; 2023-08-04 09:55)
PROC: BB4BZZZ Ultrasonography of Pleura (ICD-10-PCS; 2023-08-04 09:55)
DX: R59.0 Localized enlarged lymph nodes (principal); J98.09 Other diseases of bronchus, not elsewhere classified; F17.200 Nicotine dependence, unspecified, uncomplicated; J44.9 Chronic obstructive pulmonary disease, unspecified; Z85.038 Personal history of other malignant neoplasm of large intestine; F17.210 Nicotine dependence, cigarettes, uncomplicated; I10 Essential (primary) hypertension; E78.2 Mixed hyperlipidemia
CPT/HCPCS: 31624; 31625; 31645; 31652; 31654; 36416; 71045; 80503; 82962; 87015; 87070; 87116; 87205; 87206; 87801; 88112; 88305; 88342; J1100; J2371; J2405; J2704; J3010; J3490; J7030

== ENCOUNTER → 2023-08-17 10:12 | Outpatient (BNVA) | payer BC, MEDICAID, SELFPAY | PROVIDERS: PCP Nurse Practitioner; Visit Provider Nurse Practitioner | DX: R20.2 Paresthesia of skin (principal); R52 Pain, unspecified | CPT/HCPCS: 82607 ==

== ENCOUNTER → 2023-08-31 09:09 | Outpatient (BNVA) | payer BC, MEDICAID, SELFPAY | PROVIDERS: PCP Nurse Practitioner; Visit Provider Podiatrist Foot & Ankle Surgery | DX: G62.9 Polyneuropathy, unspecified | CPT/HCPCS: 77077 ==

== ENCOUNTER → 2023-10-14 11:06 | Outpatient (BNVA) | payer BC, MEDICAID, SELFPAY | PROVIDERS: PCP Nurse Practitioner; Visit Provider Psychiatry & Neurology Neurology | DX: G62.9 Polyneuropathy, unspecified (principal); R20.2 Paresthesia of skin; R52 Pain, unspecified; R20.0 Anesthesia of skin; L98.9 Disorder of the skin and subcutaneous tissue, unspecified | CPT/HCPCS: 36415; 82306; 82525; 83735; 84155; 84165; 84207; 84439; 84443; 84481; 86334; 86592; 86780 ==

== ENCOUNTER 2023-10-15 12:35 | Outpatient (CLI) | payer BC, MEDICAID, SELFPAY ==
[2023-10-15 13:00] VITALS: PULSE 95; RESP 18; O2SAT 100
[2023-10-15] MEDS: albuterol 2.5 mg/3 mL Neb INHALATION (13:03)
[2023-10-15 13:05] VITALS: PULSE 92
== END 2023-10-15 12:36 | disposition home or self-care (01) ==
LOC: RT 12:35
PROVIDERS: PCP Nurse Practitioner; Visit Provider Internal Medicine Pulmonary Disease
DX: R06.02 Shortness of breath (principal); Z72.0 Tobacco use; R94.2 Abnormal results of pulmonary function studies
CPT/HCPCS: 94060; 94618; 94726; 94729

== ENCOUNTER 2023-11-02 08:27 | Outpatient (CLI) | payer BC, MEDICAID, SELFPAY ==
--- NOTE | 2023-11-02 09:00 | CT_ITS ---
WS: [id number] CT scan of the chest without IV contrast, additional two-dimensional coronal and sagittal reconstruct ion was performed. 11/02/2023 Clinical Data: 3 month f/u Comparison: CT chest, 06/25/2023 DLP: 432.[address] scans at [facility] use at least one of these dose optimization techniques: automated e xposure control; mA and/or kV adjustment per patient size (includes targeted exams where dose is matc hed to clinical indication); or iterative reconstruction. Findings: The 0.5 cm right upper lobe nodule seen best on axial image 19 of 67 has not changed in size or confi guration. There are no other nodules. The narrowing of the right middle lobe bronchus remains the dajuan e. No masses or effusions are seen. The heart size is normal with no pericardial effusion. There are hil ar and mediastinal calcifications. The trachea bifurcates normally into the bronchi. The pulmonary ar terial system and thoracic aorta demonstrate no abnormalities or dilatations. There is no axillary or significant mediastinal adenopathy. The upper abdomen shows clips in the gallbladder fossa from a cholecystectomy. Impression: 1. No change in right upper lobe nodule. 2. No change in slight narrowing of right middle lobe bronchus. 3. Recommend follow-up CT chest in 12 months.
== END 2023-11-02 08:28 | disposition home or self-care (01) ==
LOC: RAD 08:27
PROVIDERS: PCP Nurse Practitioner; Visit Provider Internal Medicine Pulmonary Disease
DX: R91.1 Solitary pulmonary nodule (principal); J98.09 Other diseases of bronchus, not elsewhere classified
CPT/HCPCS: 71250; 82607

== ENCOUNTER → 2023-12-10 15:34 | Outpatient (BNVA) | payer BC, MEDICAID, SELFPAY | PROVIDERS: PCP Nurse Practitioner; Visit Provider Orthopaedic Surgery | DX: M48.062 Spinal stenosis, lumbar region with neurogenic claudication; M79.605 Pain in left leg; M79.604 Pain in right leg | CPT/HCPCS: 72110 ==

== ENCOUNTER 2023-12-31 08:20 | Outpatient (CLI) | payer BC, MEDICAID, SELFPAY ==
--- NOTE | 2023-12-31 08:45 | MR_ITS ---
WS: [id number] MRI LUMBAR SPINE NONCONTRAST TECHNIQUE: Sagittal T1, T2 and STIR imaging. Axial T1 and T2 imaging. CLINICAL INFORMATION: back pain COMPARISON: MRI 2012 FINDINGS: Mild lumbar curve. No acute compression. No high-grade central canal stenosis. L1-L2: Mild facet arthropathy. Spinal canal and foramen are patent. L2-L3: Mild facet arthropathy. Spinal canal and foramen are patent. L3-L4: Small bilateral foraminal protrusions slightly contact the exiting L3 nerve roots. Spinal verito l is patent. Moderate facet arthropathy. L4-L5: Tiny RIGHT foraminal protrusion. Mild RIGHT foraminal narrowing with slight contact of the exi ting RIGHT L4 nerve root. LEFT foramen is patent. Moderate facet arthropathy. Spinal canal is patent. L5-S1: Minimal annular bulging. Moderate facet arthropathy. Spinal canal and foramen are patent. Visualized pelvic bony structures: Normal. Paravertebral soft tissues: Normal. IMPRESSION: 1. Mild lumbar curve. No acute compression. No high-grade central canal stenosis. 2. Small progressed RIGHT foraminal protrusion L4-5 slightly contacts the exiting RIGHT L4 nerve jayden t. Recommend correlation for RIGHT L4 nerve root symptoms. 3. Tiny bilateral foraminal protrusions L3-4 with slight contact of the exiting L3 nerve roots. 4. Moderate facet arthropathy worse at L3-L5.
== END 2023-12-31 08:21 | disposition home or self-care (01) ==
LOC: RAD 08:21
PROVIDERS: PCP Nurse Practitioner; Visit Provider Orthopaedic Surgery
DX: M51.26 Other intervertebral disc displacement, lumbar region (principal); M47.816 Spondylosis without myelopathy or radiculopathy, lumbar region
CPT/HCPCS: 72148

== ENCOUNTER → 2024-01-05 09:54 | Outpatient (BNVA) | payer BC, MEDICAID, SELFPAY | PROVIDERS: PCP Nurse Practitioner; Visit Provider Nurse Practitioner | DX: I10 Essential (primary) hypertension (principal); E55.9 Vitamin D deficiency, unspecified | CPT/HCPCS: 80053; 80061; 82306; 82607; 84443; 85025 ==

== ENCOUNTER 2024-01-26 12:10 | Outpatient (CLI) | payer BC, MEDICAID, SELFPAY ==
[2024-01-30 16:19] LABS: Vitamin B6 Plasma 35.6 ng/mL (2.1-21.7)
== END 2024-01-26 12:11 | disposition home or self-care (01) ==
LOC: LAB 12:13
PROVIDERS: PCP Nurse Practitioner; Visit Provider Psychiatry & Neurology Neurology
DX: G62.9 Polyneuropathy, unspecified (principal); R52 Pain, unspecified
CPT/HCPCS: 36415; 84207

== ENCOUNTER 2024-02-02 09:23 | Outpatient (CLI) | payer BC, MEDICAID, SELFPAY ==
--- NOTE | 2024-02-02 09:30 | MM_ITS ---
WS: [id number] Bilateral screening 3D tomosynthesis digital mammogram, 02/02/2024 Clinical Data: Z12.31 - Encounter for screening mammogram for malignant ... Comparison: 03/13/2022 Findings: The breast parenchymal pattern shows fibroglandular tissue. No spiculated masses or clustered calcifi cations are seen. There are no secondary signs of carcinoma. Impression: 1. Negative bilateral mammogram unchanged. 2. Recommend annual screening mammograms. MM/[place] [id number] BIRADS: 1-Negative FOLLOW UP: 1 Year Follow-up The CAD roving or yarn color checker was used.
== END 2024-02-02 09:24 | disposition home or self-care (01) ==
LOC: MOBLMAM 09:27
PROVIDERS: PCP Nurse Practitioner; Visit Provider Nurse Practitioner
DX: Z12.31 Encounter for screening mammogram for malignant neoplasm of breast (principal)
CPT/HCPCS: 77063; 77067

== ENCOUNTER → 2024-02-09 08:00 | Outpatient (BNVA) | payer BC, MEDICAID, SELFPAY | PROVIDERS: PCP Nurse Practitioner; Visit Provider Orthopaedic Surgery | DX: M48.062 Spinal stenosis, lumbar region with neurogenic claudication (principal) | CPT/HCPCS: 72100 ==

== ENCOUNTER → 2024-02-29 10:43 | Outpatient (BNVA) | payer BC, MEDICAID, SELFPAY | PROVIDERS: PCP Nurse Practitioner; Visit Provider Nurse Practitioner | DX: M25.50 Pain in unspecified joint (principal); I10 Essential (primary) hypertension; E78.2 Mixed hyperlipidemia | CPT/HCPCS: 82785; 85651; 86001; 86003; 86140; 86431 ==

== ENCOUNTER 2024-03-07 07:14 | Outpatient (CLI) | payer BC, MEDICAID, SELFPAY ==
--- NOTE | 2024-03-07 08:00 | USCV_ITS ---
Oxana Rock Age: 48 Gender: F : 1975 Exam Date: 03/07/2024 08:24 Ordering Phys: Natalie Eric Technologist: REYNOLD Exam Location: [facility] [place] [facility] [place] Indication: HTN, edema BP: 130 / 90 HR: 163 Rhythm: Sinus Technical Quality: Good MEASUREMENTS (Male / Female) Normal Values 2D ECHO LV Diastolic Diameter PLAX 4.7 cm 4.2 - 5.9 / 3.9 - 5.3 cm IVS Diastolic Thickness 1.0 cm 0.6 - 1.0 / 0.6 - 0.9 cm IVS Systolic Thickness 1.4 cm LVPW Diastolic Thickness 0.7 cm 0.6 - 1.0 / 0.6 - 0.9 cm LVPW Systolic Thickness 1.3 cm LVOT Diameter 2.1 cm LV Ejection Fraction 2D Teich 65.3 % LV Ejection Fraction MOD 2C 62.2 % LV Ejection Fraction 2C AL 63.4 % LA Diameter 1.3 cm RA Systolic Volume 4C AL 15.4 ml RA Systolic Volume 4C MOD 14.6 ml LA Sys Volume AL 27.2 cm cubed LA Sys Volume Index AL 12.1 cm cubed/m squared Aorta at Sinotubular Diameter 2.3 cm IVC Diameter 1.5 cm M-MODE LA Ao Ratio MM 0.8 AV Cusp Separation MM 1.4 cm DOPPLER AV Peak Velocity 142.0 cm/s LVOT Peak Velocity 103.0 cm/s AV Area Cont Eq vti 2.8 cm squared AV Area Cont Eq pk 2.6 cm squared MV Peak Velocity 85.0 cm/s MV Area PHT 3.2 cm squared Mitral E to A Ratio 1.5 TV Peak Velocity 136.3 cm/s TR Peak Velocity 219.0 cm/s TR Peak Gradient 19.2 mmHg TR Mean Velocity 104.0 cm/s TR Mean Gradient 6.4 mmHg TR Velocity Time Integral 30.3 cm TV Peak E Velocity 74.0 cm/s Right Atrial Pressure 3.0 mmHg Pulmonary Artery Systolic Pressu 22.2 mmHg PV Peak Velocity 96.0 cm/s FINDINGS Left Ventricle Normal left ventricular size and systolic function, EF 65%.no regional wall motion abnormalities. Right Ventricle The right ventricle is normal in size and function. Right Atrium The right atrium is normal in size. Left Atrium The left atrium is normal in size. Mitral Valve No gross abnormalities noted Aortic Valve Thickened aortic valve. Tricuspid Valve Trace tricuspid valve regurgitation. Pulmonic Valve No gross abnormalities noted Pericardium Normal pericardium without effusion. Aorta Normal ascending aorta dimension. IVC The inferior vena cava appears normal. CONCLUSIONS Normal left ventricular size and systolic function, EF 65%.no regional wall motion abnormalities. Normal cardiac chamber sizes Trace tricuspid valve regurgitation. There is no pericardial effusion. There are no intracardiac masses. No similar previous studies are available for comparison Dr Kelvin Houser MD FAC (Electronically Signed) Final Date: 12 March 2024 20:47 S
== END 2024-03-07 07:15 | disposition home or self-care (01) ==
LOC: RAD 07:14
PROVIDERS: PCP Nurse Practitioner; Visit Provider Nurse Practitioner
DX: I10 Essential (primary) hypertension (principal); E78.2 Mixed hyperlipidemia; M25.50 Pain in unspecified joint
CPT/HCPCS: 93306

== ENCOUNTER 2024-03-21 14:42 | Emergency (ER) | payer BC, MEDICAID, SELFPAY ==
[2024-03-21] VITALS (21 sets, daily range): BP systolic 115–127; BP diastolic 80–91; PULSE 79–95; RESP 13–24; TEMP 36.6; O2SAT 95–99; BMI 33.2
--- NOTE | 2024-03-21 15:09 | ECG_ITS ---
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 Measurements Intervals Guild Rate: 91 P: 44 PA: 144 QRS: -20 QRSD: 85 T: 26 QT: 342 QTc: 421 Interpretive Statements SINUS RHYTHM Compared to ECG 09/24/2020 12:47:15 No significant changes Electronically Signed On 03-21-2024 23:22:02 CDT by Efra Oquendo M.D. [email or web address]
[2024-03-21 15:27] LABS: Basophils # 0.1 10^3/uL (0.0-0.1); Basophils % 0.6 %; Eosinophils # 0.2 10^3/uL (0.0-0.8); Eosinophils % 2.2 %; Hematocrit 40.8 % (36-47); Lymphocytes % 30.3 %; Mean Corpuscular HGB Conc 33.8 g/dL (30-55); Mean Corpuscular Hemoglobin 29.6 pg (27-33); Mean Corpuscular Volume 87.4 fl (85-98); Mean Platelet Volume 9.9 fL (7.4-10.4); Monocytes % 10.4 %; Neutrophils # 5.61 10^3/uL (1.8-7.7); Neutrophils % 56.2 %; Nucleated Red Blood Cells % 0 %; Platelet Count 319 10^3/cmm (157-399); Red Blood Count 4.67 10^6/uL (3.85-5.65); White Blood Count 9.99 10^3/uL (3.29-11.43)
[2024-03-21 15:28] LABS: Add Urine Microscopic? NO; Charge for UA Resulting for Rev
--- NOTE | 2024-03-21 15:28 | ED_ITS ---
HPI - Abdominal Pain 2 General: Chief Complaint: Abdominal Pain Stated Complaint: right side pain, sob Time Seen by Provider: 03/21/24 15:01 Source: patient Mode of arrival: ambulatory History of Present Illness: 48-year-old female presents emergency ro om complaining of abdominal pain. Refers most of her pain to her right flank states she feels like somebody is tearing into her side. She denies any fever sweats chills manage Penelope melena hematemesis cough cramps no hematuria. She has a history of previous cholecystectomy she also had a history of a colon resection for colon cancer did not require any chemo or radiation was limited to the mucosa evidently. This was back in 2021. She is not had any vomiting or diarrhea with this. Began at about 1030 this morning and persist been persistent radiating into her back. MD elicited complaint: abdominal pain Onset (ago): hour(s) Pain Consistency: constant Location: R flank Severity: moderate Quality: sharp Radiation: back Exacerbating factors: nothing Relieving factors: nothing Associated Symptoms: Denies anorexia, belching, bloating, change in bowel habits, change in stool character, chills, coffee ground emesis, constipation, GI cramping, diarrhea, dyspepsia, dysuria, excessive flatus, fever(s), heartburn, hematochezia, hematuria, hematemesis, fecal incontinence, loose stools, melena, nausea, poor appetite, syncope and vomiting Review of Systems 2 Const: Denies: fever(s) or chills Card: Denies: chest pain or syncope Resp: Denies: dyspnea GI: Denies: abdominal pain, nausea, vomiting, hematemesis, coffee ground emesis, heartburn, diarrhea, constipation, bloating, GI cramping, belching, excessive flatus, fecal incontinence, change in bowel habits, change in stool character, hematochezia or melena : Denies: dysuria, urinary frequency, urinary urgency or hematuria Musc: Denies: neck pain or back pain Skin/Breast: Denies: rash PFSH ED 2 PFSH: Medical History Myofascial pain syndrome Obesity (BMI 30-39.9) Hyperlipidemia, mixed COPD (chronic obstructive pulmonary disease) OA (osteoarthritis of spine) Osteoarthritis of spine at multiple levels Cancer of sigmoid colon [id number] in June 19, 2020 Chronic migraine without aura, intractable, with status migrainosus Essential (primary) hypertension Anxiety and depression Surgical History Status post laparoscopic cholecystectomy (09/19/20) Status post colonoscopy (07/01/21) 06/19/20 Repeat in 3 years Status post laparoscopic-assisted sigmoidectomy (06/21/20) History of laparoscopy For adhesion History of section one time History of tubal ligation History of hysterectomy Family History Other Arthritis CAD (coronary artery disease) Cancer Diabetes Hypertension Stroke Denies family history of Anesthesia complication Bleeding disorder Social History Smoking and tobacco/nicotine status: current every day tobacco/nicotine user cigarettes Packs smoked per day: 2 Years cigarettes smoked: 35 [ Other cigarette details: started at age 13] Second hand smoke exposure: Yes Alcohol intake: current Alcohol intake frequency: holidays/special occasions only Substance/Drug Use: never Adopted: No Caregiver/support person: No Lives independently: Yes Household members: none Housing: House Marital status: Single Number of children: 3 service: No Current occupational status: employed Current occupation: [email or web address] Do you think of yourself as: Straight/Heterosexual Current gender identity: Female Physical Exam 2 Const: GENERAL APPEARANCE: cooperative and comfortable O RIENTATION/CONSCIOUSNESS: Yes awake, Yes oriented to person, Yes oriented to place and Yes oriented to time HENMT: COMMON NORMALS: normocephalic, atraumatic and hearing grossly normal bilaterally HEAD & SCALP: normocephalic and atraumatic Resp: COMMON NORMALS: normal respiratory effort, No retractions, No use of accessory muscles and clear to auscultation bilaterally AUSCULTATION: clear to auscultation bilaterally Cardio: COMMON NORMALS: regular rate, regular rhythm and No murmurs present (Cardio) RATE: regular rate RHYTHM: regular rhythm GI: COMMON NORMALS: Soft to palpation and No hepatosplenomegaly present A USCULTATION: Yes normoactive bowel sounds PALPATION: Yes Soft to palpation, No Tenderness to palpation present (GI), No Guarding due to palpation present (GI) and Yes No hepatosplenomegaly present : BLADDER/KIDNEY EXAM: Yes CVA tenderness Back/Pelvis: GENERAL BACK: Yes CVA tenderness CVA tenderness: right Extremity: COMMON NORMALS: normal to inspection, capillary refill normal, no clubbing, cyanosis or edema, no calf tenderness and no pedal edema Neuro: SENSORIUM/ORIENTATION: Yes oriented to person, Yes oriented to place and Yes oriented to time Skin: COMMON NORMALS: no rashes or lesions noted GENERAL SKIN EXAM: no rashes or lesions noted Course 2 Vital Signs: Vital signs: Vital Signs Temperature 97.8 F 03/21/24 14:47 Pulse Rate 88 03/21/24 16:00 Respiratory Rate 19 H 03/21/24 16:00 Blood Pressure 127/87 03/21/24 16:00 Pulse Oximetry 97 03/21/24 16:00 Oxygen Delivery Me thod Room Air 03/21/24 14:47 MDM - Abdominal Pain Medical Decision Making Laboratory tests are unremarkable did do a CT she was still complaining of severe pain there is no sign of cystitis on the urine no sign of hydronephrosis or nephrolithiasis on the CT CT is otherwise unremarkable for acute intra- abdominal pathology there is no sign of varicella on the skin.. If there is no improvement recheck with your primary care doctor did recommend clear liquids for the next 24 to 48 hours Differential Diagnosis Likely abdominal pain Medical Records I reviewed the patient's medical records. Lab Data I reviewed the patient's lab results. 03/21/24 15:10 03/21/24 15:10 Labs/Radiology: Radiology Impressions Abdomen/Pelvis CT 03/21/24 15:45 IMPRESSION: 1. No evidence of acute abnormality in the abdomen or pelvis within limitations of a noncontrast exam. Laboratory Results WBC 9.99 10^3/uL (3.29-11.43) 03/21/24 15:10 RBC 4.67 10^6/uL (3.85-5.65) 03/21/24 15:10 Hgb 13.80 g/dL (11.27-16.99) 03/21/24 15:10 Hct 40.8 % (36-47) 03/21/24 15:10 MCV 87.4 fl (85-98) 03/21/24 15:10 MCH 29.6 pg (27-33) 03/21/24 15:10 MCHC 33.8 g/dL (30-55) 03/21/24 15:10 RDW 14.0 % (12.1-15.1) 03/21/24 15:10 Plt Count 319 10^3/cmm (157-399) 03/21/24 15:10 MPV 9.9 fL (7.4-10.4) 03/21/24 15:10 Neut % (Auto) 56.2 % 03/21/24 15:10 Lymph % (Auto) 30.3 % 03/21/24 15:10 [place] % (Auto) 10.4 % 03/21/24 15:10 Eos % (Auto) 2.2 % 03/21/24 15:10 Baso % (Auto) 0.6 % 03/21/24 15:10 Neut # (Auto) 5.61 10^3/uL (1.8-7.7) 03/21/24 15:10 Lymph # (Auto) 3.0 10^3/uL (0.8-4.8) 03/21/24 15:10 [place] # (Auto) 1.0 10^3/uL (0.2-0.9) H 03/21/24 15:10 Eos # (Auto) 0.2 10^3/uL (0.0-0.8) 03/21/24 15:10 Baso # (Auto) 0.1 10^3/uL (0.0-0.1) 03/21/24 15:10 Nucleated RBC % (auto) 0 % 03/21/24 15:10 Nucleated RBCs # 0.0 /100WBC 03/21/24 15:10 Sodium 136 mmol/L (136-145) 03/21/24 15:10 Potassium 3.9 mmol/L (3.5-5.1) 03/21/24 15:10 Chloride 102 mmol/L (98-107) 03/21/24 15:10 Carbon Dioxide 21 mmol/L (22-29) L 03/21/24 15:10 Anion Gap 16.9 (5-19) 03/21/24 15:10 BUN 14 mg/dL (6-20) 03/21/24 15:10 Creatinine 0.8 mg/dL (0.5-0.9) 03/21/24 15:10 GFR Calculation 75.9 mL/min (90-130) L 03/21/24 15:10 Glucose 82 mg/dL (65-115) 03/21/24 15:10 Calculated Osmolality 282 mOsm/kg (285-295) L 03/21/24 15:10 Calcium 9.5 mg/dL (8.5-10.5) 03/21/24 15:10 Total Bilirubin 0.2 mg/dL (0.15-1.2) 03/21/24 15:10 AST 22 U/L (0-32) 03/21/24 15:10 ALT 25 U/L (0-33) 03/21/24 15:10 Alkaline Phosphatase 139 U/L (35-105) H 03/21/24 15:10 Total Protein 7.5 g/dL (6.6-8.7) 03/21/24 15:10 Albumin 4.2 g/dL (3.5-5.2) 03/21/24 15:10 Globulin 3.3 g/dL (1.3-4.6) 03/21/24 15:10 Lipase 25 U/L (13-60) 03/21/24 15:10 Urine Color Yellow (Yellow) 03/21/24 15:23 Urine Appearance Clear (CLEAR) 03/21/24 15:23 Urine pH 7 (5-7) 03/21/24 15:23 Ur Specific [place] 1.005 (1.005-1.030) 03/21/24 15:23 Urine Protein Neg (Negative) 03/21/24 15:23 Urine Glucose (UA) Norm (Normal) 03/21/24 15:23 Urine Ketones Negative (Negative) 03/21/24 15:23 Urine Blood Neg (Negative) 03/21/24 15:23 Urine Nitrate Negative (Negative) 03/21/24 15:23 Urine Bilirubin Neg (Negative) 03/21/24 15:23 Urine Urobilinogen Neg mg/dL (Negative) 03/21/24 15:23 Ur Leukocyte Esterase Negative (Negative) 03/21/24 15:23 All radiology interpretation(s) finalized by discharge Discharge Plan Discharge Patient Disposition: Home Clinical Impression: Abdominal pain Condition: Stable Prescriptions: New promethazine 25 mg tablet 25 mg PO Q6H PRN (Reason: nausea and vomiting) Qty: 20 0RF No Action cholecalciferol (vitamin D3) 250 mcg (10,000 unit) capsule 250 mcg PO DAILY Spiriva Respimat 1.25 mcg/actuation mist 2 puff inhalation DAILY Qty: 4 6RF losartan [Cozaar] 50 mg tablet 50 mg PO DAILY Qty: 30 2RF gabapentin 300 mg capsule 300 mg PO TID Qty: 90 2RF fenofibrate nanocrystallized [Tricor] 145 mg tablet 145 mg PO DAILY Qty: 30 2RF Hold Instructions: Patient No Longer Taking albuterol sulfate 90 mcg/actuation HFA aerosol inhaler 2 puff inhalation Q4H PRN (Reason: bronchospasm) Qty: 8.5 2RF methocarbamol 750 mg tablet 750 mg PO .every 12 hours Qty: 60 2RF Dulera 100-5 mcg/actuation HFA aerosol inhaler 2 puff inhalation BID Qty: 13 2RF olanzapine [Zyprexa] 5 mg tablet 5 mg PO DAILY Qty: 30 2RF pantoprazole [Protonix] 40 mg tablet,delayed release (DR/EC) 40 mg PO DAILY Qty: 30 2RF topiramate [Topamax] 100 mg tablet 100 mg PO BID Qty: 60 2RF venlafaxine [Effexor XR] 150 mg capsule,extended release 24hr 150 mg PO DAILY Qty: 30 2RF furosemide [Lasix] 20 mg tablet 20 mg PO QAM Qty: 30 2RF acetaminophen [Tylenol] 325 mg Tablet 325 - 650 mg PO Q6H PRN (Reason: Pain) Discharge Orders: Discharge ED (Routine); Ordered 03/21/24 Ordered By: Kaveh Serrano Referrals: Natalie Eric, [facility] [Primary Care Provider] - Discharge Diet: Clear Liquid Discharge Activity: Increase activity as tolerated Patient Instructions: Abdominal Pain (ED), Opioid Safety, Pain Management Activity Restrictions/Additional Instructions: Thank you for choosing [facility] for your healthcare needs today. Please realize this is an emergency room and that we are providing you with a medical screening exam and this may not be complete and all inclusive of all the testing and or work up that you may need to determine your ailment or severity of your illness. It is very important that you follow up as instructed or that you return to the Emergency Department should you have concerns or if your condition changes or worsens in any way. You were seen today with complaints of abdominal pain and right flank pain. CT did not show any significant abnormalities your white count was normal your electrolytes and liver functions kidney function were all also normal. No emergent cause of your pain was noted on exam or imaging. Recommend clear liquid diet for the next 24 to 48 hours and advance as tolerated if symptoms persist follow-up with your primary care doctor for further evaluation Coding Level of Care Code ED Post Closing Specialist for Justine Mullins
[2024-03-21 15:31] LABS: Bilirubin Urine Neg (Negative); Blood Urine Neg (Negative); Glucose Urine UA Norm (Normal); Ketones Urine Negative (Negative); Leukocyte Esterase Urine Negative (Negative); Nitrate Urine Negative (Negative); Protein Urine Neg (Negative); Specific Gravity, Urine 1.005 (1.005-1.030); Urine Appearance Clear (CLEAR); Urine Color Yellow (Yellow); Urobilinogen Urine Neg (Negative); pH Urine 7 (5-7)
[2024-03-21] MEDS: sodium chloride 0.9% 1,000 ML 999 ML IV (15:32)
[2024-03-21 15:37] LABS: Alanine Aminotransferase 25 U/L (0-33); Albumin Level 4.2 g/dL (3.5-5.2); Alkaline Phosphatase 139 U/L (35-105); Anion Gap 16.9 (5-19); Aspartate Amino Transferase 22 U/L (0-32); Blood Urea Nitrogen 14 mg/dL (6-20); Calcium 9.5 mg/dL (8.5-10.5); Carbon Dioxide 21 mmol/L (22-29); Chloride 102 mmol/L (98-107); Creatinine Clr Calc Pharmacy 106.9714; Globulin 3.3 g/dL (1.3-4.6); Glomerular Filtration Rate 75.9 mL/min (90-130); Glucose 82 mg/dL (65-115); Lipase 25 U/L (13-60); Osmolality Calculated 282 mOsm/kg (285-295); Potassium 3.9 mmol/L (3.5-5.1); Sodium 136 mmol/L (136-145); Total Bilirubin 0.2 mg/dL (0.15-1.2); Total Protein 7.5 g/dL (6.6-8.7)
--- NOTE | 2024-03-21 15:45 | CTR_ITS ---
PROCEDURE INFORMATION: Exam: CT Abdomen And Pelvis Without Contrast Exam date and time: 03/21/2024 3:54 PM Age: 48 years old Clinical indication: Abdominal pain; Flank; Right; Prior surgery; Surgery date: 6+ months; Surgery type: Gb/hyst/csection/tubal/partial colon removal due to cancer; Additional info: Flank pain TECHNIQUE: Imaging protocol: Computed tomography of the abdomen and pelvis without contrast. Radiation optimization: All CT scans at this facility use at least one of these dose optimization techniques: automated exposure control; mA and/or kV adjustment per patient size (includes targeted exams where dose is matched to clinical indication); or iterative reconstruction. COMPARISON: CT chest abdpel w/*[id number] 02/11/2023 4:59 PM RADIATION DOSE METRICS: Total DLP (mGy-cm): 908 FINDINGS: Lungs: Subsegmental bibasilar atelectasis. The visualized lung bases are otherwise clear. Diaphragm: No evidence of diaphragmatic defect. Liver: No evidence of focal hepatic lesion within limitation of a noncontrast exam. Gallbladder and bile ducts: Status post cholecystectomy. No evidence of intrahepatic or extrahepatic biliary dilatation. Pancreas: Grossly unremarkable. Spleen: Grossly unremarkable. Adrenal glands: Grossly unremarkable. Kidneys and ureters: No gross renal parenchymal abnormality. No evidence of hydronephrosis or ureteral stone. Stomach and bowel: No evidence of bowel obstruction or perienteric inflammatory changes. Postsurgical changes of the rectosigmoid noted. Appendix: Normal appendix. Intraperitoneal space: No evidence of free air or fluid collection. Vasculature: No evidence of aneurysmal dilitation of abdominal aorta. Lymph nodes: No evidence of adenopathy. Urinary bladder: Grossly unremarkable. Reproductive: Status post hysterectomy. Bones/joints: No evidence of acute fracture or aggresive osseous lesion. Soft tissues: No evidence of fluid collection or hematoma in the superficial soft tissues. 3 cm fat containing periumbilical hernia. CT/CT kidney stone [id number] IMPRESSION: 1. No evidence of acute abnormality in the abdomen or pelvis within limitations of a noncontrast exam.
[2024-03-21] MEDS: ondansetron 2 mg/ML SDV 2 mL 4 MG IVP (16:49)
[2024-03-21] MEDS: morphine 4 mg/mL SDV 1 mL IVP (16:49)
== END 2024-03-21 17:25 | disposition home or self-care (01) ==
PROVIDERS: Emergency Provider Family Medicine; PCP Nurse Practitioner
DX: R10.9 Unspecified abdominal pain (principal); F17.210 Nicotine dependence, cigarettes, uncomplicated; E78.2 Mixed hyperlipidemia; J44.9 Chronic obstructive pulmonary disease, unspecified; Z85.038 Personal history of other malignant neoplasm of large intestine; I10 Essential (primary) hypertension
CPT/HCPCS: 74176; 80053; 81003; 83690; 85025; 93005; 96361; 96374; 96375; 99285; J2270; J2405; J7030

== ENCOUNTER 2024-05-24 20:00 | Outpatient (CLI) | payer BC, MEDICAID, SELFPAY | END 2024-05-24 20:01 | disposition home or self-care (01) | LOC: SLEEP 05-25 06:40 | PROVIDERS: PCP Nurse Practitioner; Visit Provider Anesthesiology Pain Medicine | DX: G47.10 Hypersomnia, unspecified (principal) | CPT/HCPCS: 95810 ==

== ENCOUNTER → 2024-07-06 14:35 | Outpatient (BNVA) | payer BC, MEDICAID, SELFPAY | PROVIDERS: PCP Nurse Practitioner; Visit Provider Psychiatry & Neurology Neurology | DX: G62.9 Polyneuropathy, unspecified (principal); R20.2 Paresthesia of skin; R52 Pain, unspecified | CPT/HCPCS: 36415; 84207 ==

== ENCOUNTER → 2024-09-19 09:09 | Outpatient (BNVA) | payer BC, MEDICAID, SELFPAY | PROVIDERS: PCP Nurse Practitioner; Visit Provider Nurse Practitioner | DX: I10 Essential (primary) hypertension (principal); E78.2 Mixed hyperlipidemia; E55.9 Vitamin D deficiency, unspecified | CPT/HCPCS: 80053; 80061; 82306; 84443 ==

== ENCOUNTER → 2024-09-27 11:20 | Outpatient (BNVA) | payer BC, MEDICAID, SELFPAY | PROVIDERS: PCP Nurse Practitioner; Visit Provider Podiatrist Foot & Ankle Surgery | DX: M79.671 Pain in right foot (principal); M79.672 Pain in left foot; G62.9 Polyneuropathy, unspecified; G57.83 Other specified mononeuropathies of bilateral lower limbs | CPT/HCPCS: 73630 ==

== ENCOUNTER → 2024-11-03 08:04 | Outpatient (BNVA) | payer BC, MEDICAID, SELFPAY | PROVIDERS: PCP Nurse Practitioner; Visit Provider Orthopaedic Surgery | DX: M48.062 Spinal stenosis, lumbar region with neurogenic claudication (principal); Z09 Encounter for follow-up examination after completed treatment for conditions other than malignant neoplasm | CPT/HCPCS: 72110 ==

== ENCOUNTER 2024-12-16 11:38 | Outpatient (CLI) | payer BC, MEDICAID, SELFPAY ==
--- NOTE | 2024-12-16 12:00 | CT_ITS ---
WS: [id number] CT chest wo con [id number] HISTORY: R91.1 - Solitary pulmonary nodule TECHNIQUE: Axial imaging performed through the thorax. Coronal and sagittal reformats are submitted. All CT scans at [facility] use at least one of these dose optimization techniques: automated exposure control; mA and/or kV adjustment per patient size (includes targeted exams where dose is mat ched to clinical indication); or iterative reconstruction. CONTRAST: None DLP: 411.23 mGy.cm COMPARISON: 02/11/2023, 11/02/2023 Lungs and central airway: Mild pulmonary hyperinflation. Stable 5 mm noncalcified nodule posterior RI GHT upper lobe. Focal segmental groundglass attenuation segment of the RIGHT upper lobe. Mild progres mansi since the prior study. There is additional new very subtle nodular opacification in the RIGHT up per lobe. Subsegmental atelectasis at the lingula. Pleura: Normal. No pleural effusion. Heart and pericardium: Normal size heart with no pericardial effusion. Mediastinum and melania: Calcified bilateral hilar lymph nodes. Subcarinal calcified and paratracheal ly mph nodes. No new or enlarging lymph nodes. Vessels: Mild atherosclerosis aorta. Chest wall and lower neck: No soft tissue masses. Upper abdomen: Prior cholecystectomy. No adrenal mass. Osseous structures: No destructive process. CT/CT chest wo con [id number] IMPRESSION: 1. Stable 5 mm noncalcified nodule RIGHT upper lobe since 02/11/2023. 2. New groundglass attenuation RIGHT upper lobe and subtle scattered nodular o pacifications in the RIGHT upper lobe suggesting tree-in-bud airspace disease. Mild early changes of endobronchial pneumonia suspected. 3. No new or enlarging mediastinal or hilar lymph nodes. 4. Prior cholecystectomy.
== END 2024-12-16 11:39 | disposition home or self-care (01) ==
LOC: RAD 11:40
PROVIDERS: PCP Nurse Practitioner; Visit Provider Nurse Practitioner
DX: R91.8 Other nonspecific abnormal finding of lung field (principal); J98.11 Atelectasis; I89.8 Other specified noninfective disorders of lymphatic vessels and lymph nodes; I70.0 Atherosclerosis of aorta; Z90.49 Acquired absence of other specified parts of digestive tract
CPT/HCPCS: 71250

== ENCOUNTER → 2025-01-10 08:16 | Outpatient (BNVA) | payer BC, MEDICAID, SELFPAY | PROVIDERS: PCP Nurse Practitioner; Visit Provider Nurse Practitioner | DX: J43.2 Centrilobular emphysema (principal) | CPT/HCPCS: 71046 ==

== ENCOUNTER 2025-01-20 08:16 | Day surgery (SDC) | payer BC, MEDICAID, SELFPAY ==
[2025-01-20] VITALS (12 sets, daily range): BP systolic 112–143; BP diastolic 78–98; PULSE 69–85; RESP 14–21; TEMP 36.1–36.6; O2SAT 93–98; BMI 33.2
--- NOTE | 2025-01-20 08:16 | P.HPUD_ITS ---
Surgery/Procedure H&P Update DATE OF PROCEDURE: January 20, 2025 DATE H&P PERFORMED: 09/11/20 H&P UPDATE INFORMATION: I have reviewed H&P completed within last 30 days, I have examined patient prior to procedure, No changes to prior documentation and H&P is in [facility] on date indicated PLANNED PROCEDURE: Operation Date: 01/20/25 09:55 Proposed Procedures p Peroneal Nerve Decompression(Left) - David Prakash DPM
--- NOTE | 2025-01-20 08:16 | PM.OPSURHP ---
Providers/Chief Complaint Primary Care Provider: PILI Peng-C Chief Complaint: G57.82 History of Present Illness Oxana Rock is a 49 year old female presenting with peripheral neuropathy. She was initially diagnosed with nerve entrapment in September 2024, with symptoms most pronounced at the left common peroneal nerve. 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 The patient's past medical history is notable for a familial predisposition to neuropathy, Raynaud's, scleroderma, and systemic lupus erythematosus on her mother's side, and congestive heart failure and diabetes on her father's side. Her social history includes smoking two packs per day and drinking energy drinks, with denial of drug abuse. She mentioned ongoing evaluation by an orthopedic spine surgeon and plans to consult Dr. Nguyen regarding potential neurostimulator placement. The discussion highlighted her hesitance about surgery due to concerns over back issues despite significant neuropathic symptoms. Review of Systems General: Reports: 10 or more systems reviewed and unremarkable except in HPI and below Const: Denies: fever(s) or chills Eyes: Denies: change in vision Card: Denies: chest pain or palpitations Resp: Denies: dyspnea or productive cough GI: Denies: abdominal pain, nausea or vomiting : Denies: flank pain Musc: Reports: extremity pain Skin/Breast: Denies: rash Neuro: Denies: numbness in extremities, sensory changes or frequent falls Psych: Denies: suicidal ideation Hudson/Lymph: Denies: easy bruising Medications/Allergies Home Medications ?Medication ?Instructions ?Recorded ?Confirmed ?Last Taken ?Type acetaminophen 325 mg tablet 325 - 650 mg PO Q6H PRN Pain 09/24/20 01/19/25 01/18/25 History (Tylenol) cholecalciferol (vitamin D3) 250 250 mcg PO DAILY 09/22/22 01/19/25 01/18/25 History mcg (10,000 unit) capsule hydrocodone 10 mg-acetaminophen 1 tab PO BID Back pain 07/06/24 01/19/25 01/19/25 History 325 mg tablet meloxicam 7.5 mg tablet 7.5 mg PO DAILY #30 tabs 11/24/24 01/19/25 Unknown Rx albuterol sulfate 90 mcg/actuation 2 puff inhalation Q4H PRN 12/01/24 01/19/2525 Rx aerosol inhaler bronchospasm #8.5 grams desvenlafaxine succinate 50 mg 50 mg PO DAILY #30 tabs 12/01/24 01/19/25 01/19/25 Rx tablet,extended release 24 hr (Pristiq) fenofibrate nanocrystallized 145 145 mg PO DAILY #30 tabs 12/01/24 01/19/25 01/18/25 Rx mg tablet (Tricor) gabapentin 300 mg capsule 300 mg PO TID pain #90 caps 12/01/24 01/19/25 01/19/25 Rx liraglutide 0.6 mg/0.1 mL (18 mg/3 See Rx Instructions SUBCUT 12/01/24 01/19/25 01/15/25 Rx mL) subcutaneous pen injector .COMPLEX #9 mL (Victoza 3-Truman) losartan 25 mg tablet (Cozaar) 25 mg PO DAILY #30 tabs 12/01/24 01/19/25 01/19/25 Rx methocarbamol 750 mg tablet 750 mg PO .every 12 hours #60 tabs 12/01/24 01/19/25 01/19/25 Rx mometasone-formoterol HFA 100 2 puff inhalation BID #13 grams 12/01/24 01/19/25 Unknown Rx mcg-5 mcg/actuation aerosol inhaler (Dulera) pantoprazole 40 mg tablet,delayed 40 mg PO DAILY #30 tabs 12/01/24 01/19/25 01/19/25 Rx release (Protonix) prednisone 10 mg tablet 10 mg PO DAILY #7 tabs 12/01/24 01/19/25 Unknown Rx spironolactone 50 mg tablet 50 mg PO BID #60 tabs 12/01/24 01/19/25 01/19/25 Rx Disposable nebulizer circuit #1 ea 12/16/24 12/16/24 Unknown Rx albuterol sulfate 2.5 mg/3 mL 2.5 mg (3 mL) inhalation Q4H PRN 12/16/24 01/19/25 Unknown Rx (0.083 %) solution for nebulization shortness of breath or wheezing #75 mL budesonide 0.5 mg/2 mL suspension 0.5 mg (2 mL) inhalation BID #60 mL 12/16/24 01/19/25 01/18/25 Rx for nebulization (Pulmicort) Allergies Allergy/AdvReac Type Severity Reaction Status Date / Time celecoxib (From Celebrex) AdvReac ADR-Gastrointestinal Verified 12/05/24 19:55 Upset ibuprofen AdvReac vomiting Verified 12/05/24 19:55 PFSH PFSH: Medical History Myofascial pain syndrome Obesity (BMI 30-39.9) Hyperlipidemia, mixed COPD (chronic obstructive pulmonary disease) OA (osteoarthritis of spine) Osteoarthritis of spine at multiple levels Cancer of sigmoid colon T3N0M0 in June 19, 2020 Chronic migraine without aura, intractable, with status migrainosus Essential (primary) hypertension Anxiety and depression Surgical History Status post laparoscopic cholecystectomy (09/19/20) Status post colonoscopy (07/01/21) 06/19/20 Repeat in 3 years Status post laparoscopic-assisted sigmoidectomy (06/21/20) History of laparoscopy For adhesion History of section one time History of tubal ligation History of hysterectomy Family History Other Arthritis CAD (coronary artery disease) Cancer Diabetes Hypertension Stroke Denies family history of Anesthesia complication Bleeding disorder Social History Smoking and tobacco/nicotine status: current every day tobacco/nicotine user cigarettes Packs smoked per day: 2 Years cigarettes smoked: 35 [ Other cigarette details: started at age 13] Second hand smoke exposure: Yes Alcohol intake: current Alcohol intake frequency: holidays/special occasions only Substance/Drug Use: never Adopted: No Caregiver/support person: No Lives independently: Yes Household members: none Housing: House Marital status: Single Number of children: 3 service: No Current occupational status: employed Current occupation: [employer] Do you think of yourself as: Straight/Heterosexual Current gender identity: Female Dietary Habits: Caffeine: Yes Vital Signs Weight: Weight last 48 hrs Weight 225 lb Physical Exam Narrative: EXAM NARRATIVE: Patient is alert and oriented ?3 and in no acute distress. The following is a focused bilateral lower extremity exam. VASCULAR: Dorsalis pedis and posterior tibial arteries palpable +2. Capillary refill time less than 3 seconds to the distal hallux bilaterally. Calf is supple and nontender proximally and distally. No pedal edema appreciated. Pedal hair growth present. NEUROLOGICAL: Positive Tinel on percussion of common peroneal nerve left and right lower extremity. Protective sensation intact 9 out of 10 sites tested with [place] monofilament left and right foot. Was absent at the dorsal aspect of the right hallux interphalangeal joint. DERMATOLOGICAL: Lower extremity skin is well-hydrated, normal texture and turgor. There are no open sores or lesions noted to the lower extremities. No erythema or ecchymosis present to the bilateral legs and feet. MUSCULOSKELETAL: No palpable mass along the course of the plantar fascia appreciated. No pain to palpation along the course of the bilateral Achilles tendon. No pain to palpation along the course posterior tibial tendon or peroneal tendons. No pain with [id number] compression of calcaneus, bilaterally. Muscle strength is 5/5 in all 3 cardinal planes pain-free without guarding to the foot and ankle, bilaterally. CARDIOVASCULAR: S1, S2, normal rate, normal rhythm. Dorsalis pedis and posterior tibial arteries palpable. LUNGS: Clear to auscltation, no use of acessory muscles, no crackles or wheezes. 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 Assessment and Plan 49-year-old female with a history of nerve entrapment presenting with peripheral neuropathy. Nerve conduction studies suggest left peroneal motor axonal neuropathy and bilateral tarsal tunnel syndrome. Symptoms are severe in the lower extremities, particularly the left, impacting her functional activities like playing with grandchildren. There is a noted reluctance to undergo invasive procedures like surgery. The primary complaint today focuses on managing neuropathy symptoms with potential interventions discussed, including nerve release procedures. 1. Tarsal tunnel syndrome, bilateral lower limbs G57.53 Although current focus remains on the most symptomatic left side, bilateral symptoms warrant future consideration for corrective procedures should initial interventions prove beneficial. 2. Bilateral Peripheral Neuropathy Peripheral neuropathy management to focus on symptom relief. Discussed surgical options like nerve release to alleviate symptomatic exacerbation, particularly on the left side. Neurostimulator placement consultation planned with Dr. Nguyen to consider less invasive treatment options. 3. Left Peroneal Motor Axonal Neuropathy The need for left peroneal nerve decompression was reviewed, considering its substantial contribution to symptoms. Surgery to be evaluated based on consultation outcomes and patient willingness. - Continue consultation with Dr. Nguyen regarding nerve stimulator discussion. - Consider non-surgical methods and lifestyle modifications while evaluating surgical options. - Monitor neuropathy symptoms and report significant changes immediately. - Maintain safe levels of physical activity and avoid strenuous exertion post-consultation. - Stop smoking and reduce energy drink consumption to minimize health risks. The current management emphasizes alleviating the most severe manifestations of peripheral neuropathy while considering less invasive treatments first. The primary goal is symptom relief while preserving patient functional capacity, balancing between procedural intervention and the existing comfort level. Potential nerve release interventions are to be weighed against her reluctance for invasive procedures. Nerve stimulator placement remains an alternative upon further examination. The proposed approach is a stepwise escalation, starting with patients' primary complaints, adjusting strategies as treatment progresses. The emphasis remains on informed decision-making with the patient, ensuring understanding of risks, benefits, and procedural implications. Scheduled outpatient surgery for decompression of left common peroneal nerve which is most symptomatic discussed risks versus benefits she would like to proceed January 20. Risks include but are not limited to pain, bleeding, numbness, infection, bruising, swelling, surgical site dehiscence, exacerbation of her symptoms failure to alleviate symptoms. Takes Victoza once daily will call her in advance to hold for outpatient surgery. PDMP PDMP Reviewed: Not Reviewed Coding Level of Care Code Acute Code for Chg Fwd Diagnoses Peripheral polyneuropathy G62.9 Peripheral neuropathy type: polyneuropathy, unspecified Nerve entrapment syndrome of left lower extremity G57.92
--- NOTE | 2025-01-20 08:56 | P.ANESASSM_ITS ---
Pre-Anesthetic Assessment Height/Weight: Height 1.75 m Weight 102.058 kg Temp Pulse Resp BP Pulse Ox O2 Del Method 97.9 F 85 18 143/98 97 Room Air 01/20/25 08:29 01/20/25 08:29 01/20/25 08:29 01/20/25 08:29 01/20/25 08:29 01/20/25 08:29 Preop Diagnosis: Left common peroneal nerve entrapment. Operation Date: 01/20/25 09:55 Proposed Procedures p Peroneal Nerve Decompression(Left) - David Prakash DPM Familial anesthetic complications: None Was Beta Paramjit taken within 24 hours: N/A Was Clonidine taken within 24 hours: N/A Last intake: Intake Last Liquid Date 01/19/25 Last Liquid Time 23:00 Last Solid Date 01/19/25 Last Solid Time 20:30 Social Tobacco, No alcohol and No tobacco Exam alert, oriented x 3, clear to auscultation bilaterally and regular rate & rhythm Airway Mallampati: Class II Dentition: chipped (multiple missing, all bad ) Pulmonary Chronic Obstructive Pulmonary Disease CV/HEM Hypertension GI Gastroesophageal Reflux Disease Metabolic Hyperlipidemia Anesthetic Plan ASA status: 3 Anesthesia: General Risk of > 500 ml blood loss (7ml/kg in children): No Medications/Allergies Home Medications ?Medication ?Instructions ?Recorded ?Confirmed ?Last Taken ?Type acetaminophen 325 mg tablet 325 - 650 mg PO Q6H PRN Pa in 09/24/20 01/19/25 01/18/25 History (Tylenol) cholecalciferol (vitamin D3) 250 250 mcg PO DAILY 06/0601/19/25 01/18/25 History mcg (10,000 unit) capsule hydrocodone 10 mg-acetaminophen 1 tab PO BID Back pain 07/06/24 01/19/25 01/20/25 History 325 mg tablet meloxicam 7.5 mg tablet 7.5 mg PO DAILY #30 tabs 08/1001/19/25 Unknown Rx albuterol sulfate 90 mcg/actuation 2 puff inhalation Q 4H PRN 12/01/24 01/19/25 01/18/25 Rx aerosol inhaler bronchospasm #8.5 grams desvenlafaxine succinate 50 mg 50 mg PO DAILY #30 tabs 12/01/24 01/19/25 Rx tablet,extended release 24 hr (Pristiq) fenofibrate nanocrystallized 145 145 mg PO DAILY #30 t abs 12/01/24 01/19/25 01/18/25 Rx mg tablet (Tricor) gabapentin 300 mg capsule 300 mg PO TID pain #90 caps 12/01/24 01/19/25 01/20/25 Rx liraglutide 0.6 mg/0.1 mL (18 mg/3 See Rx Instructions SUBCUT 12/01/24 01/19/25 01/15/25 Rx mL) subcutaneous pen injector .COMPLEX #9 mL (Victoza 3-Truman) losartan 25 mg tablet (Cozaar) 25 mg PO DAILY #30 tabs 12/01/24 01/19/25 01/19/25 Rx methocarbamol 750 mg tablet 750 mg PO .every 12 hours #60 tabs 12/01/24 01/19/25 01/19/25 Rx mometasone-formoterol HFA 100 2 puff inhalation BID #1 3 grams 12/01/24 01/19/25 Unknown Rx mcg-5 mcg/actuation aerosol inhaler (Dulera) pantoprazole 40 mg tablet,delayed 40 mg PO DAILY #30 t abs 12/01/24 01/19/25 01/19/25 Rx release (Protonix) prednisone 10 mg tablet 10 mg PO DAILY #7 tabs 12/0101/19/25 Unknown Rx spironolactone 50 mg tablet 50 mg PO BID #60 tabs 11/1601/19/25 01/19/25 Rx Disposable nebulizer circuit #1 ea 12/16/24 12/16/24 U nknown Rx albuterol sulfate 2.5 mg/3 mL 2.5 mg (3 mL) inhalation Q4H PRN 12/16/24 01/19/25 Unknown Rx (0.083 %) solution for nebulization shortness of breat h or wheezing #75 mL budesonide 0.5 mg/2 mL suspension 0.5 mg (2 mL) inhala tion BID #60 mL 12/16/24 01/19/25 01/18/25 Rx for nebulization (Pulmicort) hydrocodone 10 mg-acetaminophen 1 tab PO Q6H PRN pain 7 days #28 01/20/25 Unknown Rx 325 mg tablet tabs Allergies Allergy/AdvReac Type Severity Reaction Status Date / Time celecoxib (From Celebrex) AdvReac ADR-Gastrointestinal Verified 12/05/24 19:55 Upset ibuprofen AdvReac vomiting Verified 12/05/24 19:55 COUNT INCLUDES THE [facility] Anesthesia Medical History Myofascial pain syndrome Obesity (BMI 30-39.9) Hyperlipidemia, mixed COPD (chronic obstructive pulmonary disease) OA (osteoarthritis of spine) Osteoarthritis of spine at multiple levels Cancer of sigmoid colon T3N0M0 in June 19, 2020 Chronic migraine without aura, intractable, with status migrainosus Essential (primary) hypertension Anxiety and depression Surgical History Status post laparoscopic cholecystectomy (09/19/20) Status post colonoscopy (07/01/21) 06/19/20 Repeat in 3 years Status post laparoscopic-assisted sigmoidectomy (06/21/20) History of laparoscopy For adhesion History of section one time History of tubal ligation History of hysterectomy Family History Other Arthritis CAD (coronary artery disease) Cancer Diabetes Hypertension Stroke Denies family history of Anesthesia complication Bleeding disorder Social History Smoking and tobacco/nicotine status: current every day tobacco/nicotine user cigarettes Packs smoked per day: 2 Years cigarettes smoked: 35 [ Other cigarette details: started at age 13] Second hand smoke exposure: Yes Alcohol intake: current Alcohol intake frequency: holidays/special occasions only Substance/Drug Use: never Adopted: No Caregiver/support person: No Lives independently: Yes Household members: none Housing: House Marital status: Single Number of children: 3 service: No Current occupational status: employed Current occupation: [employer] Do you think of yourself as: Straight/Heterosexual Current gender identity: Female Data Anesthesia Cardiac Studies: Echocardiogram 03/07/24
[2025-01-20] MEDS: sodium chloride 0.9% 1,000 ML 30 ML IV (09:00)
[2025-01-20] MEDS: albuterol 2.5 mg/3 mL Neb INHALATION (09:00)
[2025-01-20] MEDS: ceFAZolin 2,000 mg SDV 2000 MG IVP (09:05)
[2025-01-20] MEDS: BUPivacaine 0.5% INJ 10 mL 15 ML INJECTION (09:29)
[2025-01-20] MEDS: lidocaine 1% 10 ML INJ 15 ML INJECTION (09:29)
--- NOTE | 2025-01-20 09:53 | W.PM.BPON ---
Date of Procedure: 01/29/24 Surgeon: David Prakash DPM Felt Hat Flanging Operator(s): Siena Procedure(s) performed: Nerve decompression left leg Findings of the procedure(s): Nerve entrapment left peroneal nerve and branches Estimated blood loss: 1 mL Specimen(s) removed: No specimens Post-operative diagnosis: Nerve entrapment left leg
--- NOTE | 2025-01-20 09:54 | P.OP_ITS ---
Operative Report Date of procedure: January 20, 2025 Pre-op diagnosis: Peripheral polyneuropathy G62.9 Foot pain, left M79.672 Entrapment of left lower extremity nerve G57.82 Post-op diagnosis: Peripheral polyneuropathy G62.9 Foot pain, left M79.672 Entrapment of left lower extremity nerve G57.82 Procedure done: Decompression of left common peroneal nerve. 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 Assessment and Plan 49-year-old female with a history of nerve entrapment presenting with peripheral neuropathy. Nerve conduction studies suggest left peroneal motor axonal neuropathy and bilateral tarsal tunnel syndrome. Symptoms are severe in the lower extremities, particularly the left, impacting her functional activities like playing with grandchildren. There is a noted reluctance to undergo invasive procedures like surgery. The primary complaint today focuses on managing taiwo ropathy symptoms with potential interventions discussed, including nerve release procedures. 1. Tarsal tunnel syndrome, bilateral lower limbs G57.53 Although current focus remains on the most symptomatic left side, bilateral symptoms warrant future consideration for corrective procedures should initial interventions prove beneficial. 2. Bilateral Peripheral Neuropathy Peripheral neuropathy management to focus on symptom relief. Discussed surgical options like nerve release to alleviate symptomatic exacerbation, particularly on the left side. Neurostimulator placement consultation planned with Dr. Nguyen to consider less invasive treatment options. 3. Left Peroneal Motor Axonal Neuropathy The need for left peroneal nerve decompression was reviewed, considering its substantial contribution to symptoms. Surgery to be evaluated based on consultation outcomes and patient willingness. - Continue consultation with Dr. Nguyen regarding nerve stimulator discussion. - Consider non-surgical methods and lifestyle modifications while evaluating surgical options. - Monitor neuropathy symptoms and report significant changes immediately. - Maintain safe levels of physical activity and avoid strenuous exertion post- consultation. - Stop smoking and reduce energy drink consumption to minimize health risks. The current management emphasizes alleviating the most severe manifestations of peripheral neuropathy while considering less invasive treatments first. The primary goal is symptom relief while preserving patient functional capacity, balancing between procedural intervention and the existing comfort level. Potential nerve release interventions are to be weighed against her reluctance for invasive procedures. Nerve stimulator placement remains an alternative upon further examination. The proposed approach is a stepwise escalation, starting with patients' primary complaints, adjusting strategies as treatment progresses. The emphasis remains on informed decision-making with the patient, ensuring understanding of risks, benefits, and procedural implications. Procedure: Under mild sedation patient was brought to the operating room and the patient was placed in the supine position on the operating table. Well-padded pneumatic thigh tourniquet to the left thigh was applied. Local field block performed in a V-block fashion to the left proximal lateral leg with Marcaine and Exparel. The left lower extremity was prepped and draped in a sterile fashion. Left lower extremity was exanguinated with Esmarch bandage and tourniquet inflated to 250 mmHg. A longitudinal incision, approximately 4 cm in length, was made overlying the fibular head, centered over the area of maximal tenderness and n erve compression. The subcutaneous tissues were dissected, and the fascia overlying the peroneus longus muscle was identified. The fascia was carefully incised, and the peroneus longus muscle was retracted. The common peroneal nerve was identified as it coursed around the fibular neck. The nerve was carefully dissected free from surrounding tissues. Dense fibrous bands and scar tissue were noted compressing the nerve at the fibular head. These constricting bands were meticulously released using microsurgical techniques. The nerve was inspected along its course, and no further areas of compression were identified. Hemostasis was achieved with electrocautery. The wound was irrigated with sterile saline. The fascia was closed with 2-0 Vicryl the subcutaneous tissue was closed with 3-0 Vicryl, and the skin was closed with 4-0 nylon. A sterile dressing was applied. Findings: * Dense fibrous bands compressing the common peroneal nerve at the fibular head. * No other areas of nerve compression identified. * The nerve appeared to be intact and without gross evidence of injury following decompression. Tourniquet was deflated and a prompt hyperemic response is noted to the distal digits of the left foot. Patient was transferred to the PACU with vital signs stable and vascular status intact. Following a period of postoperative monitoring she will be discharged home may be weightbearing as tolerated below threshold of pain was given at home care instructions and scheduled follow-up.
[2025-01-20] MEDS: fentaNYL 50 mcg/mL INJ 2mL IVP (10:08)
[2025-01-20] MEDS: HYDROcodone-acetaminophen 10-325 mg Tablet 1 TAB PO (10:47)
--- NOTE | 2025-01-20 11:15 | ANE.PACU2 ---
Inpatient post-anesthesia follow up: Airway intact: Yes Vital signs: Temperature 97.9 F Pulse Rate 69 Respiratory Rate 16 Blood Pressure 120/79 Pulse Oximetry 97 Oxygen Delivery Me thod Room Air Oxygen Flow Rate Fraction of Inspir ed Oxygen Hydration adequate: Yes Nausea and vomiting: No Pain level: 1 Mental status: Baseline
== END 2025-01-20 11:15 | disposition home or self-care (01) ==
PROVIDERS: PCP Nurse Practitioner; Visit Provider Podiatrist Foot & Ankle Surgery
PROC: (CPT 64708; principal; 2025-01-20 09:45)
DX: G57.82 Other specified mononeuropathies of left lower limb (principal); G57.53 Tarsal tunnel syndrome, bilateral lower limbs; G62.9 Polyneuropathy, unspecified; Z79.899 Other long term (current) drug therapy; Z79.85 Long-term (current) use of injectable non-insulin antidiabetic drugs; Z88.8 Allergy status to other drugs, medicaments and biological substances; E66.9 Obesity, unspecified; Z68.33 Body mass index [BMI] 33.0-33.9, adult; E78.2 Mixed hyperlipidemia; J44.9 Chronic obstructive pulmonary disease, unspecified; Z85.038 Personal history of other malignant neoplasm of large intestine; I10 Essential (primary) hypertension; Z90.49 Acquired absence of other specified parts of digestive tract; Z90.710 Acquired absence of both cervix and uterus; F17.210 Nicotine dependence, cigarettes, uncomplicated
CPT/HCPCS: 64712; J0690; J1100; J1720; J2250; J2405; J2704; J3010; J3490; J7030; J7613; J9999

== ENCOUNTER → 2025-02-27 11:37 | Outpatient (BNVA) | payer BC, MEDICAID, SELFPAY | PROVIDERS: PCP Nurse Practitioner; Visit Provider Nurse Practitioner | DX: F41.9 Anxiety disorder, unspecified (principal); F32.9 Major depressive disorder, single episode, unspecified; I10 Essential (primary) hypertension; M79.18 Myalgia, other site; K21.9 Gastro-esophageal reflux disease without esophagitis; E66.9 Obesity, unspecified; C18.7 Malignant neoplasm of sigmoid colon; E78.2 Mixed hyperlipidemia; E55.9 Vitamin D deficiency, unspecified; Z79.899 Other long term (current) drug therapy | CPT/HCPCS: 80053; 80061; 82306; 82378; 85025 ==

== ENCOUNTER 2025-03-01 11:54 | Outpatient (CLI) | payer BC, MEDICAID, SELFPAY ==
--- NOTE | 2025-03-01 12:00 | MM_ITS ---
WS: [id number] Bilateral screening 3D tomosynthesis digital mammogram, 03/01/2025 12:08 PM Clinical Data: SCREENING Comparison: 02/02/2024, 03/13/2022 Findings: No spiculated masses or clustered calcifications are seen. There are no secondary signs of carcinoma. MM/MM scr BI tomosynthesis [id number] Impression: Negative bilateral mammogram unchanged. Recommend annual screening mammograms. BIRADS: 1 - Negative. FOLLOW UP: 1 Year Follow-up DENSITY: There are scattered areas of fibroglandular density. The CAD cafeteria or lunchroom checker was used
== END 2025-03-01 11:55 | disposition home or self-care (01) ==
LOC: MOBLMAM 11:56
PROVIDERS: PCP Nurse Practitioner; Visit Provider Nurse Practitioner
DX: Z12.31 Encounter for screening mammogram for malignant neoplasm of breast (principal); R92.323 Mammographic fibroglandular density, bilateral breasts
CPT/HCPCS: 77063; 77067

== ENCOUNTER 2025-07-07 08:56 | Day surgery (SDC) | payer BC, MEDICAID, SELFPAY ==
[2025-07-07] VITALS (13 sets, daily range): BP systolic 132–158; BP diastolic 80–97; PULSE 64–88; RESP 14–23; TEMP 36.1–36.5; O2SAT 95–99; BMI 32.9
--- NOTE | 2025-07-07 09:32 | ANES.PREANE2 ---
Pre-Anesthetic Assessment Height/Weight: Height 1.75 m Weight 101.151 kg Temp Pulse Resp BP Pulse Ox O2 Del Method 97.7 F 74 17 132/93 99 Room Air 07/07/25 09:12 07/07/25 09:12 07/07/25 09:12 07/07/25 09:12 07/07/25 09:12 07/07/25 09:12 Preop Diagnosis: Nerve entrapment right leg Operation Date: 07/07/25 10:15 Proposed Procedures p Decompression of right common peroneal nerve.(Right) - David Prakash DPM Familial anesthetic complications: None Was Beta Paramjit taken within 24 hours: N/A Was Clonidine taken within 24 hours: N/A Last intake: Intake Last Liquid Date 07/06/25 Last Liquid Time 23:00 Last Solid Date 07/06/25 Last Solid Time 19:30 Social Tobacco and No alcohol Exam alert, oriented x 3, clear to auscultation bilaterally and regular rate & rhythm Airway Mallampati: Class II Dentition: chipped and loose Pulmonary Chronic Obstructive Pulmonary Disease CV/HEM Hypertension Anesthetic Plan ASA status: 3 Anesthesia: MAC Risk of > 500 ml blood loss (7ml/kg in children): No Medications/Allergies Home Medications ?Medication ?Instructions ?Recorded ?Confirmed ?Last Taken ?Type acetaminophen 325 mg tablet 325 - 650 mg PO Q6H PRN Pain 09/24/20 07/06/25 07/06/25 History (Tylenol) cholecalciferol (vitamin D3) 250 250 mcg PO DAILY 09/22/22 07/06/25 01/18/25 History mcg (10,000 unit) capsule Disposable nebulizer circuit #1 ea 12/16/24 07/06/25 Unknown Rx albuterol sulfate 2.5 mg/3 mL 2.5 mg (3 mL) inhalation Q4H PRN 12/16/24 07/07/25 07/07/25 Rx (0.083 %) solution for nebulization shortness of breath or wheezing #75 mL albuterol sulfate 90 mcg/actuation 2 puff inhalation Q4H PRN 05/09/25 07/07/25 07/07/25 Rx aerosol inhaler bronchospasm #8.5 grams desvenlafaxine succinate 50 mg 50 mg PO DAILY #30 tabs 05/09/25 07/06/25 07/06/25 Rx tablet,extended release 24 hr (Pristiq) gabapentin 300 mg capsule 300 mg PO TID pain #90 caps 05/09/25 07/06/25 07/07/25 Rx losartan 25 mg tablet (Cozaar) 25 mg PO DAILY #30 tabs 05/09/25 07/06/25 07/06/25 Rx lovastatin 20 mg tablet 20 mg PO DAILY #30 tabs 05/09/25 07/06/25 07/06/25 Rx methocarbamol 750 mg tablet 750 mg PO .every 12 hours #60 tabs 05/09/25 07/06/25 07/07/25 Rx mometasone-formoterol HFA 100 2 puff inhalation Q12H #13 grams 05/09/25 07/06/25 07/06/25 Rx mcg-5 mcg/actuation aerosol inhaler (Dulera) pantoprazole 40 mg tablet,delayed 40 mg PO DAILY #30 tabs 05/09/25 07/06/25 07/06/25 Rx release (Protonix) tramadol 50 mg tablet 50 mg PO Q6H PRN pain #120 tabs 05/09/25 07/06/25 07/07/25 Rx spironolactone 50 mg tablet 50 mg PO BID #60 tabs 05/27/25 07/06/25 07/06/25 Rx Allergies Allergy/AdvReac Type Severity Reaction Status Date / Time fenofibrate (From Tricor) AdvReac Severe ADR-Nausea Verified 05/09/25 10:35 celecoxib (From Celebrex) AdvReac ADR-Gastrointestinal Verified 05/09/25 10:35 Upset ibuprofen AdvReac vomiting Verified 05/09/25 10:35 Current Medications Generic Name Dose Route Start Last Admin Trade Name Freq PRN Reason Stop Dose Admin Sodium Chloride 1,000 mls @ 30 mls/hr 07/07/25 09:15 07/07/25 09:28 Sodium Chloride 0.9% IV 07/08/25 09:14 30 mls/hr .Q24H STEPHEN Administration PFSH Anesthesia Medical History Myofascial pain syndrome Obesity (BMI 30-39.9) Hyperlipidemia, mixed COPD (chronic obstructive pulmonary disease) OA (osteoarthritis of spine) Osteoarthritis of spine at multiple levels Cancer of sigmoid colon T3N0M0 in June 19, 2020 Chronic migraine without aura, intractable, with status migrainosus Essential (primary) hypertension Anxiety and depression Surgical History Status post laparoscopic cholecystectomy (09/19/20) Status post colonoscopy (07/01/21) 06/19/20 Repeat in 3 years Status post laparoscopic-assisted sigmoidectomy (06/21/20) History of laparoscopy For adhesion History of section one time History of tubal ligation History of hysterectomy Family History Other Arthritis CAD (coronary artery disease) Cancer Diabetes Hypertension Stroke Denies family history of Anesthesia complication Bleeding disorder Social History Smoking and tobacco/nicotine status: current every day tobacco/nicotine user cigarettes Packs smoked per day: 2 Years cigarettes smoked: 35 [ Other cigarette details: started at age 13] Second hand smoke exposure: Yes Alcohol intake: current Alcohol intake frequency: holidays/special occasions only Substance/Drug Use: never Adopted: No Caregiver/support person: No Lives independently: Yes Household members: none Housing: House Marital status: Single Number of children: 3 service: No Current occupational status: employed Current occupation: [employer] Do you think of yourself as: Straight/Heterosexual Current gender identity: Female Data Anesthesia Cardiac Studies: Echocardiogram 03/07/24
--- NOTE | 2025-07-07 09:48 | W.PM.OPSUD ---
Surgery/Procedure H&P Update DATE OF PROCEDURE: July 07, 2025 DATE H&P PERFORMED: 07/07/25 H&P UPDATE INFORMATION: I have reviewed H&P completed within last 30 days, I have examined patient prior to procedure, No changes to prior documentation and Risks and benefits of the procedure reviewed PREOP DIAGNOSIS: Nerve entrapment right leg PLANNED PROCEDURE: Operation Date: 07/07/25 10:15 Proposed Procedures p Decompression of right common peroneal nerve.(Right) - David Prakash DPM
--- NOTE | 2025-07-07 09:50 | P.HP_ITS ---
Providers/Chief Complaint Primary Care Provider: Natalie Eric, APARTMENT LEASING SPECIALIST-C Chief Complaint: G62.9 History of Present Illness Oxana Rock is a 50 year old female presenting to clinic for post operative follow up after a ?Decompression of left common peroneal nerve DOS: 01/20/25. She complains of electrical intermitten pain at surgical site. She states that it feels like a bee sting. Would like to discuss having her right side done at this point given her improvement with the left postoperatively. Review of Systems General: Reports: 10 or more systems reviewed and unremarkable except in HPI and below Const: Denies: fever(s) or chills Eyes: Denies: change in vision Card: Denies: chest pain or palpitations Resp: Denies: dyspnea or productive cough GI: Denies: abdominal pain, nausea or vomiting : Denies: flank pain Musc: Reports: extremity pain, joint pain, joint stiffness, limited range of motion and deformity Skin/Breast: Reports: skin tenderness; Denies: rash Neuro: Reports: difficulty walking; Denies: numbness in extremities, sensory changes or frequent falls Psych: Denies: suicidal ideation [place]/Lymph: Denies: easy bruising Medications/Allergies Home Medications ?Medication ?Instructions ?Recorded ?Confirmed ?Last Taken ?Type acetaminophen 325 mg tablet 325 - 650 mg PO Q6H PRN Pa in 09/24/20 07/06/25 07/06/25 History (Tylenol) cholecalciferol (vitamin D3) 250 250 mcg PO DAILY 06/0607/06/25 01/18/25 History mcg (10,000 unit) capsule Disposable nebulizer circuit #1 ea 12/16/24 07/06/25 U nknown Rx albuterol sulfate 2.5 mg/3 mL 2.5 mg (3 mL) inhalation Q4H PRN 12/16/24 07/07/25 07/07/25 Rx (0.083 %) solution for nebulization shortness of breat h or wheezing #75 mL albuterol sulfate 90 mcg/actuation 2 puff inhalation Q 4H PRN 05/09/25 07/07/25 07/07/25 Rx aerosol inhaler bronchospasm #8.5 grams desvenlafaxine succinate 50 mg 50 mg PO DAILY #30 tabs 05/09/25 07/06/25 07/06/25 Rx tablet,extended release 24 hr (Pristiq) gabapentin 300 mg capsule 300 mg PO TID pain #90 caps 05/09/25 07/06/25 07/07/25 Rx losartan 25 mg tablet (Cozaar) 25 mg PO DAILY #30 tabs 05/09/25 07/06/25 07/06/25 Rx lovastatin 20 mg tablet 20 mg PO DAILY #30 tabs 04/1707/06/25 07/06/25 Rx methocarbamol 750 mg tablet 750 mg PO .every 12 hours #60 tabs 05/09/25 07/06/25 07/07/25 Rx mometasone-formoterol HFA 100 2 puff inhalation Q12H # 13 grams 05/09/25 07/06/25 07/06/25 Rx mcg-5 mcg/actuation aerosol inhaler (Dulera) pantoprazole 40 mg tablet,delayed 40 mg PO DAILY #30 t abs 05/09/25 07/06/25 07/06/25 Rx release (Protonix) tramadol 50 mg tablet 50 mg PO Q6H PRN pain #120 t abs 05/09/25 07/06/25 07/07/25 Rx spironolactone 50 mg tablet 50 mg PO BID #60 tabs 05/1607/06/25 07/06/25 Rx Allergies Allergy/AdvReac Type Severity Reaction Status Date / Time fenofibrate (From Tricor) AdvReac Severe ADR-Nausea Verified 05/09/25 10:35 celecoxib (From Celebrex) AdvReac ADR-Gastrointestinal Verified 05/09/25 10:35 Upset ibuprofen AdvReac vomiting Verified 05/09/25 10:35 PFSH PFSH: Medical History (Updated 07/07/25 @ 09:53 by David Prakash DPM) Myofascial pain syndrome Obesity (BMI 30-39.9) Hyperlipidemia, mixed COPD (chronic obstructive pulmonary disease) OA (osteoarthritis of spine) Osteoarthritis of spine at multiple levels Cancer of sigmoid colon T3N0M0 in June 19, 2020 Chronic migraine without aura, intractable, with status migrainosus Essential (primary) hypertension Anxiety and depression Surgical History Status post laparoscopic cholecystectomy (09/19/20) Status post colonoscopy (07/01/21) 06/19/20 Repeat in 3 years Status post laparoscopic-assisted sigmoidectomy (06/21/20) History of laparoscopy For adhesion History of section one time History of tubal ligation History of hysterectomy Family History Other Arthritis CAD (coronary artery disease) Cancer Diabetes Hypertension Stroke Denies family history of Anesthesia complication Bleeding disorder Social History Smoking and tobacco/nicotine status: current every day tobacco/nicotine user cigarettes Packs smoked per day: 2 Years cigarettes smoked: 35 [ Other cigarette details: started at age 13] Second hand smoke exposure: Yes Alcohol intake: current Alcohol intake frequency: holidays/special occasions only Substance/Drug Use: never Adopted: No Caregiver/support person: No Lives independently: Yes Household members: none Housing: House Marital status: Single Number of children: 3 service: No Current occupational status: employed Current occupation: [employer] Do you think of yourself as: Straight/Heterosexual Current gender identity: Female Dietary Habits: Caffeine: Yes Vital Signs Vitals Signs: Last Vital Signs Temp 97.7 F 07/07/25 09:12 Pulse 74 07/07/25 09:12 Resp 17 07/07/25 09:12 BP 132/93 07/07/25 09:12 Pulse Ox 99 07/07/25 09:12 O2 Del Method Room Air 07/07/25 09:12 Weight: Weight last 48 hrs Weight 223 lb Physical Exam Narrative: EXAM NARRATIVE: Patient is alert and oriented ?3 and in no acute distress. The following is a focused left lower extremity exam. VASCULAR: Dorsalis pedis and posterior tibial arteries palpable +2. Capillary refill time less than 3 seconds to the distal hallux bilaterally. Calf is supple and nontender proximally and distally. Mild edema at the operative site consistent with postoperative course. NEUROLOGICAL: Positive Tinel upon percussion of common peroneal nerve right lateral proximal leg. DERMATOLOGICAL: Left leg incision site is well coapted with sutures intact mild ecchymosis no erythema no dehiscence no drainage or warmth. MUSCULOSKELETAL: Muscle strength +5 in all 3 planes bilateral foot and ankle. CARDIOVASCULAR: S1, S2, normal rate, normal rhythm. Dorsalis pedis and pos terior tibial arteries palpable. LUNGS: Clear to auscltation, no use of acessory muscles, no crackles or wheezes. A&P Assessment and plan 1. Nerve entrapment syndrome of right lower extremity: 2. Right leg pain: Plan: Would like to proceed with decompression of right common peroneal nerve given her response to the left lower extremity she is happy with her postoperative results and would like to have an opportunity to proceed with the right on July 07, 2025. Plan I reviewed at length with the patient, the risks, potential complications, benefits, alternatives, expectations, and typical outcomes associated with the surgery. The risks and potential complications were explained in detail, including but not limited to infection, wound dehiscence or soft tissue complications, bleeding and hematoma, chronic edema, neuritis or nerve damage producing numbness or chronic pain, CRPS, failure to relieve pain or worsening pain, thick / painful / unsightly scar, limited motion / stiffness, malposition, delayed union, malunion, or nonunion, fracture, reaction to implants, anesthetic complications, venous thromboembolism, and deformity recurrence. I discussed the notion of no regrets with the patient as it pertains to complications and outcomes. The patient seemed to understand the nature of the proposed care and required convalescence. They asked appropriate questions, answered to their satisfaction. They are aware no guarantees can be made as to a satisfactory outcome and they understand there may be other possible unforeseen complications or outcomes not listed here that will be treated accordingly if they arise. There were no written or implied guarantees given to the patient. They gave informed consent to proceed. Planning on right common peroneal nerve decompression on July 07, 2025 will be outpatient. Follow-up in clinic week prior for updated H&P. PDMP PDMP Reviewed: Not Reviewed Coding Level of Care Code Acute Code for [facility] Fwd Diagnoses Nerve entrapment syndrome of right lower extremity G57.91 Right leg pain M79.604
[2025-07-07] MEDS: ceFAZolin 2,000 mg SDV 2000 MG IVP (09:56)
[2025-07-07] MEDS: BUPivacaine 0.5% INJ 30 mL XX (10:19)
[2025-07-07] MEDS: BUPivacaine liposome 13.3 mg/mL SDV 20 mL 266 MG INFILTRATI (10:19)
[2025-07-07] MEDS: tranexamic acid 1,000 mg/10mL SDV 1000 MG XX (10:20)
--- NOTE | 2025-07-07 10:45 | P.BOP_ITS ---
Date of Procedure: 01/29/24 Surgeon: David Prakash DPM [place] Operator(s): Anca Procedure(s) performed: Peroneal nerve decompression right leg Findings of the procedure(s): Entrapped right peroneal nerve Estimated blood loss: 2 mL Specimen(s) removed: None Post-operative diagnosis: Nerve entrapment right leg
--- NOTE | 2025-07-07 10:46 | PM.OP ---
Operative Report Date of procedure: July 07, 2025 Pre-op diagnosis: Peripheral polyneuropathy G62.9 Foot pain, right M79.672 Entrapment of right lower extremity nerve G57.82 Post-op diagnosis: Peripheral polyneuropathy G62.9 Foot pain, right M79.672 Entrapment of right lower extremity nerve G57.82 Procedure done: Decompression of right common peroneal nerve. CPT code 79219 Implants: 4-0 Monocryl, 4-0 nylon Surgeon: David Prakash DPM Transfer Table Operator Helper: Natalia Simeon Estimated blood loss: 2 mL 26 minutes Complications: No complications Brief History: 50-year-old female with a history of nerve entrapment presenting with peripheral neuropathy. Nerve conduction studies suggest left peroneal motor axonal neuropathy and bilateral tarsal tunnel syndrome. Symptoms are severe in the lower extremities, particularly the left, impacting her functional activities like playing with grandchildren. There is a noted reluctance to undergo invasive procedures like surgery. The primary complaint today focuses on managing neuropathy symptoms with potential interventions discussed, including nerve release procedures. 1. Tarsal tunnel syndrome, bilateral lower limbs G57.53 Although current focus remains on the most symptomatic right side, bilateral symptoms warrant future consideration for corrective procedures should initial interventions prove beneficial. 2. Bilateral Peripheral Neuropathy Peripheral neuropathy management to focus on symptom relief. Discussed surgical options like nerve release to alleviate symptomatic exacerbation, particularly on the right side. Neurostimulator placement consultation planned with Dr. Nguyen to consider less invasive treatment options. 3. Right peroneal Motor Axonal Neuropathy The need for right peroneal nerve decompression was reviewed, considering its substantial contribution to symptoms. Surgery to be evaluated based on consultation outcomes and patient willingness. - Continue consultation with Dr. Nguyen regarding nerve stimulator discussion. - Consider non-surgical methods and lifestyle modifications while evaluating surgical options. - Monitor neuropathy symptoms and report significant changes immediately. - Maintain safe levels of physical activity and avoid strenuous exertion post-consultation. - Stop smoking and reduce energy drink consumption to minimize health risks. The current management emphasizes alleviating the most severe manifestations of peripheral neuropathy while considering less invasive treatments first. The primary goal is symptom relief while preserving patient functional capacity, balancing between procedural intervention and the existing comfort level. Potential nerve release interventions are to be weighed against her reluctance for invasive procedures. Nerve stimulator placement remains an alternative upon further examination. The proposed approach is a stepwise escalation, starting with patients' primary complaints, adjusting strategies as treatment progresses. The emphasis remains on informed decision-making with the patient, ensuring understanding of risks, benefits, and procedural implications. Procedure: Under mild sedation patient was brought to the operating room and the patient was placed in the supine position on the operating table. Well-padded pneumatic thigh tourniquet to the right thigh was applied. Local field block performed in a V-block fashion to the right proximal lateral leg with Marcaine and Exparel. The right lower extremity was prepped and draped in a sterile fashion. Right lower extremity was exanguinated with Esmarch bandage and tourniquet inflated to 250 mmHg. A longitudinal incision, approximately 4 cm in length, was made overlying the fibular head, centered over the area of maximal tenderness and nerve compression. The subcutaneous tissues were dissected, and the fascia overlying the peroneus longus muscle was identified. The fascia was carefully incised, and the peroneus longus muscle was retracted. The common peroneal nerve was identified as it coursed around the fibular neck. The nerve was carefully dissected free from surrounding tissues. Dense fibrous bands and scar tissue were noted compressing the nerve at the fibular head. These constricting bands were meticulously released using microsurgical techniques. The nerve was inspected along its course, and no further areas of compression were identified. Hemostasis was achieved with electrocautery. The wound was irrigated with sterile saline. The fascia was closed with 4-0 Monocryl the subcutaneous tissue was closed with 4-0 Monocryl, and the skin was closed with 4-0 nylon. A sterile dressing was applied. Findings: Dense fibrous bands compressing the common peroneal nerve at the fibular head. No other areas of nerve compression identified. The nerve appeared to be intact and without gross evidence of injury following decompression. Tourniquet was deflated and a prompt hyperemic response is noted to the distal digits of the right foot. Patient was transferred to the PACU with vital signs stable and vascular status intact. Following a period of postoperative monitoring she will be discharged home may be weightbearing as tolerated below threshold of pain was given at home care instructions and scheduled follow-up.
--- NOTE | 2025-07-07 10:54 | XRR_ITS ---
PROCEDURE INFORMATION: Exam: XR Right Foot Exam date and time: 07/07/2025 10:55 AM Age: 50 years old Clinical indication: Injury or trauma; Other: Stubbed toe; Blunt trauma; Foot; Right; Prior surgery; Surgery date: 1-6 months; Additional info: Stubbed second toe rule out fracture TECHNIQUE: Imaging protocol: Radiologic exam of the right foot. Views: 3 or more views. COMPARISON: [place] [id number] ORTH 09/27/2024 11:27 AM FINDINGS: Bones/joints: There is mild degenerative change with loss of joint space and osteophyte formation. No acute fracture or dislocation. No acute or aggressive bone lesion noted. No evidence of bone destruction. Prominent calcaneal enthesophyte. Soft tissues: Normal. XR/XR foot RT min 3V* [id number] IMPRESSION: No acute findings.
[2025-07-07] MEDS: fentaNYL 50 mcg/mL INJ 2mL IVP ×2 (10:58→11:05)
--- NOTE | 2025-07-07 12:00 | ANE.PACU2 ---
Inpatient post-anesthesia follow up: Airway intact: Yes Vital signs: Temperature 97.2 F Pulse Rate 64 Respiratory Rate 18 Blood Pressure 135/86 Pulse Oximetry 98 Oxygen Delivery Me thod Room Air Oxygen Flow Rate Fraction of Inspir ed Oxygen Hydration adequate: Yes Nausea and vomiting: No Pain level: 1 Mental status: Baseline
== END 2025-07-07 12:00 | disposition home or self-care (01) ==
PROVIDERS: PCP Nurse Practitioner; Visit Provider Podiatrist Foot & Ankle Surgery
PROC: (CPT 64708; principal; 2025-07-07 10:15)
DX: G57.82 Other specified mononeuropathies of left lower limb (principal); G62.9 Polyneuropathy, unspecified; J44.9 Chronic obstructive pulmonary disease, unspecified; I10 Essential (primary) hypertension; K21.9 Gastro-esophageal reflux disease without esophagitis; E66.9 Obesity, unspecified; Z68.32 Body mass index [BMI] 32.0-32.9, adult; Z85.038 Personal history of other malignant neoplasm of large intestine; F41.8 Other specified anxiety disorders; F17.210 Nicotine dependence, cigarettes, uncomplicated
CPT/HCPCS: 64712; 73630; J0666; J0690; J1100; J2250; J2405; J2704; J3010; J3490; J7030; J9999

== ENCOUNTER → 2025-08-24 08:58 | Outpatient (BNVA) | payer BC, MEDICAID, SELFPAY | PROVIDERS: PCP Nurse Practitioner; Visit Provider Nurse Practitioner | DX: I10 Essential (primary) hypertension (principal); E78.2 Mixed hyperlipidemia; E55.9 Vitamin D deficiency, unspecified | CPT/HCPCS: 80053; 80061; 81000; 82306; 82607; 83735; 84207; 84443; 85025 ==

== ENCOUNTER 2025-09-13 09:15 | Outpatient (CLI) | payer BC, MEDICAID, SELFPAY ==
--- NOTE | 2025-09-13 09:30 | MR_ITS ---
WS: [id number] MRI HEAD WITHOUT CONTRAST TECHNIQUE: Sagittal T1, T2 axial, T2 axial FLAIR, axial and coronal T1 images, axial susceptibility weighted imaging, axial diffusion weighted images, and coronal T2 images were obtained. CLINICAL INFORMATION: G43.711 - Chronic migraine without aura, intractable, wit... COMPARISON: CT head 2021 FINDINGS: No evidence of restricted diffusion to suggest acute ischemia. Mild supratentorial periventricular and subcortical white matter changes nonspecific in a patient this age but can be seen with hypertension, diabetes, small vessel changes, and migraine headaches. Normal posterior fossa. Normal vascular flow voids at the skull base. No extra-axial fluid collections. No evidence of mass or mass effect. Mucosal thickening in the ethmoid air cells. Mastoid air cells are well aerated. Normal posterior nasopharynx. No hemosiderin on susceptibility-weighted images. Normal optic chiasm and pituitary infundibulum. No other acute findings. MR/MR head wo con* [id number] IMPRESSION: 1. No evidence of restricted diffusion to suggest acute ischemia. 2. Mild supratentorial white matter changes described above. No significant pa renchymal volume loss. 3. No hemosiderin on susceptibility-weighted images. 4. Mild mucosal thickening in the ethmoid air cells. 5. No other acute findings.
== END 2025-09-13 09:16 | disposition home or self-care (01) ==
PROVIDERS: PCP Nurse Practitioner; Visit Provider Nurse Practitioner
DX: G43.711 Chronic migraine without aura, intractable, with status migrainosus (principal); R93.0 Abnormal findings on diagnostic imaging of skull and head, not elsewhere classified; J34.89 Other specified disorders of nose and nasal sinuses
CPT/HCPCS: 70551